=== PATIENT | male | born 1960 | race Two or more races ===

== ENCOUNTER 2020-04-10 08:38 | Outpatient (REF) | payer OTHER, SELFPAY ==
[2020-04-10 09:44] LABS: Alanine Aminotransferase 35 U/L (0-40); Albumin Level 4.1 g/dL (3.5-5.0); Alkaline Phosphatase 83 U/L (39-117); Anion Gap 10 (12-20); Aspartate Amino Transferase 16 U/L (5-37); Bilirubin Total 0.8 mg/dL (0.0-1.0); Blood Urea Nitrogen 17 mg/dL (9-16); Calcium 9.6 mg/dL (8.4-10.2); Carbon Dioxide 31 mmol/L (22-29); Chloride 101 mmol/L (96-108); Cholesterol 141 mg/dL; Estimated Glomerular Filt Rate 57; Glucose Fasting 178 mg/dL (60-99); HDL Cholesterol 35 mg/dL; LDL Cholesterol Calculated 87 mg/dl; Potassium 4.8 mmol/l (3.3-5.1); Sodium 137 mmol/L (135-145); Total Protein 7.1 g/dL (6.5-8.0); Triglycerides 99 mg/dL
[2020-04-10 10:07] LABS: Vitamin D 25-OH Total 29.2 ng/mL (>30)
[2020-04-10 11:06] LABS: Creatinine Urine 122.33 mg/dL; Microalbum/Creatinine Ratio Ur 11.4 ug/mg cr
== END 2020-04-10 08:39 | disposition home or self-care (01) ==
LOC: HO.LAB 08:38
PROVIDERS: PCP Internal Medicine; Visit Provider Internal Medicine
DX: E11.9 Type 2 diabetes mellitus without complications (principal); E55.9 Vitamin D deficiency, unspecified
CPT/HCPCS: 80053; 80061; 82043; 82306

== ENCOUNTER 2020-04-19 08:00 | Outpatient (RCR) | payer OTHER, SELFPAY | END 2020-05-15 07:41 | disposition home or self-care (01) | LOC: HO.WCC 08:00 | PROVIDERS: Visit Provider Physician Assistant | DX: L23.7 Allergic contact dermatitis due to plants, except food (principal); E11.40 Type 2 diabetes mellitus with diabetic neuropathy, unspecified; I10 Essential (primary) hypertension; Z79.84 Long term (current) use of oral hypoglycemic drugs | CPT/HCPCS: 99204; 99212 ==

== ENCOUNTER 2020-06-28 07:25 | Outpatient (REF) | payer OTHER, SELFPAY ==
[2020-06-28 08:02] LABS: MANUAL DIFF FLAG NO
[2020-06-28 08:10] LABS: Basophils Percent Auto 0.4 % (0-2); Eosinophils Absolute Auto 0.3 X10*3/uL (0.0-0.4); Eosinophils Percent Auto 3.2 % (0-4); Hematocrit 45.4 % (42-52); Hemoglobin 15.3 g/dl (14.0-18.0); Imm Gran Abs Auto 0.07 X10*3/uL (0.00-0.03); Imm Gran Pct Auto 0.8 % (0.0-0.4); Lymphocytes Absolute Auto 1.9 X10*3/uL (1.2-4.9); Lymphocytes Percent Auto 20.7 % (20-40); Mean Corpuscular HGB Conc 33.7 g/dl (31.0-36.0); Mean Corpuscular Hemoglobin 31.3 pg (27.0-33.0); Mean Corpuscular Volume 92.8 fL (80-98); Mean Platelet Volume 11.2 fL (9.4-12.4); Monocytes Absolute Auto 0.8 X10*3/uL (0.1-1.2); Monocytes Percent Auto 8.7 % (2-11); Neutrophils Absolute Auto 6.1 X10*3/uL (2.0-8.3); Neutrophils Percent Auto 66.2 % (45-73); Platelet Count 184 X10*3/uL (160-400); Red Blood Count 4.89 X10*6/uL (4.60-5.80); Red Cell Distribution Width 12.9 % (11.0-16.0); White Blood Count 9.2 X10*3/uL (4.8-10.8)
[2020-06-28 08:40] LABS: Alanine Aminotransferase 29 U/L (0-40); Albumin Level 4.3 g/dL (3.5-5.0); Alkaline Phosphatase 69 U/L (39-117); Anion Gap 10 (12-20); Aspartate Amino Transferase 18 U/L (5-37); Bilirubin Total 0.4 mg/dL (0.0-1.0); Blood Urea Nitrogen 16 mg/dL (9-16); Calcium 9.1 mg/dL (8.4-10.2); Carbon Dioxide 28 mmol/L (22-29); Chloride 105 mmol/L (96-108); Cholesterol 191 mg/dL; Estimated Glomerular Filt Rate > 60; Glucose Fasting 115 mg/dL (60-99); HDL Cholesterol 35 mg/dL; LDL Cholesterol Calculated 117 mg/dl; Potassium 4.4 mmol/L (3.3-5.1); Sodium 139 mmol/L (135-145); Total Protein 7.1 g/dL (6.5-8.0); Triglycerides 197 mg/dL
[2020-06-28 08:42] LABS: Creatinine Urine 169.15 mg/dL; Microalbum/Creatinine Ratio Ur 11.8 ug/mg cr
[2020-07-03 13:58] LABS: Immunoglobulin A 428 mg/dL (70-320)
[2020-07-04 12:27] LABS: Transglutaminase Ab IgG 2 U/mL; Transglutaminase IgA 1 U/mL
[2020-07-10 21:52] LABS: Endomysial IgA Antibody Negative (Negative)
== END 2020-06-28 07:26 | disposition home or self-care (01) ==
LOC: HO.LAB 07:25
PROVIDERS: PCP Internal Medicine; Visit Provider Internal Medicine
DX: E11.9 Type 2 diabetes mellitus without complications (principal); E78.5 Hyperlipidemia, unspecified; R21 Rash and other nonspecific skin eruption
CPT/HCPCS: 36415; 80053; 80061; 82043; 82784; 83516; 85025; 86003; 86255; 86256

== ENCOUNTER 2021-05-05 06:58 | Outpatient (REF) | payer OTHER, SELFPAY ==
--- NOTE | ~2021-05-05 | XR_ITS ---
EXAMINATION: XR HIP, RIGHT CLINICAL INFORMATION: Pain. COMPARISON: None TECHNIQUE: Two views of the right hip. FINDINGS: The femoral head contour is smooth. There is some mild irregularity of the labral attachment and sclerosis in the region. The joint space is fairly well preserved. No significant osteophytic spurring. Some mild irregularity at the level of the lesser trochanter may be degenerative. XR/XR hip RT min 2V IMPRESSION: The femoral head contour is smooth. Some mild degenerative changes are felt to be present.
[2021-05-05 08:21] LABS: Alanine Aminotransferase 39 U/L (0-40); Albumin Level 4.3 g/dL (3.5-5.0); Alkaline Phosphatase 64 U/L (39-117); Anion Gap 11 (12-20); Aspartate Amino Transferase 20 U/L (5-37); Bilirubin Total 0.6 mg/dL (0.0-1.0); Blood Urea Nitrogen 17 mg/dL (9-16); Calcium 9.8 mg/dL (8.4-10.2); Carbon Dioxide 28 mmol/L (22-29); Chloride 104 mmol/L (96-108); Cholesterol 117 mg/dL; Estimated Glomerular Filt Rate 59; Glucose Fasting 121 mg/dL (60-99); HDL Cholesterol 32 mg/dL; LDL Cholesterol Calculated 63 mg/dl; Potassium 4.1 mmol/L (3.3-5.1); Sodium 139 mmol/L (135-145); Total Protein 6.9 g/dL (6.5-8.0); Triglycerides 111 mg/dL
[2021-05-05 09:19] LABS: Creatinine Urine 99.84 mg/dL
[2021-05-09 13:20] LABS: Vitamin D 25-OH, D2 <4 ng/mL; Vitamin D 25-OH, D3 29 ng/mL; Vitamin D 25-OH, Total 29 ng/mL (30-100)
== END 2021-05-05 06:59 | disposition home or self-care (01) ==
LOC: HO.XRAY 06:58
PROVIDERS: PCP Internal Medicine; Visit Provider Internal Medicine
DX: M25.551 Pain in right hip (principal); E78.5 Hyperlipidemia, unspecified; E11.9 Type 2 diabetes mellitus without complications; E55.9 Vitamin D deficiency, unspecified
CPT/HCPCS: 36415; 73502; 80053; 80061; 82043; 82306

== ENCOUNTER 2021-12-22 06:59 | Outpatient (REF) | payer OTHER, SELFPAY ==
[2021-12-22 07:58] LABS: Alanine Aminotransferase 32 U/L (0-40); Albumin Level 4.3 g/dL (3.5-5.0); Alkaline Phosphatase 68 U/L (39-117); Anion Gap 14 (12-20); Aspartate Amino Transferase 20 U/L (5-37); Bilirubin Total 0.4 mg/dL (0.0-1.0); Blood Urea Nitrogen 16 mg/dL (9-16); Calcium 9.4 mg/dL (8.4-10.2); Carbon Dioxide 25 mmol/L (22-29); Chloride 107 mmol/L (96-108); Cholesterol 167 mg/dL; Estimated Glomerular Filt Rate > 60; Glucose Fasting 119 mg/dL (60-99); HDL Cholesterol 34 mg/dL; LDL Cholesterol Calculated 112 mg/dl; Potassium 4.9 mmol/L (3.3-5.1); Sodium 141 mmol/L (135-145); Total Protein 7.2 g/dL (6.5-8.0); Triglycerides 109 mg/dL
[2021-12-22 09:15] LABS: Creatinine Urine 112.03 mg/dL
[2021-12-27 13:22] LABS: Vitamin D 25-OH, D2 <4 ng/mL; Vitamin D 25-OH, D3 39 ng/mL; Vitamin D 25-OH, Total 39 ng/mL (30-100)
== END 2021-12-22 07:00 | disposition home or self-care (01) ==
LOC: HO.LAB 06:59
PROVIDERS: PCP Internal Medicine; Visit Provider Internal Medicine
DX: E11.9 Type 2 diabetes mellitus without complications (principal); E55.9 Vitamin D deficiency, unspecified; E78.5 Hyperlipidemia, unspecified
CPT/HCPCS: 36415; 80053; 80061; 82043; 82306

== ENCOUNTER 2022-04-27 07:19 | Outpatient (REF) | payer OTHER, SELFPAY ==
[2022-04-27 08:34] LABS: Creatinine Urine 157.93 mg/dL; Microalbum/Creatinine Ratio Ur 11.3 ug/mg cr
[2022-04-27 08:59] LABS: Alanine Aminotransferase 41 U/L (0-40); Albumin Level 4.4 g/dL (3.5-5.0); Alkaline Phosphatase 75 U/L (39-117); Anion Gap 11 (12-20); Aspartate Amino Transferase 21 U/L (5-37); Bilirubin Total 0.5 mg/dL (0.0-1.0); Blood Urea Nitrogen 19 mg/dL (9-16); Calcium 9.9 mg/dL (8.4-10.2); Carbon Dioxide 30 mmol/L (22-29); Chloride 106 mmol/L (96-108); Cholesterol 102 mg/dL; Estimated Glomerular Filt Rate 55; Glucose Fasting 131 mg/dL (60-99); HDL Cholesterol 33 mg/dL; LDL Cholesterol Calculated 49 mg/dl; Potassium 4.8 mmol/L (3.3-5.1); Sodium 142 mmol/L (135-145); Total Protein 7.2 g/dL (6.5-8.0); Triglycerides 103 mg/dL; Vitamin D 25-OH Total 40.7 ng/mL (>30)
== END 2022-04-27 07:20 | disposition home or self-care (01) ==
LOC: HO.LAB 07:19
PROVIDERS: PCP Internal Medicine; Visit Provider Internal Medicine
DX: E78.5 Hyperlipidemia, unspecified (principal); E55.9 Vitamin D deficiency, unspecified; E11.9 Type 2 diabetes mellitus without complications; E78.00 Pure hypercholesterolemia, unspecified
CPT/HCPCS: 36415; 80053; 80061; 82043; 82306

== ENCOUNTER 2022-08-26 06:59 | Outpatient (REF) | payer OTHER, SELFPAY ==
[2022-08-26 08:01] LABS: Alanine Aminotransferase 32 U/L (0-40); Albumin Level 4.3 g/dL (3.5-5.0); Alkaline Phosphatase 65 U/L (39-117); Anion Gap 11 (12-20); Aspartate Amino Transferase 20 U/L (5-37); Bilirubin Total 0.6 mg/dL (0.0-1.0); Blood Urea Nitrogen 18 mg/dL (9-16); Calcium 9.6 mg/dL (8.4-10.2); Carbon Dioxide 27 mmol/L (22-29); Chloride 107 mmol/L (96-108); Cholesterol 94 mg/dL; Estimated Glomerular Filt Rate 54; Glucose Fasting 128 mg/dL (60-99); HDL Cholesterol 29 mg/dL; LDL Cholesterol Calculated 46 mg/dl; Potassium 4.4 mmol/L (3.3-5.1); Sodium 141 mmol/L (135-145); Total Protein 6.9 g/dL (6.5-8.0); Triglycerides 98 mg/dL
[2022-08-26 08:14] LABS: Vitamin D 25-OH Total 47.6 ng/mL (>30)
[2022-08-26 08:33] LABS: Creatinine Urine 113.89 mg/dL; Microalbum/Creatinine Ratio Ur 8.7 ug/mg cr
== END 2022-08-26 07:00 | disposition home or self-care (01) ==
LOC: HO.LAB 06:59
PROVIDERS: PCP Internal Medicine; Visit Provider Internal Medicine
DX: E78.5 Hyperlipidemia, unspecified (principal); E55.9 Vitamin D deficiency, unspecified; E78.00 Pure hypercholesterolemia, unspecified; E11.9 Type 2 diabetes mellitus without complications
CPT/HCPCS: 36415; 80053; 80061; 82043; 82306

== ENCOUNTER 2022-12-28 07:06 | Outpatient (REF) | payer MEDICARE, MEDICAID, SELFPAY ==
[2022-12-28 08:44] LABS: Alanine Aminotransferase 24 U/L (0-40); Albumin Level 4.2 g/dL (3.5-5.0); Alkaline Phosphatase 63 U/L (39-117); Anion Gap 14 (12-20); Aspartate Amino Transferase 19 U/L (5-37); Bilirubin Total 0.4 mg/dL (0.0-1.0); Blood Urea Nitrogen 20 mg/dL (9-16); Calcium 9.5 mg/dL (8.4-10.2); Carbon Dioxide 24 mmol/L (22-29); Chloride 107 mmol/L (96-108); Cholesterol 98 mg/dL; Estimated Glomerular Filt Rate 60; Glucose Fasting 105 mg/dL (60-99); HDL Cholesterol 36 mg/dL; LDL Cholesterol Calculated 48 mg/dl; Potassium 4.4 mmol/L (3.3-5.1); Sodium 141 mmol/L (135-145); Total Protein 7.3 g/dL (6.5-8.0); Triglycerides 71 mg/dL
[2022-12-28 09:03] LABS: Vitamin D 25-OH Total 49.3 ng/mL (>30)
[2022-12-28 09:09] LABS: Folate 16.4 ng/mL (> or = 4.0); Vitamin B12 479 pg/mL (200-900)
[2022-12-28 09:37] LABS: Creatinine Urine 95.12 mg/dL; Microalbum/Creatinine Ratio Ur 7.3 ug/mg cr
== END 2022-12-28 07:07 | disposition home or self-care (01) ==
LOC: HO.LAB 07:06
PROVIDERS: PCP Internal Medicine; Visit Provider Internal Medicine
DX: E55.9 Vitamin D deficiency, unspecified (principal); E53.8 Deficiency of other specified B group vitamins; E11.9 Type 2 diabetes mellitus without complications; E78.5 Hyperlipidemia, unspecified
CPT/HCPCS: 36415; 80053; 80061; 82043; 82306; 82607; 82746

== ENCOUNTER 2023-01-05 13:20 | Outpatient (AMB) | payer MEDICARE, MEDICAID, SELFPAY ==
--- NOTE | 2023-01-05 13:30 | MHC.PC.OV ---
Vital Signs 01/05/23 13:42 Height 5 ft 5 in Weight 177 lb 8 oz BMI 29.5 BP 132/84 Blood Pressure Location Lt brachial Position Sitting Pulse 53 Pulse Source Pulse Oximeter Pulse Oximetry (%) 98 Intake Visit Reasons: dm Intake Note: Pt here for DM type II F/U. Emergency Medicine Physician Assistant Required: No Accompanied by: Self / Same As Patient Allergies amlodipine Allergy (Intermediate, Verified 01/05/23 13:45) palpitations, palpatations atorvastatin Allergy (Intermediate, Verified 01/05/23 13:45) numbness and tingling hydrochlorothiazide Allergy (Intermediate, Verified 01/05/23 13:45) loopiness Medication List - Last Reconciled 01/05/23 by Tahmina Gordon MD cholecalciferol (vitamin D3) 25 mcg PO DAILY 90 days lisinopril 10 mg PO DAILY metformin 500 mg PO DAILY 90 days rosuvastatin 20 mg PO DAILY 90 days sertraline 25 mg PO DAILY 90 days triamcinolone acetonide 0.1% 1 appl topical DAILY 30 days Tobacco use date assessed: 08/31/22 Fall risk assessment: No Falls in past year Last assessed Fall Risk: 01/05/23 Dental Screening Dental Screen Date: 01/05/23 Did you have a dental visit in the last 12 months?: No Did you have a dental problem in the last 6 months where you did not have access to dental care?: No Was dental information given to patient?: Yes HPI HPI Comments History of Present Illness Details This is a 63-year-old male with diabetes mellitus type 2, hypertension, pure hypercholesterolemia and low vitamin-D has well as anxiety that comes today for follow-up on his conditions. A1c within goal. Blood pressure stable. LDL within goal. On supplements for vitamin-D. Anxiety stable with sertraline. No chest pain or shortness of breath. [facility], [facility] Medical History Diabetes mellitus Essential hypertension Hypovitaminosis D Pure hypercholesterolemia Rash Right hip pain Wound cellulitis Surgical History History of vasectomy Family History Father No problems noted. Mother CVD (cardiovascular disease) Diabetes Social History Housing: Apartment Alcohol intake: former Patient Tobacco Use Status: Never used Tobacco e-Cigarette/Vaping Use: Never Used Second Hand Smoke Exposure: No service: No Current occupational status: employed Cognitive needs: No Hearing needs: No Vision needs: No Questionnaire Thrive Questionnaire Date Thrive assessed: 08/31/22 MARILOU-7 AMB Questionnaire MARILOU-7 Date MARILOU - 7 assessed: 08/31/22 Source: Developed by Drs. Cameron Massey, Elizabeth Correa, Bernabe Rodriguez and colleagues, with an educational red from [employer]. Review of Systems Const All systems reviewed & are unremarkable except as noted in HPI and below Eyes Reports no additional complaints, Denies change in vision and Denies other visual disturbances Card Denies chest pain at rest, Denies chest pain with activity, Denies edema, Denies irregular heart rhythm, Denies claudication, Denies dyspnea, Denies dyspnea on exertion, Denies orthopnea, Denies paroxysmal nocturnal dyspnea and Denies slow heart rate Resp Denies cough, Denies dyspnea and Denies dyspnea on exertion GI Denies abdominal pain, Denies change in bowel habits, Denies excessive flatus, Denies nausea and Denies vomiting Denies urinary hesitancy, Denies urinary incontinence and Denies urinary urgency Musc Denies abnormal gait, Denies atrophy, Denies deformity and Denies limited range of motion Skin/Breast Denies bleeding lesions, Denies changing lesions and Denies rash Neuro Denies abnormal gait and Denies lack of coordination Physical exam (Primary Care) Vital Signs: Last Vital Signs Pulse 53 01/05/23 13:42 BP 132/84 01/05/23 13:42 Pulse Ox 98 01/05/23 13:42 BMI result Body Mass Index 29.5 Tobacco/Smoking Status: Tobacco use Status Tobacco use date assessed 08/31/22 01/05/23 13:30 Patient Tobacco Use Status Never used Tobacco 01/05/23 13:30 e-Cigarette/Vaping Use Never Used 01/05/23 13:30 Thrive Assessment: Date of Thrive Assessment Date Thrive assessed 08/31/22 01/05/23 13:30 Eyes General: appearance normal, both eyes and all related structures Eyelids: Yes eyelids normal Conjunctivae: conjunctivae normal Neck Neck: Yes normal visual inspection and Yes supple Resp Effort & Inspection: normal respiratory effort Auscultation: clear to auscultation bilaterally Cardio Jugular venous distension: no JVD Rate: regular rate Rhythm: regular rhythm Heart sounds: S1 normal heart sound present and S2 normal heart sound present Extrem General: Yes full ROM Results AMB Hemoglobin A1c AMB Hemoglobin A1c 6.3 % Last Edit by YOAN Tuttle on 01/05/23 13:51 Assessment and Plan Assessment & Plan (1) Diabetes mellitus: Code(s): E11.9 - Type 2 diabetes mellitus without complications Qualifiers: Diabetes mellitus type: type 2 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 A1c goal is equal or less than 7%. (2) Essential hypertension: Code(s): I10 - Essential (primary) hypertension Plan: Continue lisinopril. Blood pressure goal is equal or less than 130/80. (3) Pure hypercholesterolemia: Code(s): E78.00 - Pure hypercholesterolemia, unspecified Plan: Continue statins. LDL goal is less than 70 (4) Anxiety: Code(s): F41.9 - Anxiety disorder, unspecified Plan: Continue sertraline (5) Hypovitaminosis D: Code(s): E55.9 - Vitamin D deficiency, unspecified Plan: Continue vitamin-D supplements Orders: Orders Comprehensive [place]. Panel Fast 4 Months E11.9 - Type 2 diabetes mellitus without complications Lipid Panel 4 Months E78.5 - Hyperlipidemia, unspecified Vitamin D 25-OH Total 4 Months E55.9 - Vitamin D deficiency, unspecified Microalbumin, Random (w Creat) 4 Months E11.9 - Type 2 diabetes mellitus without complications AMB Hemoglobin A1c Today E11.9 - Type 2 diabetes mellitus without complications Medications: Refilled triamcinolone acetonide 0.1% 1 appl topical DAILY 30 days 30 grams 1RF Coding Level of Care Code Est Pt Level 4 (64142) Diagnoses Diabetes mellitus E11.9 Diabetes mellitus type: type 2 Diabetes mellitus fci insulin use: without termite technician use Diabetes mellitus complication status: without complication Essential hypertension I10 Pure hypercholesterolemia E78.00 Anxiety F41.9 Hypovitaminosis D E55.9 Time Spent (min) 23
[2023-01-05 13:42] VITALS: BP 132/84; PULSE 53; O2SAT 98; BMI 29.5
== END 2023-01-05 13:57 | disposition home or self-care (01) ==
PROVIDERS: Visit Provider Internal Medicine
DX: E11.9 Type 2 diabetes mellitus without complications (principal); I10 Essential (primary) hypertension; F41.9 Anxiety disorder, unspecified; E55.9 Vitamin D deficiency, unspecified; E78.00 Pure hypercholesterolemia, unspecified
CPT/HCPCS: 83036; 99214

== ENCOUNTER 2023-04-22 11:43 | Emergency (ER) | payer OTHER, SELFPAY ==
--- NOTE | ~2023-04-22 | CT_ITS ---
EXAMINATION: CT ABDOMEN AND PELVIS WITHOUT CONTRAST CLINICAL INFORMATION: Flank pain. COMPARISON: None available. TECHNIQUE: Multidetector volumetric imaging was performed from the superior aspect of the liver through the pubic symphysis. Sagittal and coronal reformatted images were obtained on the technologist's workstation. This CT examination was performed using dose optimization techniques as appropriate, variously including the following: *Automated exposure control *Adjustment of mA and/or kV according to patient size (this includes techniques or standardized protocols for targeted exams where dose is matched to indication/reason for exam; i.e. extremities or head) *Use of iterative reconstruction technique DLP: 538 mGy-cm FINDINGS: LUNG BASES: The visualized lung bases are unremarkable. LIVER, GALLBLADDER, AND BILIARY TREE: The liver is of diminished attenuation. No focal liver lesions are seen. There is no intrahepatic biliary duct dilatation. The gallbladder is unremarkable with no evidence of radiopaque gallstones, gallbladder wall thickening, or obvious pericholecystic inflammatory changes. PANCREAS: Unremarkable. SPLEEN: Unremarkable. ADRENAL GLANDS: Unremarkable. KIDNEYS AND URETERS: A 1.4 cm calculus mid to upper pole left kidney with left upper pole collecting system/calyceal distention. There is also a 5 mm calculus midpole left kidney. There is no hydronephrosis. BLADDER: Unremarkable. GASTROINTESTINAL TRACT: There are diverticula of the descending and proximal sigmoid colon without diverticulitis. The appendix is visualized and is within normal limits ABDOMINAL WALL: No significant hernia is appreciated. LYMPH NODES: Normal. VASCULAR: Unremarkable. PELVIC VISCERA: Unremarkable. OSSEOUS STRUCTURES: Unremarkable. CT/CT abdomen pelvis wo IV con IMPRESSION: Diverticula of the descending and the sigmoid colon without diverticulitis. 1.4 cm calculus mid to upper pole left kidney with distended upper pole calyces/upper pole intrarenal hydronephrosis. Fatty infiltration of the liver. Fleischner guidelines were followed.
[2023-04-22 12:17] VITALS: BP 162/72; PULSE 54; RESP 18; TEMP 36.3; O2SAT 96; BMI 28.5
[2023-04-22 13:13] LABS: MANUAL DIFF FLAG NO
[2023-04-22 13:14] LABS: Basophils Absolute Auto 0.1 X10*3/uL (0.0-0.2); Basophils Percent Auto 0.5 % (0-2); Eosinophils Absolute Auto 0.2 X10*3/uL (0.0-0.4); Eosinophils Percent Auto 1.8 % (0-4); Hematocrit 44.6 % (42.0-52.0); Imm Gran Abs Auto 0.04 X10*3/uL (0.00-0.03); Imm Gran Pct Auto 0.4 % (0.0-0.4); Lymphocytes Absolute Auto 2.1 X10*3/uL (1.2-4.9); Lymphocytes Percent Auto 20.9 % (20-40); Mean Corpuscular HGB Conc 33.6 g/dl (31.0-36.0); Mean Corpuscular Hemoglobin 30.9 pg (27.0-33.0); Mean Corpuscular Volume 91.8 fL (80.0-98.0); Mean Platelet Volume 10.8 fL (9.4-12.4); Monocytes Absolute Auto 0.9 X10*3/uL (0.1-1.2); Monocytes Percent Auto 9.4 % (2-11); Neutrophils Absolute Auto 6.6 x10*3/uL (2.0-8.3); Platelet Count 177 X10*3/uL (160-400); Red Blood Count 4.86 X10*6/uL (4.60-5.80); Red Cell Distribution Width 12.5 % (11.0-16.0); White Blood Count 9.8 X10*3/uL (4.8-10.8)
[2023-04-22 13:27] LABS: Alanine Aminotransferase 27 U/L (0-40); Albumin Level 4.4 g/dL (3.5-5.0); Alkaline Phosphatase 64 U/L (39-117); Anion Gap 11 (12-20); Aspartate Amino Transferase 20 U/L (5-37); Bilirubin Total 0.4 mg/dL (0.0-1.0); Blood Urea Nitrogen 18 mg/dL (9-16); Calcium 10.1 mg/dL (8.4-10.2); Carbon Dioxide 28 mmol/L (22-29); Chloride 105 mmol/L (96-108); Creatinine Clr Calc Pharmacy 61.5; Estimated Glomerular Filt Rate 59; Glucose Random 149 mg/dL (60-115); Potassium 4.4 mmol/L (3.3-5.1); Sodium 140 mmol/L (135-145); Total Protein 7.6 g/dL (6.5-8.0)
--- NOTE | 2023-04-22 19:31 | ED.ABDPAIN ---
HPI - Abdominal Pain General Chief Complaint: Abdominal Pain Stated Complaint: Abd pain right side Time Seen by Provider: 04/22/23 19:27 Source: patient Mode of arrival: ambulatory Limitations: no limitations History of Present Illness HPI narrative: 63 yo male with PMH of HTN, HLD, DM here with c/o 1 month of R flank pain worse with deep breaths and certain movements. No known trauma, no GI or symptoms. no unexplained weight loss. He notes the pain has worsened over the past day. MD elicited complaint: abdominal pain and flank pain Pertinent past history: none Onset (ago): month(s) (1) Pain Consistency: constant Location: R flank Severity: moderate Quality: aching Radiation: none Migration to: no migration Exacerbating factors: other (breathing and movement) Relieving factors: nothing Associated symptoms: denies other symptoms Related Data Previous Rx's Medication Instructions Recorded sertraline 25 mg tablet 25 mg PO DAILY 90 days #90 tabs 04/30/22 rosuvastatin 20 mg tablet 20 mg PO DAILY 90 days #90 tabs 11/08/22 triamcinolone acetonide 0.1 % 1 appl topical DAILY 30 days #30 01/05/23 topical cream grams cholecalciferol (vitamin D3) 25 25 mcg PO DAILY 90 days #90 tabs 03/30/23 mcg (1,000 unit) tablet metformin 500 mg tablet 500 mg PO DAILY 90 days #90 tabs 03/30/23 lisinopril 10 mg tablet 10 mg PO DAILY #90 caps 03/31/23 lidocaine 5 % topical patch 1 patch topical DAILY #30 ea 04/22/23 Allergies Allergy/AdvReac Type Severity Reaction Status Date / Time amlodipine Allergy Intermediate palpitations, Verified 04/22/23 12:17 palpatations atorvastatin Allergy Intermediate numbness Verified 04/22/23 12:17 and tingling hydrochlorothiazide Allergy Intermediate loopiness Verified 04/22/23 12:17 Review of Systems Review of Systems Constitutional : No Weight loss, No Fever, No Chills ENT/Mouth : No sore throat, No Rhinorrhea Eyes: No Swelling, No Redness Cardiovascular : No Chest Pain, No SOB, NoEdema Respiratory : No Cough, No Sputum, No Wheezing Gastrointestinal : no Nausea, no Vomiting, no Diarrhea, positive abdominal Pain, No Hematochezia, No Melena Genitourinary : No Dysuria, No Urinary Frequency, No Hematuria, No Urgency Musculoskeletal : No joint pain, No Myalgias, No Joint Swelling Skin : No Skin Lesions, No rash Neuro : No Weakness, No Numbness, No Dizziness, No Headache Psych : No Anxiety/Panic, No Depression Heme/Lymph: No Bruising, No Lymphadenopathy Endocrine : No Polyuria, No Polydipsia All other systems reviewed and are negative. [facility] Past Medical History Attestation statement: The following information was validated with the patient. Source: old records reviewed Medical History Hypovitaminosis D Right hip pain Rash Wound cellulitis Pure hypercholesterolemia Essential hypertension Diabetes mellitus Surgical History History of vasectomy Family History Family History Father No problems noted. Mother CVD (cardiovascular disease) Diabetes Social History Social History Housing: Apartment Alcohol intake: former Patient Tobacco Use Status: Never used Tobacco e-Cigarette/Vaping Use: Never Used Second Hand Smoke Exposure: No Advance Directives: No Advance Directives Information Provided: Yes service: No Current occupational status: employed Cognitive needs: No Hearing needs: No Vision needs: No Physical Exam ED Vital Signs: Vital Signs - 24 hr 04/22/23 12:17 Temperature 97.4 F Pulse Rate 54 Respiratory Rate 18 Blood Pressure 162/72 H Pulse Oximetry 96 Oxygen Delivery Method Room Air BMI result Body Mass Index 28.5 Appearance: Alert. Oriented X3. No acute distress. Eyes: Pupils equal, round and reactive to light. ENT: Pharynx normal. Neck: Normal inspection. Neck supple. CVS: Normal heart rate and rhythm. Pulses normal. Respiratory: No respiratory distress. Breath sounds normal. Abdomen: Soft and mild R sided abdominal pain. Skin: Skin warm and dry. Normal skin color. Normal skin turgor. Extremities: No lower extremity edema. No calf ttp Neuro: Oriented X 3. No motor deficit. No sensory deficit. Medical Decision Making Medical Decision Making MDM Narrative: 63 yo male with PMH of HTN, HLD, DM here with c/o R flank pain worse with moving and breathing denies trauma at this time will need UA, labs, CT scan for renal colic and mass. Differential Diagnosis Differential Diagnoses: The differential diagnosis associated with the presentation includes renal colic, mass Admission/Observation Consideration of admission/observation: Escalation of care including admission/observation considered labs, UA and CT scan no acute findings stable for DC Lab Data MDM Lab Attestation statement: I reviewed the patient's lab results. 04/22/23 13:08 04/22/23 13:08 Labs: Lab Results 04/22/23 04/22/23 Range/Units 13:08 19:43 WBC 9.8 (4.8-10.8) X10*3/uL RBC 4.86 (4.60-5.80) X10*6/uL Hgb 15.0 (14.0-18.0) g/dl Hct 44.6 (42.0-52.0) % MCV 91.8 (80.0-98.0) fL MCH 30.9 (27.0-33.0) pg MCHC 33.6 (31.0-36.0) g/dl RDW 12.5 (11.0-16.0) % Plt Count 177 (160-400) X10*3/uL MPV 10.8 (9.4-12.4) fL Immature Gran % (Auto) 0.4 (0.0-0.4) % Neut % (Auto) 67.0 (45-73) % Lymph % (Auto) 20.9 (20-40) % [place] % (Auto) 9.4 (2-11) % Eos % (Auto) 1.8 (0-4) % Baso % (Auto) 0.5 (0-2) % Lymph # (Auto) 2.1 (1.2-4.9) X10*3/uL [place] # (Auto) 0.9 (0.1-1.2) X10*3/uL Eos # (Auto) 0.2 (0.0-0.4) X10*3/uL Baso # (Auto) 0.1 (0.0-0.2) X10*3/uL Abs Immat Gran (auto) 0.04 H (0.00-0.03) X10*3/uL Absolute Neuts (auto) 6.6 (2.0-8.3) x10*3/uL Absolute Nucleated RBC 0.000 (0.0-0.012) X10*3/uL Nucleated RBC % (auto) 0.0 (0.0-0.2) /100WBC Sodium 140 (135-145) mmol/L Potassium 4.4 (3.3-5.1) mmol/L Chloride 105 (96-108) mmol/L Carbon Dioxide 28 (22-29) mmol/L Anion Gap 11 L (12-20) BUN 18 H (9-16) mg/dL Creatinine 1.23 (0.5-1.4) mg/dL Estim Creat Clear Calc 61.5 Estimated GFR 59 Random Glucose 149 H (60-115) mg/dL Calcium 10.1 D (8.4-10.2) mg/dL Total Bilirubin 0.4 (0.0-1.0) mg/dL AST 20 (5-37) U/L ALT 27 (0-40) U/L Alkaline Phosphatase 64 (39-117) U/L Total Protein 7.6 (6.5-8.0) g/dL Albumin 4.4 (3.5-5.0) g/dL Urine Color Yellow Urine Appearance Clear Urine pH 5.5 (5.0-9.0) Ur Specific [place] 1.020 (1.005-1.025) Urine Protein Negative (Neg-Trace) mg/dL Urine Glucose (UA) 100 H (Negative) mg/dL Urine Ketones Negative (Negative) mg/dL Urine Blood Negative (Negative) Urine Nitrite Negative (Negative) Ur Leukocyte Esterase Negative (Negative) Independent Interpretation I performed an independent interpretation of an: CT Scan (no acute findings on CT scan to explain symptoms) Radiology Impression Discussion of test interpretation with radiology: I have reviewed the radiologist's reading. External Record Review External record reviewed: Inpatient record Prescription Management I considered prescription management with: Other Discharge Plan Discharge Clinical Impression: Acute right flank pain Patient Disposition: Home, Self-Care Instructions: Acute Abdominal Pain (ED) Additional Instructions: return for fevers, vomiting, worsening pain or any other concerns. please follow up with your primary care doctor about this pain. CT/CT abdomen pelvis wo IV con IMPRESSION: Diverticula of the descending and the sigmoid colon without diverticulitis. 1.4 cm calculus mid to upper pole left kidney with distended upper pole calyces/upper pole intrarenal hydronephrosis. Fatty infiltration of the liver. Prescriptions: New lidocaine 5 % adhesive patch,medicated 1 patch topical DAILY Qty: 30 0RF Rx Instructions: leave on most painful area for up to 12 hrs No Action rosuvastatin 20 mg tablet 20 mg PO DAILY 90 Days Qty: 90 1RF metformin 500 mg tablet 500 mg PO DAILY 90 Days Qty: 90 3RF cholecalciferol (vitamin D3) 25 mcg (1,000 unit) tablet 25 mcg PO DAILY 90 Days Qty: 90 3RF lisinopril 10 mg tablet 10 mg PO DAILY Qty: 90 2RF sertraline 25 mg tablet 25 mg PO DAILY 90 Days Qty: 90 0RF triamcinolone acetonide 0.1 % cream 1 appl topical DAILY 30 Days Qty: 30 1RF Referrals: Tahmina Mathias MD [Primary Care Provider] - 2 days
[2023-04-22 19:57] LABS: Appearance Urine Clear; Color Urine Yellow; Glucose Urine UA 100 mg/dL (Negative); Leukocyte Esterase Urine Negative (Negative); Nitrite Urine Negative (Negative); PH 5.5 (5.0-9.0); Urine Blood Negative (Negative); Urine Ketones Negative (Negative); Urine Protein Negative (Neg-Trace)
== END 2023-04-22 21:32 | disposition home or self-care (01) ==
PROVIDERS: Emergency Provider Emergency Medicine; PCP Internal Medicine
DX: R10.2 Pelvic and perineal pain (principal); R10.9 Unspecified abdominal pain; Z79.899 Other long term (current) drug therapy
CPT/HCPCS: 36415; 74176; 80053; 81003; 85025; 99282; 99284

== ENCOUNTER 2023-05-04 14:14 | Outpatient (AMB) | payer OTHER, SELFPAY ==
--- NOTE | 2023-05-04 14:26 | MHC.PC.OV ---
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 Accompanied by: Self / Same As Patient Allergies amlodipine Allergy (Intermediate, Verified 05/04/23 14:47) palpitations, palpatations atorvastatin Allergy (Intermediate, Verified 05/04/23 14:47) numbness and tingling hydrochlorothiazide Allergy (Intermediate, Verified 05/04/23 14:47) loopiness Medication List - Last Reconciled 05/04/23 by Tahmina Gordon MD cholecalciferol (vitamin D3) 25 mcg PO DAILY 90 days lidocaine 5% 1 patch topical DAILY lisinopril 10 mg PO DAILY metformin 500 mg PO DAILY 90 days rosuvastatin 20 mg PO DAILY 90 days triamcinolone acetonide 0.1% 1 appl topical DAILY 30 days Tobacco use date assessed: 08/31/22 Fall risk assessment: No Falls in past year Last assessed Fall Risk: 05/04/23 Dental Screening Dental Screen Date: 05/04/23 Did you have a dental visit in the last 12 months?: Yes Did you have a dental problem in the last 6 months where you did not have access to dental care?: No Was dental information given to patient?: Patient has dentist HPI HPI Comments History of Present Illness Details This is a 63-year-old male with diabetes mellitus type 2 that comes for his physical exam. A1c is within goal. Has diabetic eye exam appointment in May 2023. Last colonoscopy was 2014 and was normal. Had an episode of abdominal pain recently in which CT scan of abdomen and pelvis was done showing fatty liver and left 1.4 cm renal calculus and will be referred to Urology. No chest pain or shortness of breath. [facility] Medical History (Updated 05/04/23 @ 14:57 by Tahmina Gordon MD) Hypovitaminosis D Right hip pain Rash Wound cellulitis Pure hypercholesterolemia Essential hypertension Diabetes mellitus Surgical History History of vasectomy Family History Father No problems noted. Mother CVD (cardiovascular disease) Diabetes Social History Housing: Apartment Alcohol intake: former Patient Tobacco Use Status: Never used Tobacco e-Cigarette/Vaping Use: Never Used Second Hand Smoke Exposure: No service: No Current occupational status: employed Cognitive needs: No Hearing needs: No Vision needs: No Questionnaire Thrive Questionnaire Date Thrive assessed: 08/31/22 MARILOU-7 AMB Questionnaire MARILOU-7 Date MARILOU - 7 assessed: 08/31/22 Source: Developed by Drs. Cameron Massey, Elizabeth Correa, Bernabe Rodriguez and colleagues, with an educational red from [employer]. Review of Systems Const All systems reviewed & are unremarkable except as noted in HPI and below Eyes Reports no additional complaints, Denies change in vision and Denies other visual disturbances Card Denies chest pain at rest, Denies chest pain with activity, Denies edema, Denies irregular heart rhythm, Denies claudication, Denies dyspnea, Denies dyspnea on exertion, Denies orthopnea, Denies paroxysmal nocturnal dyspnea and Denies slow heart rate Resp Denies cough, Denies dyspnea and Denies dyspnea on exertion GI Denies abdominal pain, Denies change in bowel habits, Denies excessive flatus, Denies nausea and Denies vomiting Denies urinary hesitancy, Denies urinary incontinence and Denies urinary urgency Musc Denies abnormal gait, Denies atrophy, Denies deformity and Denies limited range of motion Skin/Breast Denies bleeding lesions, Denies changing lesions and Denies rash Neuro Denies abnormal gait, Denies behavioral changes, Denies confusion and Denies lack of coordination Psych Denies behavioral changes and Denies confusion Physical exam (Primary Care) Vital Signs: Last Vital Signs BP 142/82 H 05/04/23 14:29 BMI result Body Mass Index 27.7 Tobacco/Smoking Status: Tobacco use Status Tobacco use date assessed 08/31/22 05/04/23 14:27 Patient Tobacco Use Status Never used Tobacco 05/04/23 14:27 e-Cigarette/Vaping Use Never Used 05/04/23 14:27 Thrive Assessment: Date of Thrive Assessment Date Thrive assessed 08/31/22 05/04/23 14:27 Const General: No confusion Orientation/consciousness: patient oriented x3 and No confusion HENMT Head: Yes normal to inspection, Yes normocephalic and Yes atraumatic Ears: external ears normal Eyes General: appearance normal, both eyes and all related structures Eyelids: Yes eyelids normal Conjunctivae: conjunctivae normal Neck Neck: Yes normal visual inspection and Yes supple Resp Effort & Inspection: normal respiratory effort Auscultation: clear to auscultation bilaterally Cardio Jugular venous distension: no JVD Rate: regular rate Rhythm: regular rhythm Heart sounds: S1 normal heart sound present and S2 normal heart sound present GI Inspection: Yes normal to inspection Palpation (GI): Soft to palpation and nontender Auscultation: normal bowel sounds Skin General skin exam: no rashes or lesions noted Neuro General: patient oriented x3, no focal motor deficits and No confusion Extrem General: Yes full ROM Psych Appearance: grossly normal Office Procedures Flu Questionnaire Does the patient have a severe egg allergy?: No Results AMB Hemoglobin A1c AMB Hemoglobin A1c 6.6 % Last Edit by BRAVO Horton on 05/04/23 14:36 Immunizations flu vacc [id number] 6mos up(PF) 60 mcg(15 mcgx4)/0.5 mL IM syringe Performing Provider: Tahmina Gordon MD [facility] Documented (not given) by: BRAVO Horton on 05/04/23 14:29 Reason Not Given: Patient Refused Results Reviewed Results Reviewed: Laboratory Last Values Hgb A1c (Clinic) 6.6 % (4.0-6.0) H 05/04/23 14:25 Assessment and Plan Assessment & Plan (1) Physical exam: Code(s): Z00.00 - Encounter for general adult medical examination without abnormal findings Plan: Repeat in a year. 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 A1c goal is equal or less than 7%. Orders: Orders Lipid Panel 4 Months E78.5 - Hyperlipidemia, unspecified Comprehensive [place]. Panel Fast 4 Months Z00.00 - Encounter for general adult medical examination without abnormal findings AMB Hemoglobin A1c Today E11.9 - Type 2 diabetes mellitus without complications Influenza [id number] Immunization Today Z23 - Encounter for immunization Microalbumin, Random (w Creat) 4 Months E11.9 - Type 2 diabetes mellitus without complications Vitamin D 25-OH Total 4 Months E55.9 - Vitamin D deficiency, unspecified Referrals Urology Referral N20.0 - Calculus of kidney Medications: New lisinopril 20 mg PO DAILY 90 tabs 1RF 90 days Discontinued lisinopril Discontinued Reason: Patient Refused 10 mg PO DAILY 90 caps 2RF Coding Level of Care Code Est Pt Prev Care >65y(18808) Diagnoses Physical exam Z00.00 Type 2 diabetes mellitus without complication, without long-term current use of insulin E11.9 Diabetes mellitus type: type 2 Diabetes mellitus 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
[2023-05-04 14:29] VITALS: BP 142/82; BMI 27.7
== END 2023-05-04 14:58 | disposition home or self-care (01) ==
PROVIDERS: Visit Provider Internal Medicine
DX: Z00.00 Encounter for general adult medical examination without abnormal findings (principal); E11.9 Type 2 diabetes mellitus without complications
CPT/HCPCS: 83036; 99397

== ENCOUNTER 2023-06-01 08:44 | Outpatient (AMB) | payer OTHER, SELFPAY ==
--- NOTE | 2023-06-01 08:47 | A.OFFVIS_ITS ---
Intake Intake Visit Reasons: Kidney stone Intake Note: New Patient presents for initial visit for kidney stone Urology Medications: none Blood Thinner: none Cvicu Rn Required: No Accompanied by: Self / Same As Patient Allergies amlodipine Allergy (Intermediate, Verified 06/01/23 09:13) palpitations, palpatations atorvastatin Allergy (Intermediate, Verified 06/01/23 09:13) numbness and tingling hydrochlorothiazide Allergy (Intermediate, Verified 06/01/23 09:13) loopiness Medication List - Last Reconciled 06/01/23 by AIXA Lagos cholecalciferol (vitamin D3) 25 mcg PO DAILY 90 days lisinopril 20 mg PO DAILY 90 days metformin 500 mg PO DAILY 90 days rosuvastatin 20 mg PO DAILY 90 days triamcinolone acetonide 0.1% 1 appl topical DAILY 30 days HPI HPI Comments History of Present Illness Details Rosales is a very pleasant 63-year-old male patient of Dr.Roca Gordon. He has a past medical history of vitamin-D deficiency, hypercholesteremia, hypertension, and diabetes. He presents to the office today as a new patient for nephrolithiasis. In discussion with the patient today he reports having seeked emergency room care approximately 1 month ago for right- sided flank pain had been experiencing. Recent CT results reviewed with the patient today. A 1.4 cm calculus mid to upper pole left kidney with left upper pole collecting system/calyceal distention. There is also a 5 mm calculus midpole left kidney. There is no hydronephrosis. The bladder is unremarkable. When asked he denies any previous history of nephrolithiasis and or surgical intervention for nephrolithiasis. Discussed at length nephrolithiasis. Discussed potential causes of nephrolithiasis as well as treatment options of surveillance monitoring versus surgical intervention. He reports he continues with right-sided intermittent flank pain. However discussed nephrolithiasis on left side. Discussed ESWL versus ureteroscopy at length discussed risks and benefits of these treatment options. When asked he does report to be drinking plenty of water daily. He denies any bothersome urinary issues. He denies urinary urgency, urinary frequency, incontinence, nocturia, hematuria, dysuria, foul smelling urine, changes to urinary stream, flank pain, fever, and or chills. He is happy with h current voiding parameters. [facility] Medical History Hypovitaminosis D Right hip pain Rash Wound cellulitis Pure hypercholesterolemia Essential hypertension Diabetes mellitus Surgical History History of vasectomy Family History Father No problems noted. Mother CVD (cardiovascular disease) Diabetes Social History Housing: Apartment Alcohol intake: former Patient Tobacco Use Status: Never used Tobacco e-Cigarette/Vaping Use: Never Used Second Hand Smoke Exposure: No service: No Current occupational status: employed Cognitive needs: No Hearing needs: No Vision needs: No Review of Systems Const All systems reviewed & are unremarkable except as noted in HPI and below Eyes Reports no additional complaints ENT Reports no additional complaints Card Reports as per HPI Resp Reports no additional complaints GI Reports no additional complaints Reports as per HPI Musc Reports no additional complaints Neuro Reports no additional complaints Psych Reports no additional complaints Endo Reports no additional complaints Jorge Luis/Lymph Reports no additional complaints Aller/Immun Reports no additional complaints Physical Exam Const General: cooperative, healthy appearing, comfortable, no acute distress, well developed, alert and awake Orientation/consciousness: patient oriented x3 Limitations: no limitations HEENT Head: Yes normal to inspection, Yes normocephalic and Yes atraumatic Ears: hearing grossly normal bilaterally Eyes General: appearance normal, both eyes and all related structures Neck Neck: Yes normal visual inspection and Yes trachea midline Chest Chest palpation & inspection: normal inspection of the chest Resp Effort & Inspection: normal respiratory effort and able to speak in complete sentences Cardio Rate: regular rate GI Inspection: Yes normal to inspection General: Yes no CVA tenderness Back/Spine/Pelvis Back: no CVA tenderness Skin General skin exam: no rashes or lesions noted Neuro General: patient oriented x3 Extrem General: Yes normal to inspection Psych Appearance: grossly normal and well kempt Mental Status: mental status grossly normal Speech and movement: Normal speech and movement present and Clear speech present Affect: normal affect Attitude: cooperative Thought process: Normal thought process present Thought content: Normal thought content present Insight: Fair insight present (Psych) Judgement: Fair judgement present (Psych) Results AMB Urinalysis, Automated UA Leukoctes 0 Chelita/uL Last Edit by Corbyyce Orlin on 06/01/23 08:58 UA Nitrite Negative Last Edit by Saratae Brechava on 06/01/23 08:58 UA Urobilinogen 0.2 mg/dL Last Edit by Saratamicki Ordaz on 06/01/23 08:58 UA Protein 0 mg/dL Last Edit by Saratae Orlin on 06/01/23 08:58 UA pH 6.0 Last Edit by Saratae Orlin on 06/01/23 08:58 UA Blood 0 Casper/uL Last Edit by Saratae Brechava on 06/01/23 08:58 UA Specific Randolph 1.020 Last Edit by ReaLyncchava on 06/01/23 08:58 UA Ketone Negative Last Edit by Saratamicki [employer] on 06/01/23 08:58 UA Bilirubin 0 mg/dL Last Edit by Saratamicki Ordaz on 06/01/23 08:58 UA Glucose 0 mg/dL Last Edit by Saratamicki [employer] on 06/01/23 08:58 Results Reviewed Results Reviewed: Laboratory Last Values Urine pH (Auto) 6.0 06/01/23 08:53 Specific Randolph (Auto) 1.020 06/01/23 08:53 Urine Protein (Auto) 0 mg/dL 06/01/23 08:53 Glucose (UA)(Auto) 0 mg/dL 06/01/23 08:53 Urine Ketones (Auto) Negative 06/01/23 08:53 Urine Blood (Auto) 0 Casper/uL 06/01/23 08:53 Urine Nitrite (Auto) Negative 06/01/23 08:53 Urine Bilirubin (Auto) 0 mg/dL 06/01/23 08:53 Urine Urobilinogen (Auto) 0.2 mg/dL 06/01/23 08:53 Leukocyte Esterase (Auto) 0 Chelita/uL 06/01/23 08:53 Date of Service: 04/22/23 EXAMINATION: CT ABDOMEN AND PELVIS WITHOUT CONTRAST LIVER, GALLBLADDER, AND BILIARY TREE: The liver is of diminished attenuation. No focal liver lesions are seen. There is no intrahepatic biliary duct dilatation. The gallbladder is unremarkable with no evidence of radiopaque gallstones, gallbladder wall thickening, or obvious pericholecystic inflammatory changes. PANCREAS: Unremarkable. SPLEEN: Unremarkable. ADRENAL GLANDS: Unremarkable. KIDNEYS AND URETERS: A 1.4 cm calculus mid to upper pole left kidney with left upper pole collecting system/calyceal distention. There is also a 5 mm calculus midpole left kidney. There is no hydronephrosis. BLADDER: Unremarkable. GASTROINTESTINAL TRACT: There are diverticula of the descending and proximal sigmoid colon without diverticulitis. The appendix is visualized and is within normal limits ABDOMINAL WALL: No significant hernia is appreciated. LYMPH NODES: Normal. VASCULAR: Unremarkable. PELVIC VISCERA: Unremarkable. OSSEOUS STRUCTURES: Unremarkable. IMPRESSION: Diverticula of the descending and the sigmoid colon without diverticulitis. 1.4 cm calculus mid to upper pole left kidney with distended upper pole calyces/upper pole intrarenal hydronephrosis. Fatty infiltration of the liver. Assessment & Plan Assessment & Plan (1) Nephrolithiasis: Code(s): N20.0 - Calculus of kidney Plan: Plan Extracorporeal Shock Wave Lithotripsy We discussed the nature of the decision and reasonable alternatives for performing the above surgery. Interventions include chemical dissolution, ESWL, ureteroscopy with laser lithotripsy and stent placement, PCNL. ? Options such as medical therapy were discussed. The relative uncertainties and benefits related to each alternate procedure were adequately discussed. General surgical risks including, but not limited to, pain, bleeding, infection, myocardial infarction, pulmonary embolus, deep vein thrombosis and cerebrovascular accident which may result in further hospitalization were discussed.? Full disclosure of the procedure as well as all major risks, benefits and complications were discussed including but not limited to risks of bleeding, injury to the kidney with hematoma or molly-hematoma, failure to fragments stone, potential for ureteric obstruction from stone passage and need for secondary procedures.? There is a small long-term risk of hypertension and a question kenneth of diabetes.? Success rate of fragmentation and passage is approximately 70- 75%.? This is compared to the risks and benefits for ureteroscopy which has a higher success rate but is a more invasive procedure. The success rate of the procedure was discussed. Success of the procedure in the short-term does not necessarily guarantee that long-term success will be maintained. Suitable follow up will need to be maintained. The patient showed understanding of the discussion as well as the typical recovery time, and the outpatient nature of this procedure. Opportunity was given for questions. Repeat-back protocol used to confirm understanding. They wish to proceed with Left ESWL Plan In office urinalysis results reviewed with the patient today; as noted above. Recent CT results reviewed with the patient today Discussed at length surveillance monitoring verses further treatment options with surgical intervention; discussed risks and benefits of these interventions at length Discussed at length potential causes of nephrolithiasis. Discussed, educated, and stressed the importance of drinking plenty of water daily. Patient currently denies any bothersome urinary issues. He is happy with his current voiding parameters. Will schedule for left-sided ESWL as discussed Follow up status post ESWL per Dr. Otero's order; or sooner with any issues, concerns, and or questions. Orders: Orders AMB Urinalysis Automated Today Z13.9 - Encounter for screening, unspecified Patient Instructions: The patient had an opportunity to ask questions regarding the treatment plan. All questions were answered. Physical exam, labs, and imaging were discussed and reviewed in detail. As well as risks, benefits, and discussion of treatment choices. No major barriers to understanding were identified. The patient expressed understanding and agreement with the above treatment plan. The patient was made aware they should contact our office by phone for worsening of their current condition, the appearance of new symptoms, or with any questions or concerns. Compliance is encouraged with any medications and follow up testing that is ordered. It is a privilege to be allowed the opportunity to participate in? your urological care.? Again, if you have any questions or concerns If you have any questions or concerns please do not hesitate to contact me. The office is [phone]. This note is constructed using voice recognition software. While every effort has been made to ensure accuracy scheme technician errors may have been included. Yours sincerely, LUIGI Lagos Coding Level of Care Code New Pt Level 4 (49905) Diagnoses Nephrolithiasis N20.0
== END 2023-06-01 09:28 | disposition home or self-care (01) ==
PROVIDERS: PCP Internal Medicine; Visit Provider Nurse Practitioner Family
DX: N20.0 Calculus of kidney (principal); Z13.9 Encounter for screening, unspecified
CPT/HCPCS: 99204

== ENCOUNTER → 2023-06-01 08:44 | Outpatient (BNVA) | payer OTHER, SELFPAY | PROVIDERS: PCP Internal Medicine; Visit Provider Nurse Practitioner Family | DX: N20.0 Calculus of kidney (principal) | CPT/HCPCS: 81003; 99202 ==

== ENCOUNTER 2023-07-15 15:35 | Outpatient (AMB) | payer OTHER, SELFPAY ==
[2023-07-15 15:49] VITALS: BP 184/84; PULSE 55; RESP 17; O2SAT 99; BMI 28.3
--- NOTE | 2023-07-15 15:49 | A.OFFPC_ITS ---
Vital Signs 07/15/23 15:49 Height 5 ft 7 in Weight 180 lb 8 oz BMI 28.3 BP 184/84 H Blood Pressure Location Lt brachial Position Sitting Respiration 17 Pulse 55 Pulse Source Pulse Oximeter Pulse Oximetry (%) 99 Oxygen Delivery Method Room Air Intake Visit Reasons: High Blood Pressure F/u Intake Note: Dr. Jara's patient is here for a blood pressure follow-up following a medication change. Staff Nurse Midwife Required: No Accompanied by: Self / Same As Patient Allergies amlodipine Allergy (Intermediate, Verified 07/15/23 16:05) palpitations, palpatations atorvastatin Allergy (Intermediate, Verified 07/15/23 16:05) numbness and tingling hydrochlorothiazide Allergy (Intermediate, Verified 07/15/23 16:05) loopiness Medication List - Last Reconciled 07/15/23 by Arya Goetz PA-C cholecalciferol (vitamin D3) 25 mcg PO DAILY 90 days lisinopril 20 mg PO DAILY 90 days metformin 500 mg PO DAILY 90 days rosuvastatin 20 mg PO DAILY 90 days triamcinolone acetonide 0.1% 1 appl topical DAILY 30 days Tobacco use date assessed: 07/15/23 Fall risk assessment: No Falls in past year Last assessed Fall Risk: 07/15/23 HPI High Blood Pressure F/u HPI Details Patient is a 63 male here today for problem visit. Patient has a past medical history significant for hypertension, nephrolithiasis, hyperlipidemia and type 2 diabetes. Has noted his blood pressure be elevated, today in office blood pressure very elevated. Continues on lisinopril 20 though does not feel it is helping him reduce his blood pressure. * of note does have a large right renal stone measured at 1 point 2 cm. He is due for removal though not until August 10. Concerned about this as his blood pressures have been ranging 180s to 190 systolic. He denies any headaches, dizziness or chest pain. PLAN: Will add on doxazosin 2 mg and up titrate per response. Advised to continue monitoring blood pressure at home [facility] Medical History Hypovitaminosis D Right hip pain Rash Wound cellulitis Pure hypercholesterolemia Essential hypertension Diabetes mellitus Surgical History History of vasectomy Family History Father No problems noted. Mother CVD (cardiovascular disease) Diabetes Social History Housing: Apartment Alcohol intake: former Patient Tobacco Use Status: Never used Tobacco e-Cigarette/Vaping Use: Never Used Second Hand Smoke Exposure: No service: No Current occupational status: employed Cognitive needs: No Hearing needs: No Vision needs: No Questionnaire Thrive Questionnaire Date Thrive assessed: 08/31/22 MARILOU-7 AMB Questionnaire MARILOU-7 Date MARILOU - 7 assessed: 08/31/22 Source: Developed by Drs. Cameron Massey, Elizabeth Correa, Bernabe Rodriguez and colleagues, with an educational red from [employer]. Review of Systems Const Denies headache(s) Eyes Denies loss of vision ENT Denies vertigo, Denies dizziness, Denies headache(s) and Denies sore throat Card Denies chest pain, Denies leg edema and Denies lightheadedness Resp Denies cough, Denies hemoptysis and Denies wheezing GI Denies abdominal pain, Denies melena, Denies constipation, Denies diarrhea and Denies vomiting Denies dysuria, Denies urinary frequency and Denies urinary urgency Musc Denies arthralgias, Denies joint swelling, Denies numbness and Denies tingling Neuro Denies Abnormal speech present, Denies behavioral changes, Denies vertigo, Denies dizziness, Denies headache(s), Denies loss of vision, Denies memory loss, Denies numbness and Denies tingling Psych Denies anxiety, Denies behavioral changes, Denies depression, Denies memory loss and Denies panic attacks Jorge Luis/Lymph Denies easy bleeding and Denies easy bruising Aller/Immun Denies wheezing Physical exam (Primary Care) Vital Signs: Last Vital Signs Pulse 55 07/15/23 15:49 Resp 17 07/15/23 15:49 BP 184/84 H 07/15/23 15:49 Pulse Ox 99 07/15/23 15:49 Oxygen Delivery Method Room Air 07/15/23 15:49 BMI result Body Mass Index 28.3 Tobacco/Smoking Status: Tobacco use Status Tobacco use date assessed 07/15/23 07/15/23 15:56 Patient Tobacco Use Status Never used Tobacco 07/15/23 15:56 e-Cigarette/Vaping Use Never Used 07/15/23 15:56 Thrive Assessment: Date of Thrive Assessment Date Thrive assessed 08/31/22 07/15/23 15:56 Const General: healthy appearing, no acute distress, alert and awake Nutritional Appearance: well nourished Orientation/consciousness: oriented to person, oriented to place and oriented to time HENMT Ears: TM's normal bilaterally General nose exam: Normal nasal mucous membranes and turbinates present Eyes Conjunctivae: conjunctivae normal Sclerae: sclerae normal Pupils: Equal, round and reactive pupils present Neck Neck: Yes no lymphadenopathy and Yes no JVD Thyroid: Thyroid normal Carotids: no bruits Resp Effort & Inspection: normal respiratory effort and not tachypneic Auscultation: no crackles, no rales, no rhonchi and no wheezes Cardio Rate: regular rate Rhythm: regular rhythm Heart sounds: no murmurs and normal S1 and S2 GI Palpation (GI): Soft to palpation, nontender, no hepatomegaly and no splenomegaly Auscultation: normal bowel sounds Skin General skin exam: no rashes or lesions noted and dry skin Neuro General: oriented to person, oriented to place and oriented to time Cranial nerves: Yes Equal, round and reactive pupils present Speech: No Abnormal speech present Gait exam (Neuro): Normal gait present Motor exam (neuro): no tremor noted Extrem Right upper extremity: full ROM Left upper extremity: full ROM Right lower extremity: full ROM; no edema Left lower extremity: full ROM; no edema Psych Mental Status: mental status grossly normal Speech and movement: Normal speech and movement present Affect: normal affect Attitude: cooperative Thought process: Normal thought process present Assessment and Plan Assessment & Plan (1) Essential hypertension: Code(s): I10 - Essential (primary) hypertension Plan: Patient's blood pressure elevated today in office. He reports that home blood pressures have been elevated over the last several weeks. He is asymptomatic without any headache, chest pain, dizziness. Will add on doxazosin 2 mg better blood pressure control. Of note does have a large kidney stone in his right kidney with hydronephrosis to which he is due to have removed next month. (2) Nephrolithiasis: Code(s): N20.0 - Calculus of kidney Plan: As above, Will reach out to his urologist group to see if earlier procedure can be managed. Medications: New doxazosin 2 mg PO DAILY 30 days 30 tabs 1RF I10 - Essential (primary) hypertension Coding Level of Care Code Est Pt Level 3 (12360) Diagnoses Essential hypertension I10 Nephrolithiasis N20.0
== END 2023-07-15 16:15 | disposition home or self-care (01) ==
PROVIDERS: PCP Internal Medicine; Visit Provider Physician Assistant
DX: I10 Essential (primary) hypertension (principal); N20.0 Calculus of kidney
CPT/HCPCS: 99213

== ENCOUNTER 2023-07-28 10:40 | Outpatient (AMB) | payer OTHER, SELFPAY ==
--- NOTE | 2023-07-28 10:41 | A.OFFVIS_ITS ---
Intake Intake Visit Reasons: H&P ESWL Intake Note: Patient presents today for a telehealth follow-up Meds- Doxazosin Allergies to Antibiotic- No Known Allergies Blood Thinner- None Athletic Trainer Required: Yes Allergies amlodipine Allergy (Intermediate, Verified 07/28/23 10:42) palpitations, palpatations atorvastatin Allergy (Intermediate, Verified 07/28/23 10:42) numbness and tingling hydrochlorothiazide Allergy (Intermediate, Verified 07/28/23 10:42) loopiness HPI HPI Comments History of Present Illness Details Rosales is a pleasant male. He is a patient of Dr. Jara. He is seen for the following urologic conditions - nephrolithiasis Telemedicine Evaluation 15 min Consultation [employer] Video attempted Completed original assessment with nurse practitioner Amy Bañuelos Plan for ESWL left side 1.4 cm calculus This may represent a staged procedure Risks and benefits were discussed Understands pre operative issues for holding coagulation empiric medications [facility] Medical History Hypovitaminosis D Right hip pain Rash Wound cellulitis Pure hypercholesterolemia Essential hypertension Diabetes mellitus Surgical History History of vasectomy Family History Father No problems noted. Mother CVD (cardiovascular disease) Diabetes Social History Housing: Apartment Alcohol intake: former Patient Tobacco Use Status: Never used Tobacco e-Cigarette/Vaping Use: Never Used Second Hand Smoke Exposure: No service: No Current occupational status: employed Cognitive needs: No Hearing needs: No Vision needs: No Review of Systems Const All systems reviewed & are unremarkable except as noted in HPI and below Reports no additional complaints Resp Reports no additional complaints GI Reports no additional complaints Reports as per HPI Musc Reports no additional complaints Physical Exam Telemedicine evaluation Appropriate responses Regular breathing rate and rhythm HEENT Head: Yes normal to inspection Ears: hearing grossly normal bilaterally Eyes General: appearance normal, both eyes and all related structures Neck Neck: Yes normal visual inspection Chest Chest palpation & inspection: normal inspection of the chest Resp Effort & Inspection: normal respiratory effort and able to speak in complete sentences Assessment & Plan Assessment & Plan (1) Nephrolithiasis: Code(s): N20.0 - Calculus of kidney Plan Extracorporeal Shock Wave Lithotripsy We discussed the nature of the decision and reasonable alternatives for performing the above surgery. Interventions include chemical dissolution, ESWL, ureteroscopy with laser lithotripsy and stent placement, PCNL. Options such as medical therapy were discussed. The relative uncertainties and benefits related to each alternate procedure were adequately discussed. General surgical risks including, but not limited to, pain, bleeding, infection, myocardial infarction, pulmonary embolus, deep vein thrombosis and cerebrovascular accident which may result in further hospitalization were discussed. Full disclosure of the procedure as well as all major risks, benefits and complications were discussed including but not limited to risks of bleeding, injury to the kidney with hematoma or molly-hematoma, failure to fragments stone, potential for ureteric obstruction from stone passage and need for secondary procedures. There is a small long-term risk of hypertension and a question kenneth of diabetes. Success rate of fragmentation and passage is approximately 70- 75%. This is compared to the risks and benefits for ureteroscopy which has a higher success rate but is a more invasive procedure. The success rate of the procedure was discussed. Success of the procedure in the short-term does not necessarily guarantee that long-term success will be maintained. Suitable follow up will need to be maintained. The patient showed understanding of the discussion as well as the typical recovery time, and the outpatient nature of this procedure. Opportunity was given for questions. Repeat-back protocol used to confirm understanding. They wish to proceed with left ESWL Patient Instructions: Imaging studies, laboratory and physical exam results were discussed and reviewed in detail. No major barriers to patient understanding were identified. An opportunity to ask questions regarding the treatment plan was provided. All questions were answered. The patient expressed understanding and agreement with the above treatment plan. The patient is aware they should contact our office by phone for worsening of their current condition or the appearance of new urologic symptoms. Compliance is encouraged with any medications and followup testing that is ordered. It is a privilege to participate in the urologic care of your patient. If you have any questions or concerns regarding treatment for the above conditions, or other urologic issues, please do not hesitate to contact me. The office telephone contact is [phone]. This note is constructed using voice recognition software. While every effort has been made to ensure accuracy residential service technician errors may have been included. Yours sincerely, Dr Tomás Otero MD, [facility] - Urology Providers of Expert, Compassionate Care for the Genitourinary System Telehealth Telehealth Location of provider rendering services: practice address Location of patient: address on file Patient Identification confirmed using: Name, : Yes Telehealth method: voice only Patient verbally consented to treatment: Yes Patient verbally consented to billing insurance company: Yes Patient informed of any privacy concerns related to visit: Yes Minutes spent on Phone/Video with Pt.: 15 Coding Level of Care Code Tele Est Pt Level 4 (22897) Diagnoses Nephrolithiasis N20.0
== END 2023-07-28 11:22 | disposition home or self-care (01) ==
LOC: HO.HUSH 10:40
PROVIDERS: PCP Internal Medicine; Visit Provider Urology
DX: N20.0 Calculus of kidney (principal)
CPT/HCPCS: 99442

== ENCOUNTER → 2023-07-28 10:40 | Outpatient (BNVA) | payer OTHER, SELFPAY | PROVIDERS: PCP Internal Medicine; Visit Provider Urology ==

== ENCOUNTER 2023-08-11 05:57 | Day surgery (SDC) | payer OTHER, SELFPAY ==
[2023-08-09 14:22] VITALS: BMI 28.3
--- NOTE | 2023-08-10 09:49 | HO.ANESPROP2 ---
Documented by User: Mahi Crockett NP 08/10/23 09:49 HPI - Anesthesia Eval Consult details Narrative: 63yo M for Left Lithotripsy ESW PMFSH Active Problems Active Problems: All Active Problems (Updated 08/09/23 @ 14:18 by Alexandrea Silva RN) Nephrolithiasis (Acute) Anxiety (Acute) Physical exam (Acute) Eczema (Acute) Non-healing wound of right lower extremity (Acute) Hypovitaminosis D (Acute) Right hip pain (Acute) Rash (Acute) Wound cellulitis (Acute) Pure hypercholesterolemia (Acute) Essential hypertension (Acute) Diabetes mellitus (Acute) Past Medical History Medical History Anxiety Hypovitaminosis D Right hip pain Rash Wound cellulitis Pure hypercholesterolemia Essential hypertension Diabetes mellitus Family History Family History Father No problems noted. Mother CVD (cardiovascular disease) Diabetes Surgical History Surgical History H/O colonoscopy History of vasectomy Social History Social History Housing: Apartment Alcohol intake: former Patient Tobacco Use Status: Former Tobacco user Quit Date: 1989 e-Cigarette/Vaping Use: Never Used Second Hand Smoke Exposure: No Use of substances other than those prescribed or required for medical reasons: No Are you DNR?: No Advance Directives: No Advance Directives Information Provided: Yes service: No Current occupational status: employed Cognitive needs: No Hearing needs: No Vision needs: No Meds Allergies Allergy/AdvReac Type Severity Reaction Status Date / Time amlodipine Allergy Intermediate palpitations, Verified 08/11/23 06:49 palpatations atorvastatin Allergy Intermediate numbness Verified 08/11/23 06:49 and tingling hydrochlorothiazide Allergy Intermediate loopiness Verified 08/11/23 06:49 Exam Height,Weight and Vital Signs: Height 5 ft 7 in Weight 82.1 kg Assessment and Plan Assessment Anesthesia Assessment: Chart Reviewed Documented by User: Sydney Varela MD 08/11/23 07:25 PMFSH Past Medical History Medical History Anxiety Hypovitaminosis D Right hip pain Rash Wound cellulitis Pure hypercholesterolemia Essential hypertension Diabetes mellitus Family History Family History Father No problems noted. Mother CVD (cardiovascular disease) Diabetes Surgical History Surgical History H/O colonoscopy History of vasectomy History of Problems with Anesthesia: No Social History Social History Housing: Apartment Alcohol intake: former Patient Tobacco Use Status: Former Tobacco user Quit Date: 1989 e-Cigarette/Vaping Use: Never Used Second Hand Smoke Exposure: No Use of substances other than those prescribed or required for medical reasons: No Are you DNR?: No Advance Directives: No Advance Directives Information Provided: Yes service: No Current occupational status: employed Cognitive needs: No Hearing needs: No Vision needs: No Meds Allergies Allergy/AdvReac Type Severity Reaction Status Date / Time amlodipine Allergy Intermediate palpitations, Verified 08/11/23 06:49 palpatations atorvastatin Allergy Intermediate numbness Verified 08/11/23 06:49 and tingling hydrochlorothiazide Allergy Intermediate loopiness Verified 08/11/23 06:49 Exam Airway Mallampati Class: II TM Dist: >3cm Neck ROM: Full Loose/Missing/Broken Teeth: No Heart: RRR Lungs: CTA Assessment and Plan Assessment Anesthesia Assessment: Anesthesia Plan Discussed Final Anesthetic Review History of Problems with Anesthesia: No NPO: Yes ASA Class: II Final Preanesthetic Review: Meds/Allgs Chart Reviewed, Consent Obtained/Reviewed and Anes Risks/Benef Reviewed Patient Risk: Low Procedure Risk: Low Anesthetic Plan Anesthetic Plan: MAC: Disposition: Standard PACU
--- NOTE | ~2023-08-11 | XR_ITS ---
EXAMINATION: XR ABDOMEN KUB CLINICAL INDICATION: Pain. COMPARISON: None available. TECHNIQUE: AP view of the abdomen. FINDINGS: The bowel gas pattern is normal with no evidence of ileus or obstruction. There is a 1.8 cm calculus overlying the mid medial left renal silhouette. The bones are unremarkable. XR/XR KUB IMPRESSION: 1.8 cm calculus overlying the mid medial left renal silhouette. Nonobstructive bowel gas pattern.
[2023-08-11 06:50] VITALS: BMI 28.4
[2023-08-11 06:55] VITALS: BP 148/73; PULSE 49; RESP 15; TEMP 36.4; O2SAT 97
[2023-08-11] MEDS: Lactated Ringers 1,000 ML 100 ML IVCONT (07:02)
[2023-08-11 07:11] LABS: Glucose, Whole Blood 128 mg/dL (60-115)
--- NOTE | 2023-08-11 07:33 | MHC.SHP ---
Pre-Procedural Eval Section A - 24 Hr Update-Section A only Date of Service: 08/11/23 The patient is an INPATIENT: No Changes since office visit: No Cold of Flu in the past 2 weeks, No New Medical Problems, No Changes in Medication and No Patient answered all questions The patient has been examined within 24 hours of the surgical procedure. The History & Physical has been completed within 30 days and I have reviewed it.: Yes Section B - Complete if H&P > 30 days Chief Complaint: Calculus of kidney Allergies: Allergies Allergy/AdvReac Type Severity Reaction Status Date / Time amlodipine Allergy Intermediate palpitations, Verified 08/11/23 06:49 palpatations atorvastatin Allergy Intermediate numbness Verified 08/11/23 06:49 and tingling hydrochlorothiazide Allergy Intermediate loopiness Verified 08/11/23 06:49 Review of Systems Sugical H&P ROS: Negative: Constitution, Cardiovascular, Respiratory, Neurological, Psychiatric, Hem-Onc, Allergic/Immunologic, Gastrointestinal, Genitourinary, Musculoskeletal, Integumentary, Endocrine and Eyes/Ears/Nose/Throat Exam Surgical H&P Exam: Normal: HEENT, Normal: Heart, Normal: Lungs, Normal: Extremities, Normal: Abdomen, Normal: Skin and Normal: Neurological Plan Diagnosis/Plan: Unchanged (right 1.4cm stone) I have reviewed the history and physical and performed a pertinent physical examination on my patient. No changes have occurred unless specified. Time Spent With Patient Time: Total time managing care of this patient today ____ minutes.
[2023-08-11] MEDS: Acetaminophen 1,000 MG/100 ML PIGGYBACK 400 MG IV (07:35)
--- NOTE | 2023-08-11 08:59 | W.PM.OPN ---
Operative Note Operative Note Date of Service: 08/11/23 Narrative: PreOperative Diagnosis: right Renal stones Post Operative Diagnosis: right Renal stones Procedure: right ESWL Surgeon: Dr Tomás Otero Anesthesia: mac/sedation Indications for procedure: The patient understands ESWL may be a staged procedure and subsequent intervention may be required based on imaging after ESWL. Quoted stone clearance rates for a solitary procedure are in the 70-80% range based primarily on stone location. They also understand there is a risk of bleeding to the kidney, infection, damage to adjacent organs, and stone migration following the procedure. - Imaging 14mm right renal stone Procedure: After informed consent was verified the patient was brought to the operating room and placed in a supine position. Anesthesia was performed per protocol. Safety pause time-out was performed. Imaging was displayed in the room and laterality confirmed. ESWL was performed. The 1st 500 shocks were performed at 60 hertz. These were performed with increasing power. Once maximum power was reached the rate was increased to 180 hertz. A total of 2500 shocks were given. Targeted imaging with ultrasound/fluoroscopy showed stone smudging suggestive of disintegration. The patient tolerated the procedure well and was transferred to the recovery area upon completion. Post procedure imaging will be organized. There was no evidence for flank discoloration.
[2023-08-11 09:12] VITALS: BP 116/62; PULSE 48; RESP 18; TEMP 36.1; O2SAT 98
[2023-08-11 09:28] VITALS: BP 116/61; PULSE 47; RESP 17; O2SAT 97
[2023-08-11] MEDS: Phenazopyridine HCL 100 MG TABLET PO (09:39)
[2023-08-11 09:43] VITALS: BP 126/75; PULSE 45; RESP 18; TEMP 36.2; O2SAT 97
== END 2023-08-11 10:25 | disposition home or self-care (01) ==
PROVIDERS: PCP Internal Medicine; Visit Provider Urology
PROC: (CPT 50590; principal; 2023-08-11 08:20)
DX: N20.0 Calculus of kidney (principal); I10 Essential (primary) hypertension; E78.00 Pure hypercholesterolemia, unspecified; E11.9 Type 2 diabetes mellitus without complications; Z79.899 Other long term (current) drug therapy; Z88.8 Allergy status to other drugs, medicaments and biological substances; Z98.52 Vasectomy status; Z87.891 Personal history of nicotine dependence
CPT/HCPCS: 50590; 74018; 82947; J0131; J1940; J2250; J2704; J3010

== ENCOUNTER → 2023-08-11 05:57 | Outpatient (BNV) | payer OTHER, SELFPAY | PROVIDERS: PCP Internal Medicine; Visit Provider Urology | DX: N20.0 Calculus of kidney (principal) | CPT/HCPCS: 50590 ==

== ENCOUNTER 2023-08-31 08:52 | Outpatient (REF) | payer OTHER, SELFPAY ==
--- NOTE | ~2023-08-31 | US_ITS ---
EXAMINATION: US RETROPERITONEAL LIMITED (RENAL ONLY) CLINICAL INFORMATION: Calculus of kidney. History of recent lithotripsy. COMPARISON: CT abdomen and pelvis 04/22/2023. Renal ultrasound 08/15/2018. TECHNIQUE: Real-time imaging of the kidneys. FINDINGS: RIGHT KIDNEY: 12.0 x 4.7 x 4.8 cm (SAG x AP x TRV). The kidney is normal in size, contour, and echogenicity. Renal cortical thickness is normal. No calculi or focal parenchymal lesions. No hydronephrosis. LEFT KIDNEY: 12.5 x 5.9 x 4.5 cm (SAG x AP x TRV). The kidney is normal in size, contour, and echogenicity. Renal cortical thickness is normal. No focal parenchymal lesions. Multiple calculi are seen, the 3 largest measure 1.1 cm in the upper pole, 0.7 cm the mid kidney, 0.8 cm in the lower pole. There is mild hydronephrosis. US/US renal BI IMPRESSION: Multiple calculi are seen in the left kidney as measured above with mild hydronephrosis.
== END 2023-08-31 08:53 | disposition home or self-care (01) ==
LOC: HO.US 08:52
PROVIDERS: PCP Internal Medicine; Visit Provider Urology
DX: N20.0 Calculus of kidney (principal)
CPT/HCPCS: 76775

== ENCOUNTER 2023-09-08 09:38 | Outpatient (AMB) | payer OTHER, SELFPAY ==
--- NOTE | 2023-09-08 09:43 | A.OFFPC_ITS ---
Vital Signs 09/08/23 09:44 09/08/23 11:01 Height 5 ft 7 in Weight 181 lb BMI 28.3 BP 160/76 H 160/80 H Blood Pressure Location Lt brachial Lt brachial Position Sitting Sitting Intake Visit Reasons: dm Intake Note: Patient here for a follow up DM Gis Geographer Required: No Accompanied by: Self / Same As Patient Allergies amlodipine Allergy (Intermediate, Verified 09/08/23 10:15) palpitations, palpatations atorvastatin Allergy (Intermediate, Verified 09/08/23 10:15) numbness and tingling hydrochlorothiazide Allergy (Intermediate, Verified 09/08/23 10:15) loopiness Medication List - Last Reconciled 09/08/23 by Tahmina Gordon MD cholecalciferol (vitamin D3) 25 mcg PO DAILY 90 days doxazosin 2 mg PO DAILY 30 days lisinopril 20 mg PO DAILY 90 days metformin 500 mg PO DAILY 90 days naproxen 500 mg PO BID PRN 7 days oxycodone-acetaminophen 5-325 mg 1 tab PO Q4H PRN 7 days rosuvastatin 20 mg PO DAILY 90 days tamsulosin 0.4 mg PO BEDTIME 30 days triamcinolone acetonide 0.1% 1 appl topical DAILY 30 days Tobacco use date assessed: 07/15/23 Fall risk assessment: No Falls in past year Last assessed Fall Risk: 09/08/23 Dental Screening Dental Screen Date: 09/08/23 Did you have a dental visit in the last 12 months?: Yes Did you have a dental problem in the last 6 months where you did not have access to dental care?: No Was dental information given to patient?: Patient has dentist HPI HPI Comments History of Present Illness Details This is a 63-year-old male with diabetes mellitus type 2, hypertension, pure hypercholesterolemia and nephrolithiasis that comes today for follow-up on his conditions. A1c within goal. Blood pressure elevated and he took his medications. I will increase lisinopril from 20 mg to 30 mg. Blood pressure will be recheck in 3 weeks by nurse navigator. Lipid panel will be order and his LDL goal should be less than 70. He denies any chest pain or shortness of breath. Has nephrolithiasis follow by Urology. Last colonoscopy was 2013 and will be refer to another colonoscopy through open access. [facility] Medical History Anxiety Hypovitaminosis D Right hip pain Rash Wound cellulitis Pure hypercholesterolemia Essential hypertension Diabetes mellitus Surgical History H/O colonoscopy History of vasectomy Family History Father No problems noted. Mother CVD (cardiovascular disease) Diabetes Social History Housing: Apartment Alcohol intake: former Patient Tobacco Use Status: Former Tobacco user Quit Date: 1989 e-Cigarette/Vaping Use: Never Used Second Hand Smoke Exposure: No service: No Current occupational status: unemployed Cognitive needs: No Hearing needs: No Vision needs: Yes Questionnaire PHQ-9 Over the last 2 weeks, how often have you been bothered by any of the following problems? 1. Little interest or pleasure in doing things: not at all 2. Feeling down, depressed, or hopeless: not at all 3. Trouble falling or staying asleep, or sleeping too much: not at all 4. Feeling tired or having little energy: not at all 5. Poor appetite or overeating: not at all 6. Feeling bad about yourself - or that you are a failure or have let yourself or your family down: not at all 7. Trouble concentrating on things, such as reading the newspaper or watching television: not at all 8. Moving or speaking so slowly that other people could have noticed. Or the opposite - being so fidgety or restless that you have been moving around a lot more than usual: not at all 9. Thoughts that you would be better off or of hurting yourself in some way: not at all Total score: 0 Depression Screening Interpretation: Negative Depression Screening Done: Yes 58843 - PHQ-9 Billing: Yes Source: Developed by Drs. Cameron Massey, Elizabeth Correa, Bernabe Rodriguez and colleagues, with an educational red from [employer]. Thrive Questionnaire Date Thrive assessed: 09/08/23 I am a: Patient What is your living situation today?: I have a steady place to live Within the past 12 months, did the food you bought not last and you didn't have the money to get more?: Never true Within the past 12 months, did you worry whether your food would run out before you got money to buy more?: Never true Do you have trouble paying for medicines?: No Do you have trouble getting transportation to medical appointments?: No Do you have trouble paying your heating and electricity bill?: No Do you have trouble taking care of your child, family member or friend?: No Do you have trouble with day-to-day activities such as bathing, preparing meals, shopping, managing finances, etc.?: No Are you currently unemployed and looking for a job?: No Are you interested in more education?: No Please select the resources that you would like help with: None Currently or been in a relationship where the following occur: no concerns rep orted THRIVE Score: 0 AUDIT C Alcohol Use Questionnaire (AUDIT-C) 1. How often do you have a drink containing alcohol?: Never Total Score: 0 Score Reviewed/Action Taken: No MARILOU-7 AMB Questionnaire MARILOU-7 Date MARILOU - 7 assessed: 09/08/23 Feeling nervous, anxious, or on edge: 0 = Not at all Not being able to stop or control worryin = Not at all Worrying too much about different things: 0 = Not at all Trouble relaxin = Not at all Being so restless that it is hard to sit still: 0 = Not at all Becoming easily annoyed or irritable: 0 = Not at all Feeling afraid as if something awful might happen: 0 = Not at all Total MARILOU-7 score (0-4 normal; 5-9 mild; 10-14 moderate; 15-21 severe): 0 Source: Developed by Drs. Cameron Massey, Elizabeth Correa, Bernabe Rodriguez and colleagues, with an educational red from [employer]. MARILOU-7 Assessment Billing MARILOU-7 Assessment Tool: MARLIOU-7 Assessment 19385 Review of Systems Const All systems reviewed & are unremarkable except as noted in HPI and below Eyes Reports no additional complaints, Denies change in vision and Denies other visual disturbances Card Denies chest pain at rest, Denies chest pain with activity, Denies edema, Denies irregular heart rhythm, Denies claudication, Denies dyspnea, Denies dyspnea on exertion, Denies orthopnea, Denies paroxysmal nocturnal dyspnea and Denies slow heart rate Resp Denies cough, Denies dyspnea and Denies dyspnea on exertion Physical exam (Primary Care) Vital Signs: Last Vital Signs BP 160/76 H 09/08/23 09:44 BMI result Body Mass Index 28.3 Tobacco/Smoking Status: Tobacco use Status Tobacco use date assessed 07/15/23 09/08/23 09:51 Patient Tobacco Use Status Former Tobacco user 09/08/23 09:51 e-Cigarette/Vaping Use Never Used 09/08/23 09:51 PHQ-9: PHQ-9 Score PHQ-9: Total score 0 09/08/23 10:19 Depression Screening Interpretation: Negative Thrive Assessment: Date of Thrive Assessment Date Thrive assessed 09/08/23 09/08/23 09:51 Currently or been in a relationship where the following occur: no concerns reported Resp Effort & Inspection: normal respiratory effort Auscultation: clear to auscultation bilaterally Cardio Jugular venous distension: no JVD Rate: regular rate Rhythm: regular rhythm Heart sounds: S1 normal heart sound present and S2 normal heart sound present Extrem General: Yes full ROM Results AMB Hemoglobin A1c AMB Hemoglobin A1c 7.0 % Last Edit by BRAVO Horton on 09/08/23 09:5 4 Results Reviewed Results Reviewed: Laboratory Last Values Hgb A1c (Clinic) 7.0 % (4.0-6.0) H 09/08/23 09:42 Assessment and Plan Assessment & Plan (1) Diabetes mellitus: Code(s): E11.9 - Type 2 diabetes mellitus without complications Qualifiers: Diabetes mellitus type: type 2 Diabetes mellitus intermediate frame tender insulin use: without intermediate frame tender use Diabetes mellitus complication status: without complication Qualified Code(s): E11.9 - Type 2 diabetes mellitus without complications Plan: Continue metformin. A1c goal is equal or less than 7%. (2) Essential hypertension: Code(s): I10 - Essential (primary) hypertension Plan: Continue doxazosin. Increase lisinopril to 30 mg. Blood pressure goal is equal or less than 130/80. Recheck blood pressure with nurse navigator in 3 weeks. (3) Pure hypercholesterolemia: Code(s): E78.00 - Pure hypercholesterolemia, unspecified Plan: Continue statins. Repeat lipid panel. LDL goal is less than 70. (4) Nephrolithiasis: Code(s): N20.0 - Calculus of kidney Plan: Follow-up with Urology. Orders: Orders AMB Hemoglobin A1c Today E11.9 - Type 2 diabetes mellitus without complications Lipid Panel 4 Months E78.5 - Hyperlipidemia, unspecified Vitamin D 25-OH Total 4 Months E55.9 - Vitamin D deficiency, unspecified Microalbumin, Random (w Creat) 4 Months E11.9 - Type 2 diabetes mellitus [facility] complications Comprehensive [place]. Panel Fast 4 Months E11.9 - Type 2 diabetes mellitus without complications Referrals Open Access Screening Colonoscopy Referral Z12.11 - Encounter for screening for malignant neoplasm of colon Medications: New lisinopril 30 mg PO DAILY 90 tabs 1RF 90 days Discontinued lisinopril Discontinued Reason: Patient Completed Course 20 mg PO DAILY 90 days 90 tabs 1RF Coding Level of Care Code Est Pt Level 4 (55043) Diagnoses Type 2 diabetes mellitus without complication, without long-term current use of insulin E11.9 Diabetes mellitus type: type 2 Diabetes mellitus detention insulin use: without intermediate frame tender use Diabetes mellitus complication status: without complication Essential hypertension I10 Pure hypercholesterolemia E78.00 Nephrolithiasis N20.0 Additional Codes MARILOU-7 Assessment Billing - MARILOU-7 Assessment Tool: MARILOU-7 Assessment 40665 ([id number]) Time Spent (min) 22
[2023-09-08 09:44] VITALS: BP 160/76; BMI 28.3
[2023-09-08 11:01] VITALS: BP 160/80
== END 2023-09-08 10:28 | disposition home or self-care (01) ==
PROVIDERS: PCP Internal Medicine; Visit Provider Internal Medicine
DX: E11.9 Type 2 diabetes mellitus without complications (principal); I10 Essential (primary) hypertension; E78.00 Pure hypercholesterolemia, unspecified; N20.0 Calculus of kidney
CPT/HCPCS: 83036; 99214

== ENCOUNTER 2023-09-17 13:13 | Outpatient (AMB) | payer OTHER, SELFPAY ==
--- NOTE | 2023-09-17 13:19 | MHC.OFFVIS ---
Intake Visit Reasons: S/P ESWL/US Intake Note: Patient is Present for Follow Up Urology Medication: Not taking tamsulosin Antibiotic Allergies: None Blood Thinners:None Allergies amlodipine Allergy (Intermediate, Verified 09/08/23 10:15) palpitations, palpatations atorvastatin Allergy (Intermediate, Verified 09/08/23 10:15) numbness and tingling hydrochlorothiazide Allergy (Intermediate, Verified 09/08/23 10:15) loopiness HPI Comments Details: Rosales is a pleasant male. He is a patient of Dr. Jara. He is seen for the following urologic conditions - nephrolithiasis Follow-up ultrasound - fragments seen - suggest repeat ESWL left side Nephrolithiasis 08/14 ESWL Left - 1.[address] - 04/15 1.7 cm calculus PFSH Medical History Anxiety Hypovitaminosis D Right hip pain Rash Wound cellulitis Pure hypercholesterolemia Essential hypertension Diabetes mellitus Surgical History H/O colonoscopy History of vasectomy Family History Father No problems noted. Mother CVD (cardiovascular disease) Diabetes Social History Housing: Apartment Alcohol intake: former Patient Tobacco Use Status: Former Tobacco user Quit Date: 1989 e-Cigarette/Vaping Use: Never Used Second Hand Smoke Exposure: No service: No Current occupational status: unemployed Cognitive needs: No Hearing needs: No Vision needs: Yes Review of Systems Const Denies chills and Denies fever(s) Card Reports no additional complaints and Denies syncope Resp Denies cough GI Denies abdominal pain and Denies heartburn Reports as per HPI and Denies change in libido Neuro Denies syncope Psych Denies change in libido Endo Denies change in libido Physical Exam Const General: cooperative, healthy appearing, comfortable and no acute distress Orientation/consciousness: patient oriented x3 HEENT Face and sinus: Yes normal facial exam Mouth: moist mucous membranes Neck Neck: Yes normal visual inspection, Yes full ROM and Yes trachea midline Chest Chest palpation & inspection: normal inspection of the chest Resp Effort & Inspection: normal respiratory effort, able to speak in complete sentences and no respiratory distress GI Inspection: Yes normal to inspection Back/Spine/Pelvis Cervical Spine: normal cervical lordosis Thoracic/Lumbar Spine: thoracic and lumbar spine normal to inspection Skin General skin exam: no rashes or lesions noted Neuro General: patient oriented x3, gait normal, tone normal and moves all extremities Extrem General: Yes normal to inspection and Yes capillary refill normal Assessment & Plan Assessment & Plan (1) Nephrolithiasis: Code(s): N20.0 - Calculus of kidney Category: Medical Plan Repeat ESWL left side Risks, benefits and alternatives to therapy were discussed. These include but are not limited to infection, bleeding, damage to local organs and tissues, need for further interventions. Anesthetic risks regarding cardiac arrhythmia, blood clots, and potential mortality were discussed. The patient understands the typical recovery time and the outpatient nature of the procedure. After consideration of these risks the patient gives full informed consent and they wish to move ahead with the procedure. Patient Instructions: Imaging studies, laboratory and physical exam results were discussed and reviewed in detail. No major barriers to patient understanding were identified. An opportunity to ask questions regarding the treatment plan was provided. All questions were answered. The patient expressed understanding and agreement with the above treatment plan. The patient is aware they should contact our office by phone for worsening of their current condition or the appearance of new urologic symptoms. Compliance is encouraged with any medications and followup testing that is ordered. It is a privilege to participate in the urologic care of your patient. If you have any questions or concerns regarding treatment for the above conditions, or other urologic issues, please do not hesitate to contact me. The office telephone contact is [phone]. This note is constructed using voice recognition software. While every effort has been made to ensure accuracy drywall finisher errors may have been included. Yours sincerely, Dr Tomás Otero MD, [facility] - Urology Providers of Expert, Compassionate Care for the Genitourinary System Coding Level of Care Code Est Pt Level 4 (31944) Diagnoses Nephrolithiasis N20.0
== END 2023-09-17 13:44 | disposition home or self-care (01) ==
PROVIDERS: PCP Internal Medicine; Visit Provider Urology
DX: N20.0 Calculus of kidney (principal)
CPT/HCPCS: 99024

== ENCOUNTER → 2023-09-17 13:13 | Outpatient (BNVA) | payer OTHER, SELFPAY | PROVIDERS: PCP Internal Medicine; Visit Provider Urology | DX: N20.0 Calculus of kidney (principal) | CPT/HCPCS: 99212 ==

== ENCOUNTER 2023-11-10 13:23 | Outpatient (REF) | payer MEDICARE, MEDICAID, SELFPAY ==
--- NOTE | ~2023-11-10 | US_ITS ---
EXAMINATION: US RETROPERITONEAL LIMITED (RENAL ONLY) CLINICAL INFORMATION: Calculus of kidney. COMPARISON: Renal ultrasound 08/31/2023. X-ray abdomen 08/11/2023. CT abdomen and pelvis 04/22/2023. Renal ultrasound 08/15/2018. TECHNIQUE: Real-time imaging of the kidneys. Limited visualization due to bowel gas. FINDINGS: RIGHT KIDNEY: 10.9 x 4.8 x 5.3 cm (SAG x AP x TRV). No hydronephrosis. A 4 mm lower pole calculus. Renal cortical thickness is normal. Limited visualization. LEFT KIDNEY: 10.4 x 4.8 x 4.0 cm (SAG x AP x TRV). No hydronephrosis. Multiple renal calculi, largest 11 mm upper pole and 7 mm mid pole. Renal cortical thickness is normal. Limited visualization. US/US renal BI IMPRESSION: Bilateral renal calculi. No hydronephrosis.
== END 2023-11-10 13:24 | disposition home or self-care (01) ==
LOC: HO.US 13:23
PROVIDERS: PCP Internal Medicine; Visit Provider Urology
DX: N20.0 Calculus of kidney (principal)
CPT/HCPCS: 76775

== ENCOUNTER 2024-01-04 12:40 | Outpatient (AMB) | payer OTHER, SELFPAY ==
--- NOTE | 2024-01-04 12:55 | MHC.OFFVIS ---
Intake Visit Reasons: Ultrasound- follow up(set) Intake Note: Patient presents to the office today for a follow up ultrasound. Urology Medication: Not taking tamsulosin Antibiotic Allergies: None Blood Thinners:None Allergies amlodipine Allergy (Intermediate, Verified 01/25/24 10:00) palpitations, palpatations atorvastatin Allergy (Intermediate, Verified 01/25/24 10:00) numbness and tingling hydrochlorothiazide Allergy (Intermediate, Verified 01/25/24 10:00) loopiness HPI Comments Details: Rosales is a pleasant male. He is a patient of Dr. Jara. He is seen for the following urologic conditions - nephrolithiasis Follow-up ultrasound - fragments seen - suggest repeat ESWL left side Nephrolithiasis 08/14 ESWL Left - 1.[address] - 04/15 1.7 cm calculus PFSH Medical History Anxiety Hypovitaminosis D Right hip pain Rash Wound cellulitis Pure hypercholesterolemia Essential hypertension Diabetes mellitus Surgical History (Updated 02/21/24 @ 14:37 by Alexandrea Silva RN) Hx of lithotripsy H/O colonoscopy History of vasectomy Family History Father No problems noted. Mother CVD (cardiovascular disease) Diabetes Social History Housing: Apartment Are you a primary day care assistant to a significant other at home: No Do you presently have visiting nurse or other home services: No Alcohol intake: former Patient Tobacco Use Status: Former Tobacco user e-Cigarette/Vaping Use: Never Used Second Hand Smoke Exposure: No service: No Current occupational status: unemployed Cognitive needs: No Hearing needs: No Vision needs: Yes Review of Systems Const Denies chills and Denies fever(s) Card Reports no additional complaints and Denies syncope Resp Denies cough GI Denies abdominal pain and Denies heartburn Reports as per HPI and Denies change in libido Neuro Denies syncope Psych Denies change in libido Endo Denies change in libido Physical Exam Const General: cooperative, healthy appearing, comfortable and no acute distress Orientation/consciousness: patient oriented x3 HEENT Face and sinus: Yes normal facial exam Mouth: moist mucous membranes Neck Neck: Yes normal visual inspection, Yes full ROM and Yes trachea midline Chest Chest palpation & inspection: normal inspection of the chest Resp Effort & Inspection: normal respiratory effort, able to speak in complete sentences and no respiratory distress GI Inspection: Yes normal to inspection Back/Spine/Pelvis Cervical Spine: normal cervical lordosis Thoracic/Lumbar Spine: thoracic and lumbar spine normal to inspection Skin General skin exam: no rashes or lesions noted Neuro General: patient oriented x3, gait normal, tone normal and moves all extremities Extrem General: Yes normal to inspection and Yes capillary refill normal Assessment & Plan Assessment & Plan (1) Nephrolithiasis: Code(s): N20.0 - Calculus of kidney Category: Medical Plan Extracorporeal Shock Wave Lithotripsy We discussed the nature of the decision and reasonable alternatives for performing the above surgery. Interventions include chemical dissolution, ESWL, ureteroscopy with laser lithotripsy and stent placement, PCNL. Options such as medical therapy were discussed. The relative uncertainties and benefits related to each alternate procedure were adequately discussed. General surgical risks including, but not limited to, pain, bleeding, infection, myocardial infarction, pulmonary embolus, deep vein thrombosis and cerebrovascular accident which may result in further hospitalization were discussed. Full disclosure of the procedure as well as all major risks, benefits and complications were discussed including but not limited to risks of bleeding, injury to the kidney with hematoma or molly-hematoma, failure to fragments stone, potential for ureteric obstruction from stone passage and need for secondary procedures. There is a small long-term risk of hypertension and a question kenneth of diabetes. Success rate of fragmentation and passage is approximately 70- 75%. This is compared to the risks and benefits for ureteroscopy which has a higher success rate but is a more invasive procedure. The success rate of the procedure was discussed. Success of the procedure in the short-term does not necessarily guarantee that long-term success will be maintained. Suitable follow up will need to be maintained. The patient showed understanding of the discussion as well as the typical recovery time, and the outpatient nature of this procedure. Opportunity was given for questions. Repeat-back protocol used to confirm understanding. They wish to proceed with left ESWL Patient Instructions: Imaging studies, laboratory and physical exam results were discussed and reviewed in detail. No major barriers to patient understanding were identified. An opportunity to ask questions regarding the treatment plan was provided. All questions were answered. The patient expressed understanding and agreement with the above treatment plan. The patient is aware they should contact our office by phone for worsening of their current condition or the appearance of new urologic symptoms. Compliance is encouraged with any medications and followup testing that is ordered. It is a privilege to participate in the urologic care of your patient. If you have any questions or concerns regarding treatment for the above conditions, or other urologic issues, please do not hesitate to contact me. The office telephone contact is [phone]. This note is constructed using voice recognition software. While every effort has been made to ensure accuracy manager managed backup services errors may have been included. Yours sincerely, Dr Tomás Otero MD, [facility] - Urology Providers of Expert, Compassionate Care for the Genitourinary System Coding Level of Care Code Est Pt Level 4 (57738) Diagnoses Nephrolithiasis N20.0
== END 2024-01-04 13:51 | disposition home or self-care (01) ==
PROVIDERS: PCP Internal Medicine; Visit Provider Urology
DX: N20.0 Calculus of kidney (principal)
CPT/HCPCS: 99214

== ENCOUNTER → 2024-01-04 12:40 | Outpatient (BNVA) | payer OTHER, SELFPAY | PROVIDERS: PCP Internal Medicine; Visit Provider Urology | DX: N20.0 Calculus of kidney (principal) | CPT/HCPCS: 99212 ==

== ENCOUNTER 2024-01-17 06:32 | Outpatient (REF) | payer OTHER, SELFPAY ==
[2024-01-17 08:02] LABS: Alanine Aminotransferase 33 U/L (0-40); Albumin Level 4.3 g/dL (3.5-5.0); Alkaline Phosphatase 63 U/L (39-117); Anion Gap 12 (12-20); Aspartate Amino Transferase 22 U/L (5-37); Bilirubin Total 0.5 mg/dL (0.0-1.0); Blood Urea Nitrogen 15 mg/dL (9-16); Calcium 9.8 mg/dL (8.4-10.2); Carbon Dioxide 27 mmol/L (22-29); Chloride 107 mmol/L (96-108); Cholesterol 102 mg/dL (<200); Estimated Glomerular Filt Rate 46; Glucose Fasting 128 mg/dL (60-99); HDL Cholesterol 33 mg/dL (>40); LDL Cholesterol Calculated 47 mg/dL (<100); Potassium 4.5 mmol/L (3.3-5.1); Sodium 141 mmol/L (135-145); Total Protein 7.3 g/dL (6.5-8.0); Triglycerides 110 mg/dL (<150)
[2024-01-17 08:08] LABS: Vitamin D 25-OH Total 41.5 ng/mL (>30)
[2024-01-17 10:03] LABS: Creatinine Urine 103.53 mg/dL; Microalbum/Creatinine Ratio Ur 9.6 ug/mg cr (<30)
== END 2024-01-17 06:33 | disposition home or self-care (01) ==
LOC: HO.LAB 06:32
PROVIDERS: PCP Internal Medicine; Visit Provider Internal Medicine
DX: E11.9 Type 2 diabetes mellitus without complications (principal); E55.9 Vitamin D deficiency, unspecified; E78.5 Hyperlipidemia, unspecified
CPT/HCPCS: 36415; 80053; 80061; 82043; 82306; 82570

== ENCOUNTER 2024-01-25 09:41 | Outpatient (AMB) | payer OTHER, SELFPAY ==
[2024-01-25 09:46] VITALS: BP 142/76; BMI 28.8
--- NOTE | 2024-01-25 09:46 | MHC.PC.OV ---
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 Accompanied by: Self / Same As Patient Allergies amlodipine Allergy (Intermediate, Verified 01/25/24 10:00) palpitations, palpatations atorvastatin Allergy (Intermediate, Verified 01/25/24 10:00) numbness and tingling hydrochlorothiazide Allergy (Intermediate, Verified 01/25/24 10:00) loopiness Medication List - Last Reconciled 01/25/24 by Tahmina Gordon MD cholecalciferol (vitamin D3) 25 mcg PO DAILY 90 days doxazosin 2 mg PO DAILY 30 days lisinopril 40 mg PO DAILY 90 days metformin 500 mg PO DAILY 90 days naproxen 500 mg PO BID PRN 7 days rosuvastatin 20 mg PO DAILY 90 days tamsulosin 0.4 mg PO BEDTIME 30 days triamcinolone acetonide 0.1% 1 appl topical DAILY 30 days Tobacco use date assessed: 07/15/23 Fall risk assessment: No Falls in past year Last assessed Fall Risk: 01/25/24 Dental Screening Dental Screen Date: 09/08/23 HPI HPI Comments History of Present Illness Details This is a 64-year-old male with diabetes mellitus type 2, hypertension, pure hypercholesterolemia, nephrolithiasis and chronic kidney disease stage 3 that comes today for follow-up on his conditions. A1c within goal. Blood pressure still elevated and I will discontinue doxazosin and start him on verapamil. Blood pressure will be recheck in 3 weeks by nurse navigator. LDL within goal. Nephrolithiasis is follow by Urology and has vitamin B6 for prophylaxis. His GFR decreased from 59-46 and was advised to increase his water intake and avoid NSAIDs. Has no acute complaints. [facility] Medical History (Updated 01/25/24 @ 10:19 by Tahmina Gordon MD) Anxiety Hypovitaminosis D Right hip pain Rash Wound cellulitis Pure hypercholesterolemia Essential hypertension Diabetes mellitus Surgical History H/O colonoscopy History of vasectomy Family History Father No problems noted. Mother CVD (cardiovascular disease) Diabetes Social History Housing: Apartment Alcohol intake: former Patient Tobacco Use Status: Former Tobacco user e-Cigarette/Vaping Use: Never Used Second Hand Smoke Exposure: No service: No Current occupational status: unemployed Cognitive needs: No Hearing needs: No Vision needs: Yes Questionnaire Thrive Questionnaire Date Thrive assessed: 09/08/23 MARILOU-7 AMB Questionnaire MARILOU-7 Date MARILOU - 7 assessed: 09/08/23 Source: Developed by Drs. Cameron Massey, Elizabeth Correa, Bernabe Rodriguez and colleagues, with an educational red from [employer]. Review of Systems Const All systems reviewed & are unremarkable except as noted in HPI and below Card Denies chest pain at rest, Denies chest pain with activity, Denies edema, Denies irregular heart rhythm, Denies claudication, Denies dyspnea, Denies dyspnea on exertion, Denies orthopnea, Denies paroxysmal nocturnal dyspnea and Denies slow heart rate Resp Denies cough, Denies dyspnea and Denies dyspnea on exertion GI Denies abdominal pain, Denies change in bowel habits, Denies excessive flatus, Denies nausea and Denies vomiting Physical exam (Primary Care) Vital Signs: Last Vital Signs BP 142/76 H 01/25/24 09:46 BMI result Body Mass Index 28.8 Tobacco/Smoking Status: Tobacco use Status Tobacco use date assessed 07/15/23 01/25/24 09:54 Patient Tobacco Use Status Former Tobacco user 01/25/24 09:54 e-Cigarette/Vaping Use Never Used 01/25/24 09:54 Thrive Assessment: Date of Thrive Assessment Date Thrive assessed 09/08/23 01/25/24 09:54 Neck Neck: Yes normal visual inspection and Yes supple Resp Effort & Inspection: normal respiratory effort Auscultation: clear to auscultation bilaterally Cardio Jugular venous distension: no JVD Rate: regular rate Rhythm: regular rhythm Heart sounds: S1 normal heart sound present and S2 normal heart sound present Extrem General: Yes full ROM Results AMB Hemoglobin A1c AMB Hemoglobin A1c 6.5 % Last Edit by BRAVO Horton on 01/25/24 09:57 Results Reviewed Results Reviewed: Laboratory Last Values Hgb A1c (Clinic) 6.5 % (4.0-6.0) H 01/25/24 09:45 Assessment and Plan Assessment & Plan (1) Diabetes mellitus: Code(s): E11.9 - Type 2 diabetes mellitus without complications Qualifiers: Diabetes mellitus type: type 2 Diabetes mellitus residential insulin use: without computer terminal operator use Diabetes mellitus complication status: without complication Qualified Code(s): E11.9 - Type 2 diabetes mellitus without complications Plan: Continue metformin. A1c goal is equal or less than 7%. (2) Essential hypertension: Code(s): I10 - Essential (primary) hypertension Plan: Continue lisinopril. Start verapamil. Discontinue doxazosin. Blood pressure goal is equal or less than 130/80. Recheck blood pressure with nurse navigator in 3 weeks. (3) Pure hypercholesterolemia: Code(s): E78.00 - Pure hypercholesterolemia, unspecified Plan: Continue statins. LDL goal is less than 70. (4) Nephrolithiasis: Code(s): N20.0 - Calculus of kidney Plan: Continue vitamin B6 for prophylaxis. Follow-up with Urology. (5) CKD (chronic kidney disease) stage 3, GFR 30-59 ml/min: Code(s): N18.30 - Chronic kidney disease, stage 3 unspecified Qualifiers: Chronic kidney disease stage 3 subtype: stage 3a (GFR 45-59) Qualified Code(s): N18.31 - Chronic kidney disease, stage 3a Plan: Avoid NSAIDs. Keep blood pressure less than 130/80. Advised increase water intake. Orders: Orders AMB Hemoglobin A1c Today E11.9 - Type 2 diabetes mellitus without complications Lipid Panel Today E78.5 - Hyperlipidemia, unspecified Comprehensive [place]. Panel Fast Today E11.9 - Type 2 diabetes mellitus without complications Vitamin D 25-OH Total Today E55.9 - Vitamin D deficiency, unspecified Microalbumin, Random (w Creat) Today E11.9 - Type 2 diabetes mellitus without complications Medications: New verapamil 40 mg PO DAILY 90 days 90 tabs 1RF I10 - Essential (primary) hypertension Discontinued naproxen Discontinued Reason: Patient Completed Course 500 mg PO BID 7 days PRN 14 tabs 0RF pain doxazosin Discontinued Reason: Patient Completed Course 2 mg PO DAILY 30 days 30 tabs 1RF I10 - Essential (primary) hypertension Coding Level of Care Code Est Pt Level 4 (83551) Complex EM visit Add On G2211 Diagnoses Type 2 diabetes mellitus without complication, without long-term current use of insulin E11.9 Diabetes mellitus type: type 2 Diabetes mellitus computer terminal operator insulin use: without computer terminal operator use Diabetes mellitus complication status: without complication Essential hypertension I10 Pure hypercholesterolemia E78.00 Nephrolithiasis N20.0 Stage 3a chronic kidney disease N18.31 Chronic kidney disease stage 3 subtype: stage 3a (GFR 45-59) Time Spent (min) 22
[2024-01-25 10:15] VITALS: BP 145/80
== END 2024-01-25 10:21 | disposition home or self-care (01) ==
PROVIDERS: PCP Internal Medicine; Visit Provider Internal Medicine
DX: I12.9 Hypertensive chronic kidney disease with stage 1 through stage 4 chronic kidney disease, or unspecified chronic kidney disease (principal); E11.22 Type 2 diabetes mellitus with diabetic chronic kidney disease; N18.31 Chronic kidney disease, stage 3a; E78.00 Pure hypercholesterolemia, unspecified; N20.0 Calculus of kidney
CPT/HCPCS: 83036; 99214; G2211

== ENCOUNTER → 2024-02-09 05:00 | Outpatient (BNV) | payer OTHER, SELFPAY | PROVIDERS: PCP Internal Medicine; Visit Provider Radiology Diagnostic Radiology | DX: N20.0 Calculus of kidney (principal) | CPT/HCPCS: 74018 ==

== ENCOUNTER 2024-02-09 05:38 | Day surgery (SDC) | payer OTHER, SELFPAY ==
--- NOTE | 2023-11-08 13:24 | HO.ANESPROP2 ---
HPI - Anesthesia Eval Consult details Narrative: 63yo M for Left ESWL s/p same 07/2023 with MAC PMFSH Active Problems Active Problems: All Active Problems Nephrolithiasis (Acute) Anxiety (Acute) Physical exam (Acute) Eczema (Acute) Non-healing wound of right lower extremity (Acute) Hypovitaminosis D (Acute) Right hip pain (Acute) Rash (Acute) Wound cellulitis (Acute) Pure hypercholesterolemia (Acute) Essential hypertension (Acute) Diabetes mellitus (Acute) Past Medical History Medical History Anxiety Hypovitaminosis D Right hip pain Rash Wound cellulitis Pure hypercholesterolemia Essential hypertension Diabetes mellitus Family History Family History Father No problems noted. Mother CVD (cardiovascular disease) Diabetes Surgical History Surgical History H/O colonoscopy History of vasectomy History of Problems with Anesthesia: No Social History Social History Housing: Apartment Alcohol intake: former Patient Tobacco Use Status: Former Tobacco user e-Cigarette/Vaping Use: Never Used Second Hand Smoke Exposure: No service: No Current occupational status: unemployed Cognitive needs: No Hearing needs: No Vision needs: Yes Meds Allergies Allergy/AdvReac Type Severity Reaction Status Date / Time amlodipine Allergy Intermediate palpitations, Verified 09/08/23 10:15 palpatations atorvastatin Allergy Intermediate numbness Verified 09/08/23 10:15 and tingling hydrochlorothiazide Allergy Intermediate loopiness Verified 09/08/23 10:15 Assessment and Plan Assessment Anesthesia Assessment: Chart Reviewed Final Anesthetic Review History of Problems with Anesthesia: No
[2024-02-07 09:52] VITALS: BMI 28.8
--- NOTE | 2024-02-07 15:16 | P.CONAN_ITS ---
Documented by User: Mahi Crockett NP 02/07/24 15:17 HPI - Anesthesia Eval Consult details Narrative: 64yo M for Left Lithotripsy ESW s/p same 07/2023 MAC PMFSH Active Problems Active Problems: All Active Problems CKD (chronic kidney disease) stage 3, GFR 30-59 ml/min (Acute) Nephrolithiasis (Acute) Anxiety (Acute) Physical exam (Acute) Eczema (Acute) Non-healing wound of right lower extremity (Acute) Hypovitaminosis D (Acute) Right hip pain (Acute) Rash (Acute) Wound cellulitis (Acute) Pure hypercholesterolemia (Acute) Essential hypertension (Acute) Diabetes mellitus (Acute) Past Medical History Medical History Anxiety Hypovitaminosis D Right hip pain Rash Wound cellulitis Pure hypercholesterolemia Essential hypertension Diabetes mellitus Family History Family History Father No problems noted. Mother CVD (cardiovascular disease) Diabetes Surgical History Surgical History H/O colonoscopy History of vasectomy History of Problems with Anesthesia: No Social History Social History Housing: Apartment Are you a primary career development director to a significant other at home: No Do you presently have visiting nurse or other home services: No Alcohol intake: former Patient Tobacco Use Status: Former Tobacco user e-Cigarette/Vaping Use: Never Used Second Hand Smoke Exposure: No Use of substances other than those prescribed or required for medical reasons: No Have you been hit, kicked, punched, or otherwise hurt by someone within the past year? If so, by whom?: No Are you DNR?: No Advance Directives: No Advance Directives Information Provided: Yes Advance Directives on File: No Recently lost weight without trying: No Nutrition Risks: No Nutritional Risk Poor oral hygiene: No service: No Current occupational status: unemployed Cognitive needs: No Hearing needs: No Vision needs: Yes Meds Allergies Allergy/AdvReac Type Severity Reaction Status Date / Time amlodipine Allergy Intermediate palpitations, Verified 01/25/24 10:00 palpatations atorvastatin Allergy Intermediate numbness Verified 01/25/24 10:00 and tingling hydrochlorothiazide Allergy Intermediate loopiness Verified 01/25/24 10:00 Exam Height,Weight and Vital Signs: Height 5 ft 7 in Weight 83.461 kg Assessment and Plan Assessment Anesthesia Assessment: Chart Reviewed Final Anesthetic Review History of Problems with Anesthesia: No Documented by User: Emi Mann MD 02/09/24 07:30 PMFSH Active Problems Active Problems: All Active Problems CKD (chronic kidney disease) stage 3, GFR 30-59 ml/min (Acute) Nephrolithiasis (Acute) Anxiety (Acute) Physical exam (Acute) Eczema (Acute) Non-healing wound of right lower extremity (Acute) Hypovitaminosis D (Acute) Right hip pain (Acute) Rash (Acute) Wound cellulitis (Acute) Pure hypercholesterolemia (Acute) Essential hypertension (Acute) Diabetes mellitus (Acute) Bradycardia- HR 40s Past Medical History Medical History Anxiety Hypovitaminosis D Right hip pain Rash Wound cellulitis Pure hypercholesterolemia Essential hypertension Diabetes mellitus Family History Family History Father No problems noted. Mother CVD (cardiovascular disease) Diabetes Family history of problems with anesthesia: No Surgical History Surgical History H/O colonoscopy History of vasectomy History of Problems with Anesthesia: No Social History Social History Housing: Apartment Are you a primary career development director to a significant other at home: No Do you presently have visiting nurse or other home services: No Alcohol intake: former Patient Tobacco Use Status: Former Tobacco user e-Cigarette/Vaping Use: Never Used Second Hand Smoke Exposure: No Use of substances other than those prescribed or required for medical reasons: No Have you been hit, kicked, punched, or otherwise hurt by someone within the past year? If so, by whom?: No Are you DNR?: No Advance Directives: No Advance Directives Information Provided: Yes Advance Directives on File: No Recently lost weight without trying: No Nutrition Risks: No Nutritional Risk Poor oral hygiene: No service: No Current occupational status: unemployed Cognitive needs: No Hearing needs: No Vision needs: Yes Meds Allergies Allergy/AdvReac Type Severity Reaction Status Date / Time amlodipine Allergy Intermediate palpitations, Verified 01/25/24 10:00 palpatations atorvastatin Allergy Intermediate numbness Verified 01/25/24 10:00 and tingling hydrochlorothiazide Allergy Intermediate loopiness Verified 01/25/24 10:00 Exam Height,Weight and Vital Signs: Height 5 ft 7 in Weight 83.461 kg Vital Signs Temp Pulse Resp BP Pulse Ox O2 Del Method 02/09/24 07:01 97.3 F 43 L 18 126/63 97 Room Air Pertinent Lab Results Pertinent Lab Results: Lab Results 02/09/24 Range/Units 06:58 POC Glucose 109 (60-115) mg/dL Airway Mallampati Class: II TM Dist: >3cm Neck ROM: Full Loose/Missing/Broken Teeth: No (Denies broken, loose, missing teeth) Heart: RRR Lungs: CTAB Assessment and Plan Assessment Anesthesia Assessment: Anesthesia Plan Discussed and Chart Reviewed Final Anesthetic Review Family History of Problems with Anesthesia: No History of Problems with Anesthesia: No NPO: Yes ASA Class: III Final Preanesthetic Review: No Changes in Pt Med Stat, Meds/Allgs Chart Reviewed, Consent Obtained/Reviewed and Anes Risks/Benef Reviewed Patient Risk: Intermediate Procedure Risk: Low Assessment/Block/Sedation in SS: Assess/Block/Sedation-SS Anesthetic Plan Anesthetic Plan: GA and TIVA Disposition: Standard PACU
--- NOTE | ~2024-02-09 | XR_ITS ---
EXAMINATION: XR ABDOMEN KUB CLINICAL INDICATION: pre-ESWL COMPARISON: 08/11/2023. TECHNIQUE: AP view of the abdomen. FINDINGS: Bowel gas pattern is nonspecific/normal. No focally dilated loop. Previously seen solitary coarse calcification overlying the superior left kidney appears smaller and fragmented on today's examination, with the largest confluent calcification measuring approximately 10 mm. Numerous smaller regional calcifications are present in the mid and upper pole. No right-sided calculi are seen. No masses or organomegaly appreciated. No suspicious osseous abnormalities. 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 There are overriding acetabula bilaterally suggesting pincher GLORY. XR/XR KUB IMPRESSION: 1. Previously seen large confluent calcification left kidney upper pole is significantly fragmented with the largest fragment appearing to measure approximately 10 mm. 2. No left-sided calculi. 3. Ancillary findings as discussed. Electronically signed by: José Luis Eldridge MD 04/19/2024 02:24 PM [facility]
[2024-02-09 06:23] VITALS: BMI 28.2
[2024-02-09 07:01] VITALS: BP 126/63; PULSE 43; RESP 18; TEMP 36.3; O2SAT 97
[2024-02-09 07:01] LABS: Glucose, Whole Blood 109 mg/dL (60-115)
[2024-02-09] MEDS: Lactated Ringers 1,000 ML 100 ML IVCONT (07:13)
[2024-02-09] MEDS: Acetaminophen 1,000 MG/100 ML PIGGYBACK 400 MG IV (07:13)
--- NOTE | 2024-02-09 07:25 | MHC.SHP ---
Pre-Procedural Eval Section A - 24 Hr Update-Section A only Date of Service: 02/09/24 The patient is an INPATIENT: No The patient has been examined within 24 hours of the surgical procedure. The History & Physical has been completed within 30 days and I have reviewed it.: Yes Section B - Complete if H&P > 30 days Chief Complaint: Calculus of kidney Allergies: Allergies Allergy/AdvReac Type Severity Reaction Status Date / Time amlodipine Allergy Intermediate palpitations, Verified 01/25/24 10:00 palpatations atorvastatin Allergy Intermediate numbness Verified 01/25/24 10:00 and tingling hydrochlorothiazide Allergy Intermediate loopiness Verified 01/25/24 10:00 Plan Diagnosis/Plan: Unchanged I have reviewed the history and physical and performed a pertinent physical examination on my patient. No changes have occurred unless specified. Left ESWL. Discussed risks to include but not limited to, blood in the urine, bruising to the skin, kidney hematoma, possible need for another procedure if a stone fragment obstructs the ureter while passing, possible need to repeat procedure if stone is not completely fragmented. Time Spent With Patient Time: Total time managing care of this patient today ____ minutes.
[2024-02-09 08:42] VITALS: BP 129/69; PULSE 57; RESP 16; TEMP 36.1; O2SAT 99
[2024-02-09 08:47] VITALS: BP 135/67; PULSE 54; RESP 16; O2SAT 100
[2024-02-09 08:52] VITALS: BP 146/69; PULSE 57; RESP 18; O2SAT 100
[2024-02-09 08:57] VITALS: BP 132/58; PULSE 51; RESP 18; O2SAT 97
[2024-02-09 09:12] VITALS: BP 113/71; PULSE 49; RESP 18; TEMP 36.1; O2SAT 99
--- NOTE | 2024-02-09 09:35 | PC.NURSE ---
PATIENT RECEIVED ANESTHESA, BUT PROCEDURE UNABLE TO BE COMPLETED.
--- NOTE | 2024-02-15 15:39 | P.OP_ITS ---
Operative Note Operative Note Date of Service: 02/09/24 Narrative: PreOperative Diagnosis:? ? Left Renal stone Post Operative Diagnosis:? Left? Renal stone Procedure:? Lithotripsy machine non operable and the patient did not receive any shock waves Surgeon:?Dr Charo Rodas Anesthesia:? General After informed consent was verified the patient was brought to the operating room and placed in a supine position.? Anesthesia was performed per protocol. Safety pause time-out was performed. Imaging was displayed in the room and la terality confirmed. The lithotripsy machine was checked and operable prior to the patient coming into the procedure room. However at time to start the procedure, the lithotripsy machine did not turn on. The patient did not receive any shockwave therapy. The patient was brought out of general by the anesthesiologist. The patient was transferred to the recovery area in stable condition. Complications: None
== END 2024-02-09 09:36 | disposition home or self-care (01) ==
PROVIDERS: PCP Internal Medicine; Visit Provider Urology
PROC: (CPT 50590; principal; 2024-02-09 07:30)
DX: N20.0 Calculus of kidney (principal); E11.22 Type 2 diabetes mellitus with diabetic chronic kidney disease; I12.9 Hypertensive chronic kidney disease with stage 1 through stage 4 chronic kidney disease, or unspecified chronic kidney disease; N18.30 Chronic kidney disease, stage 3 unspecified; E78.00 Pure hypercholesterolemia, unspecified; Z88.8 Allergy status to other drugs, medicaments and biological substances; Z87.891 Personal history of nicotine dependence; Z56.0 Unemployment, unspecified
CPT/HCPCS: 50590; 74018; 82947; J0131; J0690; J1596; J1940; J2250; J3010

== ENCOUNTER → 2024-02-10 12:33 | Outpatient (BNVA) | payer OTHER, SELFPAY | PROVIDERS: PCP Internal Medicine ==

== ENCOUNTER 2024-03-29 06:45 | Day surgery (SDC) | payer OTHER, SELFPAY ==
[2024-02-21 14:40] VITALS: BMI 28.8
--- NOTE | 2024-02-22 11:04 | P.CONAN_ITS ---
Documented by User: Mahi Crockett NP 03/08/24 11:14 HPI - Anesthesia Eval Consult details Narrative: 64yo M for Left Lithotripsy ESW, 03/29/24 s/p same 01/2024 with GA-LMA 4 PMFSH Active Problems Active Problems: All Active Problems CKD (chronic kidney disease) stage 3, GFR 30-59 ml/min (Acute) Nephrolithiasis (Acute) Anxiety (Acute) Physical exam (Acute) Eczema (Acute) Non-healing wound of right lower extremity (Acute) Hypovitaminosis D (Acute) Right hip pain (Acute) Rash (Acute) Wound cellulitis (Acute) Pure hypercholesterolemia (Acute) Essential hypertension (Acute) Diabetes mellitus (Acute) Past Medical History Medical History Anxiety Hypovitaminosis D Right hip pain Rash Wound cellulitis Pure hypercholesterolemia Essential hypertension Diabetes mellitus Family History Family History Father No problems noted. Mother CVD (cardiovascular disease) Diabetes Family history of problems with anesthesia: No Surgical History Surgical History Hx of lithotripsy H/O colonoscopy History of vasectomy History of Problems with Anesthesia: No Social History Social History Housing: Apartment Are you a primary urgent care physician to a significant other at home: No Do you presently have visiting nurse or other home services: No Alcohol intake: former Patient Tobacco Use Status: Former Tobacco user e-Cigarette/Vaping Use: Never Used Second Hand Smoke Exposure: No Use of substances other than those prescribed or required for medical reasons: No Are you DNR?: No Advance Directives: No Advance Directives Information Provided: Yes service: No Current occupational status: unemployed Cognitive needs: No Hearing needs: No Vision needs: Yes Meds Allergies Allergy/AdvReac Type Severity Reaction Status Date / Time amlodipine Allergy Intermediate palpitations, Verified 03/29/24 07:28 palpatations atorvastatin Allergy Intermediate numbness Verified 03/29/24 07:28 and tingling hydrochlorothiazide Allergy Intermediate loopiness Verified 03/29/24 07:28 Exam Height,Weight and Vital Signs: Height 5 ft 7 in Weight 83.461 kg Assessment and Plan Assessment Anesthesia Assessment: Chart Reviewed Final Anesthetic Review Family History of Problems with Anesthesia: No History of Problems with Anesthesia: No Documented by User: Deni Castellon MD 03/29/24 09:03 [facility] Past Medical History Medical History Anxiety Hypovitaminosis D Right hip pain Rash Wound cellulitis Pure hypercholesterolemia Essential hypertension Diabetes mellitus Family History Family History Father No problems noted. Mother CVD (cardiovascular disease) Diabetes Surgical History Surgical History Hx of lithotripsy H/O colonoscopy History of vasectomy Social History Social History Housing: Apartment Are you a primary urgent care physician to a significant other at home: No Do you presently have visiting nurse or other home services: No Alcohol intake: former Patient Tobacco Use Status: Former Tobacco user e-Cigarette/Vaping Use: Never Used Second Hand Smoke Exposure: No Use of substances other than those prescribed or required for medical reasons: No Are you DNR?: No Advance Directives: No Advance Directives Information Provided: Yes service: No Current occupational status: unemployed Cognitive needs: No Hearing needs: No Vision needs: Yes Meds Allergies Allergy/AdvReac Type Severity Reaction Status Date / Time amlodipine Allergy Intermediate palpitations, Verified 03/29/24 07:28 palpatations atorvastatin Allergy Intermediate numbness Verified 03/29/24 07:28 and tingling hydrochlorothiazide Allergy Intermediate loopiness Verified 03/29/24 07:28 Exam Airway Mallampati Class: II TM Dist: <=3cm Neck ROM: Full Loose/Missing/Broken Teeth: No Heart: ok Lungs: ok Assessment and Plan Assessment Anesthesia Assessment: Anesthesia Plan Discussed Final Anesthetic Review NPO: Yes ASA Class: III Final Preanesthetic Review: No Changes in Pt Med Stat, Meds/Allgs Chart Reviewed, Consent Obtained/Reviewed and Anes Risks/Benef Reviewed Patient Risk: Intermediate Procedure Risk: High Anesthetic Plan Anesthetic Plan: GA and Agree w/ Assess. and Plan Disposition: Standard PACU
[2024-03-29] VITALS (7 sets, daily range): BP systolic 121–138; BP diastolic 59–84; PULSE 44–65; RESP 15–18; TEMP 36.1–36.6; O2SAT 96–97; BMI 28.3
--- NOTE | ~2024-03-29 | XR_ITS ---
EXAMINATION: XR ABDOMEN KUB CLINICAL INDICATION: pre Left ESWL COMPARISON: 02/09/2024. TECHNIQUE: AP view of the abdomen. FINDINGS: There has been no significant interval change. Numerous calcifications overlying the superior pole of the left kidney, with the largest confluent calcification measuring approximately 10 mm. Numerous smaller regional calcifications are present in the mid and upper pole. No right-sided calculi are seen. No masses or organomegaly appreciated. No suspicious osseous abnormalities. Degenerative arthritis in the SI joints and hip joints again noted. XR/XR KUB IMPRESSION: No change from 02/09/2024. Electronically signed by: José Luis Eldridge MD 04/19/2024 02:27 PM [facility]
[2024-03-29] MEDS: Lactated Ringers 1,000 ML 100 ML IVCONT (07:20)
[2024-03-29 07:25] LABS: Glucose, Whole Blood 157 mg/dL (60-115)
[2024-03-29] MEDS: Acetaminophen 1,000 MG/100 ML PIGGYBACK 400 MG IV (07:49)
--- NOTE | 2024-03-29 08:25 | MHC.SHP ---
Pre-Procedural Eval Section A - 24 Hr Update-Section A only Date of Service: 03/29/24 The patient is an INPATIENT: No The patient has been examined within 24 hours of the surgical procedure. The History & Physical has been completed within 30 days and I have reviewed it.: Yes Section B - Complete if H&P > 30 days Chief Complaint: Calculus of kidney Allergies: Allergies Allergy/AdvReac Type Severity Reaction Status Date / Time amlodipine Allergy Intermediate palpitations, Verified 03/29/24 07:28 palpatations atorvastatin Allergy Intermediate numbness Verified 03/29/24 07:28 and tingling hydrochlorothiazide Allergy Intermediate loopiness Verified 03/29/24 07:28 Plan Diagnosis/Plan: Unchanged I have reviewed the history and physical and performed a pertinent physical examination on my patient. No changes have occurred unless specified. Left ESWL. Discussed risks to include but not limited to, blood in the urine, bruising to the skin, kidney hematoma, possible need for another procedure if a stone fragment obstructs the ureter while passing, possible need to repeat procedure if stone is not completely fragmented. Time Spent With Patient Time: Total time managing care of this patient today ____ minutes.
--- NOTE | 2024-03-29 09:32 | P.OP_ITS ---
Operative Note Operative Note Date of Service: 03/29/24 Narrative: PreOperative Diagnosis:? ? Left Renal stone Post Operative Diagnosis:?Left? Renal stone Procedure:?Left? ESWL Surgeon:?Dr Charo Rodas Anesthesia:? General Indications for procedure: The patient understands there is a risk of bruising or hematoma to the kidney, infection, and stone migration following the procedure and subsequent intervention may be required.? - Imaginx 4 mm stone left kidney upper pole Procedure: After informed consent was verified the patient was brought to the operating room and placed in a supine position.? Anesthesia was performed per protocol. Antibiotics confirmed. Safety pause time-out was performed. Imaging was displayed in the room and laterality confirmed. ESWL was performed.?The stone was visualized on both fluoroscopy and ultrasound.? Shockwave lithotripsy was performed, with a maximum rate of 120 h ertz. The first 250 shocks performed with 60 Hertz, after a pause for 3 minutes was completed a total of 2500 shocks to a maximum of power of 20 with a maximum rate of 120 hertz.? Some fragmentation of the stone was appreciated. The patient tolerated the procedure well and was transferred to the recovery area upon completion. Complications: None
== END 2024-03-29 11:03 | disposition home or self-care (01) ==
PROVIDERS: PCP Internal Medicine; Visit Provider Urology
PROC: (CPT 50590; principal; 2024-03-29 08:30)
DX: N20.0 Calculus of kidney (principal); I10 Essential (primary) hypertension; E11.9 Type 2 diabetes mellitus without complications; E55.9 Vitamin D deficiency, unspecified; E78.00 Pure hypercholesterolemia, unspecified; F41.9 Anxiety disorder, unspecified; Z79.84 Long term (current) use of oral hypoglycemic drugs; Z79.899 Other long term (current) drug therapy; Z88.8 Allergy status to other drugs, medicaments and biological substances; Z98.52 Vasectomy status; Z87.891 Personal history of nicotine dependence; Z56.0 Unemployment, unspecified
CPT/HCPCS: 50590; 74018; 82947; J0131; J0690; J2003; J2704; J3010

== ENCOUNTER → 2024-03-29 06:45 | Outpatient (BNV) | payer OTHER, SELFPAY | PROVIDERS: PCP Internal Medicine; Visit Provider Urology | DX: N20.0 Calculus of kidney (principal) | CPT/HCPCS: 50590 ==

== ENCOUNTER → 2024-03-29 07:00 | Outpatient (BNV) | payer OTHER, SELFPAY | PROVIDERS: PCP Internal Medicine; Visit Provider Radiology Diagnostic Radiology | DX: N20.0 Calculus of kidney (principal) | CPT/HCPCS: 74018 ==

== ENCOUNTER 2024-05-05 06:38 | Outpatient (REF) | payer OTHER, SELFPAY ==
[2024-05-05 08:27] LABS: Albumin Level 4.4 g/dL (3.5-5.0); Anion Gap 13 (12-20); Aspartate Amino Transferase 27 U/L (5-37); Bilirubin Total 0.4 mg/dL (0.0-1.0); Blood Urea Nitrogen 22 mg/dL (9-16); Calcium 9.8 mg/dL (8.4-10.2); Carbon Dioxide 24 mmol/L (22-29); Chloride 106 mmol/L (96-108); Cholesterol 101 mg/dL (<200); Estimated Glomerular Filt Rate 41; Glucose Fasting 137 mg/dL (60-99); HDL Cholesterol 30 mg/dL (>40); LDL Cholesterol Calculated 41 mg/dL (<100); Potassium 4.2 mmol/L (3.3-5.1); Sodium 139 mmol/L (135-145); Total Protein 7.4 g/dL (6.5-8.0); Triglycerides 151 mg/dL (<150)
[2024-05-05 08:30] LABS: Creatinine Urine 165.66 mg/dL
[2024-05-05 08:52] LABS: Alanine Aminotransferase 37 U/L (0-40); Alkaline Phosphatase 69 U/L (39-117)
== END 2024-05-05 06:39 | disposition home or self-care (01) ==
LOC: HO.LAB 06:38
PROVIDERS: PCP Internal Medicine; Visit Provider Internal Medicine
DX: Z00.00 Encounter for general adult medical examination without abnormal findings (principal); E78.5 Hyperlipidemia, unspecified; E11.9 Type 2 diabetes mellitus without complications; E55.9 Vitamin D deficiency, unspecified
CPT/HCPCS: 36415; 80053; 80061; 82043; 82306; 82570

== ENCOUNTER 2024-05-09 09:30 | Outpatient (AMB) | payer OTHER, SELFPAY ==
--- NOTE | 2024-05-09 09:42 | A.OFFPC_ITS ---
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 Accompanied by: Self / Same As Patient Allergies amlodipine Allergy (Intermediate, Verified 05/09/24 10:05) palpitations, palpatations atorvastatin Allergy (Intermediate, Verified 05/09/24 10:05) numbness and tingling hydrochlorothiazide Allergy (Intermediate, Verified 05/09/24 10:05) loopiness Medication List - Last Reconciled 05/09/24 by Tahmina Gordon MD cholecalciferol (vitamin D3) 25 mcg PO DAILY 90 days lisinopril 40 mg PO DAILY 90 days metformin 500 mg PO DAILY 90 days oxycodone 5 mg PO .p1d-h3c PRN rosuvastatin 20 mg PO DAILY 90 days tamsulosin 0.4 mg PO BEDTIME 30 days triamcinolone acetonide 0.1% 1 appl topical DAILY 30 days verapamil 40 mg PO DAILY 90 days Tobacco use date assessed: 07/15/23 Fall risk assessment: No Falls in past year Last assessed Fall Risk: 05/09/24 Dental Screening Dental Screen Date: 05/09/24 Did you have a dental visit in the last 12 months?: Yes Did you have a dental problem in the last 6 months where you did not have access to dental care?: No Was dental information given to patient?: Patient has dentist HPI HPI Comments History of Present Illness Details The patient is a 64-year-old male presenting for his physical exam. He has chronic conditions, particularly hyperlipidemia, diabetes, and hypertension. Hyperlipidemia was indicated by an LDL level less than 70, with adjustments in medication already underway. The patient has been on metformin, initially taken once a day but now recommended to twice daily due to an A1c level of 7.2. Previously recorded blood pressure was 97/63, which is lower than typical, but today reads 138/86. His past medical history also includes episodes of kidney stones, with a recent lithotripsy procedure. Medications such as tamsulosin were prescribed, potentially to aid with the passage of stones, however, the patient reports not currently taking it. There is also a past medical history of verapamil use, recently depleted but noted for a 90-day supply. He has undergone colonoscopy and vasectomy procedures in the past. His eyes have reported dryness, and there is mention of using ophthalmic drops for symptomatic relief. - Colonoscopy scheduled - Immunization pending for pneumococcal vaccine - Review and modification of diabetic co ntrol with changes in metformin dose - Regular eye examinations advised due t o dry eye symptoms [facility] Medical History (Updated 05/09/24 @ 12:27 by Tahmina Gordon MD) Anxiety Hypovitaminosis D Right hip pain Rash Wound cellulitis Pure hypercholesterolemia Essential hypertension Diabetes mellitus Surgical History Hx of lithotripsy H/O colonoscopy History of vasectomy Family History Father No problems noted. Mother CVD (cardiovascular disease) Diabetes Social History Housing: Apartment Are you a primary customer care specialist to a significant other at home: No Do you presently have visiting nurse or other home services: No Alcohol intake: former Patient Tobacco Use Status: Former Tobacco user e-Cigarette/Vaping Use: Never Used Second Hand Smoke Exposure: No service: No Current occupational status: unemployed Cognitive needs: No Hearing needs: No Vision needs: Yes Questionnaire PHQ-9 Over the last 2 weeks, how often have you been bothered by any of the following problems? 1. Little interest or pleasure in doing things: not at all 2. Feeling down, depressed, or hopeless: not at all 3. Trouble falling or staying asleep, or sleeping too much: not at all 4. Feeling tired or having little energy: not at all 5. Poor appetite or overeating: not at all 6. Feeling bad about yourself - or that you are a failure or have let yourself or your family down: not at all 7. Trouble concentrating on things, such as reading the newspaper or watching television: not at all 8. Moving or speaking so slowly that other people could have noticed. Or the opposite - being so fidgety or restless that you have been moving around a lot more than usual: not at all 9. Thoughts that you would be better off or of hurting yourself in some way: not at all Total score: 0 Depression Screening Interpretation: Negative Depression Screening Done: Yes 31715 - PHQ-9 Billing: Yes Source: Developed by Drs. Cameron Massey, Elizabeth Correa, Bernabe Rodriguez and colleagues, with an educational red from [employer]. Thrive Questionnaire Date Thrive assessed: 05/09/24 I am a: Patient What is your living situation today?: I have a steady place to live Within the past 12 months, did the food you bought not last and you didn't have the money to get more?: Often true Within the past 12 months, did you worry whether your food would run out before you got money to buy more?: I choose not to answer this question Do you have trouble paying for medicines?: No Do you have trouble getting transportation to medical appointments?: No Do you have trouble paying your heating and electricity bill?: No Do you have trouble taking care of your child, family member or friend?: No Do you have trouble with day-to-day activities such as bathing, preparing meals, shopping, managing finances, etc.?: No Are you currently unemployed and looking for a job?: I choose not to answer this question Are you interested in more education?: No Please select the resources that you would like help with: Utilities and None Currently or been in a relationship where the following occur: I choose not to answer THRIVE Score: 1 AUDIT C Alcohol Use Questionnaire (AUDIT-C) 1. How often do you have a drink containing alcohol?: Never Total Score: 0 Score Reviewed/Action Taken: No MARILOU-7 AMB Questionnaire MARILOU-7 Date MARILOU - 7 assessed: 05/09/24 Feeling nervous, anxious, or on edge: 0 = Not at all Not being able to stop or control worryin = Not at all Worrying too much about different things: 0 = Not at all Trouble relaxin = Not at all Being so restless that it is hard to sit still: 0 = Not at all Becoming easily annoyed or irritable: 0 = Not at all Feeling afraid as if something awful might happen: 0 = Not at all Total MARILOU-7 score (0-4 normal; 5-9 mild; 10-14 moderate; 15-21 severe): 0 Source: Developed by Elizabeth Rogel, Bernabe Rodriguez and colleagues, with an educational red from [employer]. MARILOU-7 Assessment Billing MARILOU-7 Assessment Tool: MARILOU-7 Assessment 19261 Review of Systems Const All systems reviewed & are unremarkable except as noted in HPI and below Card Denies chest pain at rest, Denies chest pain with activity, Denies edema, Denies irregular heart rhythm, Denies claudication, Denies dyspnea, Denies dyspnea on exertion, Denies orthopnea, Denies paroxysmal nocturnal dyspnea and Denies slow heart rate Resp Denies cough, Denies dyspnea and Denies dyspnea on exertion GI Denies abdominal pain, Denies change in bowel habits, Denies excessive flatus, Denies nausea and Denies vomiting Denies urinary hesitancy, Denies urinary incontinence and Denies urinary urgency Physical exam (Primary Care) Vital Signs: Last Vital Signs BP 138/86 05/09/24 09:43 BMI result Body Mass Index 28.5 Tobacco/Smoking Status: Tobacco use Status Tobacco use date assessed 07/15/23 05/09/24 09:54 Patient Tobacco Use Status Former Tobacco user 05/09/24 09:54 e-Cigarette/Vaping Use Never Used 05/09/24 09:54 PHQ-9: PHQ-9 Score PHQ-9: Total score 0 05/09/24 10:17 Depression Screening Interpretation: Negative Thrive Assessment: Date of Thrive Assessment Date Thrive assessed 05/09/24 05/09/24 09:54 Currently or been in a relationship where the following occur: I choose not to answer HENDE Head: Yes normal to inspection, Yes normocephalic and Yes atraumatic Ears: external ears normal Eyes General: appearance normal, both eyes and all related structures Eyelids: Yes eyelids normal Conjunctivae: conjunctivae normal Neck Neck: Yes normal visual inspection and Yes supple Resp Effort & Inspection: normal respiratory effort Auscultation: clear to auscultation bilaterally Cardio Jugular venous distension: no JVD Rate: regular rate Rhythm: regular rhythm Heart sounds: S1 normal heart sound present and S2 normal heart sound present GI Inspection: Yes normal to inspection Palpation (GI): Soft to palpation and nontender Auscultation: normal bowel sounds Skin General skin exam: no rashes or lesions noted Neuro General: no focal motor deficits Extrem General: Yes full ROM Psych Appearance: grossly normal Office Procedures Flu Questionnaire Does the patient have a severe egg allergy?: No Results AMB Hemoglobin A1c AMB Hemoglobin A1c 7.2 % Last Edit by BRAVO Horton on 05/09/24 10:0 2 Immunizations Fluarix Triv [id number] (PF) 45 mcg (15 mcg x 3)/0.5 mL IM syringe Performing Provider: Tahmina Gordon MD Performing Location: [facility] [place] [facility] Documented (not given) by: BRAVO Horton on 05/09/24 09:59 Reason Not Given: Patient Refused pneumoc 20-jessica conj-dip cr(PF) 0.5 mL IM syringe Performing Provider: Tahmina Gordon MD Performing Location: [facility] Administered by: BRAVO Horton on 05/09/24 10:21 Dose Route Admin Location Dispensed Lot Number Expiration Date [employer] 0.5 mL IM Right Deltoid 0.5 mL [id number] 08/22/25 [employer] VIS Given Date VIS Provided VIS Publication Date 05/09/24 Single Vaccine 21 Eligibility Eligibility Date Funding Source Not [facility] Eligible 05/09/24 Private Results Reviewed Results Reviewed: Laboratory Last Values Hgb A1c (Clinic) 7.2 % (4.0-6.0) H 05/09/24 09:42 Coding Level of Care Code Est Pt Prev Care >65y(48284) Diagnoses Physical exam Z00.00 Type 2 diabetes mellitus without complication, without long-term current use of insulin E11.9 Diabetes mellitus type: type 2 Diabetes mellitus assisted insulin use: without assisted use Diabetes mellitus complication status: without complication Additional Codes MARILOU-7 Assessment Billing - MARILOU-7 Assessment Tool: MARILOU-7 Assessment 89622 ([id number]) PHQ-9 - 41106 - PHQ-9 Billing: Yes ([id number]) Time Spent (min) 31 Assessment & Plan Assessment & Plan (1) Physical exam: Code(s): Z00.00 - Encounter for general adult medical examination without abnormal findings Category: Medical (2) Diabetes mellitus: Code(s): E11.9 - Type 2 diabetes mellitus without complications Category: Medical Qualifiers: Diabetes mellitus type: type 2 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 - Continue monitoring blood pressure; discuss changes to antihypertensive management if readings persist as elevated. - Address dry eyes with continued usage of specified ophthalmic drops. - Plan for possible pneumococcal vaccination. - Follow-up scheduled for cholesterol management given previously discussed findings. - No current acute issues require immediate intervention post-lithotripsy; monitor for any recurrence of stone formation. Patient was informed and verbally consented to the use of an ambient scribe for clinic note documentation during this visit. I discussed with the patient the need to adjust his metformin dosage to twice daily to better manage his blood glucose levels due to a recent A1c of 7.2. We also reviewed his blood pressure, which is slightly elevated today compared to his previous readings, and discussed potential changes to his antihypertensive regimen. I advised on continuing drops for his dry eyes and scheduled plans for a pneumococcal vaccination. We reaffirmed the importance of regular screenings and follow-ups, particularly focusing on his hyperlipidemia with follow-up lipid panels needed. There is no current need for acute intervention concerning his kidney stones as he remains free of acute symptoms. All these discussions were conducted ensuring he understood the rationale for each treatment and future steps. Orders: Orders AMB Hemoglobin A1c Today E11.9 - Type 2 diabetes mellitus without complications Pneumococcal 20 Immunization Today Z23 - Encounter for immunization Vitamin D 25-OH Total 4 Months E55.9 - Vitamin D deficiency, unspecified Influenza [id number] Immunization Today Z23 - Encounter for immunization Lipid Panel 4 Months E78.5 - Hyperlipidemia, unspecified Microalbumin, Random (w Creat) 4 Months R80.9 - Proteinuria, unspecified Comprehensive [place]. Panel Fast 4 Months N18.31 - Chronic kidney disease, stage 3a Medications: Changed From metformin 500 mg PO DAILY 90 days 90 tabs 3RF To metformin 500 mg PO BID 180 tabs 3RF 90 days Refilled verapamil 40 mg PO DAILY 90 tabs 1RF 90 days I10 - Essential (primary) hypertension lisinopril 40 mg PO DAILY 90 tabs 0RF 90 days I10 - Essential (primary) hypertension cholecalciferol (vitamin D3) 25 mcg PO DAILY 90 tabs 3RF 90 days rosuvastatin 20 mg PO DAILY 90 tabs 1RF 90 days E78.00 - Pure hypercholesterolemia, unspecified Discontinued tamsulosin Discontinued Reason: Patient Completed Course 0.4 mg PO BEDTIME 30 days 30 caps 1RF Patient Instructions: - Take metformin twice daily for better blood sugar control. - Monitor blood pressure regularly and report any significant changes. - Use prescribed eye drops as needed for dry eyes. - Follow up on scheduled vaccines and routine tests as discussed. - Return for further evaluation if experiencing symptoms related to kidney stones or changes in health.
[2024-05-09 09:43] VITALS: BP 138/86; BMI 28.5
== END 2024-05-09 10:23 | disposition home or self-care (01) ==
PROVIDERS: PCP Internal Medicine; Visit Provider Internal Medicine
DX: Z00.00 Encounter for general adult medical examination without abnormal findings (principal); E11.9 Type 2 diabetes mellitus without complications; Z23 Encounter for immunization

== ENCOUNTER → 2024-05-09 09:30 | Outpatient (BNVA) | payer OTHER, SELFPAY | PROVIDERS: PCP Internal Medicine; Visit Provider Internal Medicine | DX: Z00.00 Encounter for general adult medical examination without abnormal findings (principal); E78.5 Hyperlipidemia, unspecified; E11.22 Type 2 diabetes mellitus with diabetic chronic kidney disease; I12.9 Hypertensive chronic kidney disease with stage 1 through stage 4 chronic kidney disease, or unspecified chronic kidney disease; N18.31 Chronic kidney disease, stage 3a; E55.9 Vitamin D deficiency, unspecified; R80.9 Proteinuria, unspecified; E78.00 Pure hypercholesterolemia, unspecified; Z23 Encounter for immunization | CPT/HCPCS: 83036; 90471; 90472; 90677; 96127; 99397 ==

== ENCOUNTER 2024-05-22 15:21 | Outpatient (REF) | payer OTHER, SELFPAY | END 2024-05-22 15:22 | disposition home or self-care (01) | LOC: HO.US 15:21 | PROVIDERS: PCP Internal Medicine; Visit Provider Urology | DX: N20.0 Calculus of kidney (principal) | CPT/HCPCS: 76775 ==

== ENCOUNTER → 2024-05-22 15:23 | Outpatient (BNV) | payer OTHER, SELFPAY | PROVIDERS: PCP Internal Medicine; Visit Provider Radiology Diagnostic Radiology | DX: N20.0 Calculus of kidney (principal) | CPT/HCPCS: 76775 ==

== ENCOUNTER → 2024-07-03 08:19 | Outpatient (BNVA) | payer OTHER, SELFPAY | PROVIDERS: PCP Internal Medicine; Visit Provider Urology | DX: N20.0 Calculus of kidney (principal) | CPT/HCPCS: 81003; 99212 ==

== ENCOUNTER 2024-08-15 06:28 | Day surgery (SDC) | payer OTHER, SELFPAY ==
--- NOTE | 2024-06-12 09:17 | P.CONAN_ITS ---
HPI - Anesthesia Eval Consult details Narrative: 64yo M for Colonoscopy PMFSH Active Problems Active Problems: All Active Problems Nephrolithiasis (Acute) Anxiety (Acute) Physical exam (Acute) Eczema (Acute) Non-healing wound of right lower extremity (Acute) Hypovitaminosis D (Acute) Right hip pain (Acute) Rash (Acute) Wound cellulitis (Acute) Pure hypercholesterolemia (Acute) Essential hypertension (Acute) Diabetes mellitus (Acute) Past Medical History Medical History (Updated 05/09/24 @ 12:27 by Tahmina Gordon MD) Anxiety Hypovitaminosis D Right hip pain Rash Wound cellulitis Pure hypercholesterolemia Essential hypertension Diabetes mellitus Family History Family History Father No problems noted. Mother CVD (cardiovascular disease) Diabetes Family history of problems with anesthesia: No Surgical History Surgical History Hx of lithotripsy H/O colonoscopy History of vasectomy History of Problems with Anesthesia: No Social History Social History Housing: Apartment Are you a primary health care law specialist to a significant other at home: No Do you presently have visiting nurse or other home services: No Alcohol intake: former Patient Tobacco Use Status: Former Tobacco user e-Cigarette/Vaping Use: Never Used Second Hand Smoke Exposure: No service: No Current occupational status: unemployed Cognitive needs: No Hearing needs: No Vision needs: Yes Meds Allergies Allergy/AdvReac Type Severity Reaction Status Date / Time amlodipine Allergy Intermediate palpitations, Verified 05/09/24 10:05 palpatations atorvastatin Allergy Intermediate numbness Verified 05/09/24 10:05 and tingling hydrochlorothiazide Allergy Intermediate loopiness Verified 05/09/24 10:05 Exam Pertinent Lab Results Pertinent Lab Results: Laboratory Tests 04/22/23 05/05/24 13:08 06:54 WBC 9.8 Hgb 15.0 Hct 44.6 Plt Count 177 Sodium 139 Potassium 4.2 Chloride 106 Carbon Dioxide 24 BUN 22 H Creatinine 1.70 H Assessment and Plan Assessment Anesthesia Assessment: Chart Reviewed Final Anesthetic Review Family History of Problems with Anesthesia: No History of Problems with Anesthesia: No
[2024-08-15 07:25] VITALS: BP 167/77; PULSE 50; RESP 14; TEMP 36.6; O2SAT 98; BMI 29.3
[2024-08-15] MEDS: Lactated Ringers 1,000 ML 100 ML IVCONT (07:29)
[2024-08-15 07:43] LABS: Glucose, Whole Blood 98 mg/dL (60-115)
--- NOTE | 2024-08-15 07:45 | MHC.SHP ---
Pre-Procedural Eval Section A - 24 Hr Update-Section A only Date of Service: 08/15/24 Section B - Complete if H&P > 30 days Chief Complaint: screening Details of Present Illness: Anxiety Hypovitaminosis D Right hip pain Rash Wound cellulitis Pure hypercholesterolemia Essential hypertension Diabetes mellitus Surgical History Hx of lithotripsy H/O colonoscopy History of vasectomy Present Medications: see Short Stay Collaborative assessment Allergies: Allergies Allergy/AdvReac Type Severity Reaction Status Date / Time amlodipine Allergy Intermediate palpitations, Verified 08/15/24 07:24 palpatations atorvastatin Allergy Intermediate numbness Verified 08/15/24 07:24 and tingling hydrochlorothiazide Allergy Intermediate loopiness Verified 08/15/24 07:24 Review of Systems Review of Systems Comment: Ten point ROS negative Exam Exam Comment: Gen appear: No acute distress HEENT: no icterus Chest: No overt resp distress Abd: soft, nontender, nondistended Psych: Stable affect, answering questions appropriately Neuro: A/Ox3 noted to move all extremities spontaneously Ext: no peripheral edema Plan Diagnosis/Plan: Unchanged I have reviewed the history and physical and performed a pertinent physical examination on my patient. No changes have occurred unless specified. Time Spent With Patient Time: Total time managing care of this patient today ____ minutes.
--- NOTE | 2024-08-15 08:05 | HO.ANESPROP2 ---
HPI - Anesthesia Eval Consult details Narrative: for colonoscopy PMFSH Active Problems Active Problems: All Active Problems Nephrolithiasis (Acute) Anxiety (Acute) Physical exam (Acute) Eczema (Acute) Non-healing wound of right lower extremity (Acute) Hypovitaminosis D (Acute) Right hip pain (Acute) Rash (Acute) Wound cellulitis (Acute) Pure hypercholesterolemia (Acute) Essential hypertension (Acute) Diabetes mellitus (Acute) Past Medical History Medical History Anxiety Hypovitaminosis D Right hip pain Rash Wound cellulitis Pure hypercholesterolemia Essential hypertension Diabetes mellitus Family History Family History Father No problems noted. Mother CVD (cardiovascular disease) Diabetes Family history of problems with anesthesia: No Surgical History Surgical History Hx of lithotripsy H/O colonoscopy History of vasectomy History of Problems with Anesthesia: No Social History Social History Housing: Apartment Are you a primary hearing care professional to a significant other at home: No Do you presently have visiting nurse or other home services: No Alcohol intake: former Patient Tobacco Use Status: Former Tobacco user e-Cigarette/Vaping Use: Never Used Second Hand Smoke Exposure: No Use of substances other than those prescribed or required for medical reasons: No Have you been hit, kicked, punched, or otherwise hurt by someone within the past year? If so, by whom?: No Are you DNR?: No Advance Directives: No Advance Directives Information Provided: Yes Recently lost weight without trying: No Nutrition Risks: No Nutritional Risk Poor oral hygiene: No service: No Current occupational status: unemployed Cognitive needs: No Hearing needs: No Vision needs: Yes Meds Allergies Allergy/AdvReac Type Severity Reaction Status Date / Time amlodipine Allergy Intermediate palpitations, Verified 08/15/24 07:24 palpatations atorvastatin Allergy Intermediate numbness Verified 08/15/24 07:24 and tingling hydrochlorothiazide Allergy Intermediate loopiness Verified 08/15/24 07:24 Active Medications: Current Medications Lactated Ringer's (Lr) 1,000 mls @ 100 mls/hr IVCONT .Q10H RASHID Last Admin: 08/15/24 07:29 Dose: 100 mls/hr Exam Height,Weight and Vital Signs: Height 5 ft 5 in Weight 80 kg Last Vital Signs Temp 97.8 F 08/15/24 07:25 Pulse 50 08/15/24 07:25 Resp 14 08/15/24 07:25 BP 167/77 H 08/15/24 07:25 Pulse Ox 98 08/15/24 07:25 O2 Del Method Room Air 08/15/24 07:25 Pertinent Lab Results Pertinent Lab Results: Laboratory Tests 08/15/24 07:39 POC Glucose 98 Airway Mallampati Class: II TM Dist: <=3cm Neck ROM: Full Loose/Missing/Broken Teeth: No Heart: ok Lungs: ok Assessment and Plan Assessment Anesthesia Assessment: Anesthesia Plan Discussed and Chart Reviewed Final Anesthetic Review Family History of Problems with Anesthesia: No History of Problems with Anesthesia: No NPO: Yes ASA Class: II and III Final Preanesthetic Review: No Changes in Pt Med Stat, Meds/Allgs Chart Reviewed, Consent Obtained/Reviewed and Anes Risks/Benef Reviewed Patient Risk: Intermediate Procedure Risk: Low Anesthetic Plan Anesthetic Plan: MAC: and Agree w/ Assess. and Plan Disposition: Standard PACU
--- NOTE | 2024-08-15 08:29 | P.OPN-COLO_ITS ---
Colonoscopy Operative Note Operative Note Date of Service: 08/15/24 Narrative: Procedure: Colonoscopy Indication: Screening Endoscopist: Corin Adam MD Anesthesia Provider: Dr Deni Castellon Anesthesia type: MAC Instrument: Olympus [id number]-[id number] Consent: Indication, risks vs benefits, and alternatives were discussed with the patient who gave written informed consent to proceed. EKG, pulse, pulse oximetry and blood pressure were monitored throughout the procedure. Please see anesthesia flowsheet. Procedure: The patient was brought to the procedure room and placed in the left lateral decubitus position. IV medications were administered by the anesthesia provider in attendance. A digital rectal exam was performed which was abnormal due to finding of hemorrhoids. A distal attachment cap was affixed to the tip of the colonoscope which was then inserted through the anus and advanced through the colon to the cecum at 75 cm,and terminal ileum. Appendiceal orifice and ileocecal valve were identified. Mucosa was carefully examined under high definition white light as the instrument was slowly withdrawn in a retrograde panoramic fashion. Retroflexion was performed in rectum. The procedure was not difficult. There were no immediate obvious complications. The quality of the prep was BBPS: 3+3+2 = adequate Withdrawal time 11 minutes. Limitations: No limitations. Findings: Mucosa: Normal to cecum and terminal ileum. Protruding lesions: * 2 sessile polyp of size 4-5 mm in transverse colon. Cold snare polypectomy was performed. The polyp was completely removed and retrieved. * Medium internal hemorrhoids without stigmata of recent bleeding. Excavated lesions: * Mild diverticulosis of sigmoid colon. Impression: 1. Normal colon mucosa 2. Total of 2 polyps removed 3. Diverticulosis 4. External hemorrhoids Recommendations: - Follow path results. - Repeat colonoscopy in 5 years if polyps are sessile serrated (or hyperplastic), otherwise 7 years.
[2024-08-15 08:56] VITALS: BP 98/54; PULSE 50; RESP 18; TEMP 36.6; O2SAT 93
[2024-08-15 09:11] VITALS: BP 119/68; PULSE 50; RESP 16; TEMP 36.6; O2SAT 96
== END 2024-08-15 09:27 | disposition home or self-care (01) ==
PROVIDERS: PCP Internal Medicine; Visit Provider Internal Medicine
PROC: 0DJD8ZZ Inspection of Lower Intestinal Tract, Via Natural or Artificial Opening Endoscopic (ICD-10-PCS; CPT 45378; principal; 2024-08-15 08:20)
DX: Z12.11 Encounter for screening for malignant neoplasm of colon (principal); K63.5 Polyp of colon; K57.30 Diverticulosis of large intestine without perforation or abscess without bleeding; K64.4 Residual hemorrhoidal skin tags; E55.9 Vitamin D deficiency, unspecified; E11.22 Type 2 diabetes mellitus with diabetic chronic kidney disease; I12.9 Hypertensive chronic kidney disease with stage 1 through stage 4 chronic kidney disease, or unspecified chronic kidney disease; N18.31 Chronic kidney disease, stage 3a; E78.00 Pure hypercholesterolemia, unspecified; F41.9 Anxiety disorder, unspecified; R80.9 Proteinuria, unspecified; Z87.442 Personal history of urinary calculi; L03.115 Cellulitis of right lower limb; Z79.84 Long term (current) use of oral hypoglycemic drugs; Z79.899 Other long term (current) drug therapy; Z88.8 Allergy status to other drugs, medicaments and biological substances; Z98.52 Vasectomy status; Z87.891 Personal history of nicotine dependence; Z56.0 Unemployment, unspecified
CPT/HCPCS: 45385; 82947; 88305; J2003; J2704

== ENCOUNTER → 2024-08-15 06:28 | Outpatient (BNV) | payer OTHER, SELFPAY | PROVIDERS: PCP Internal Medicine; Visit Provider Internal Medicine | DX: Z12.11 Encounter for screening for malignant neoplasm of colon (principal); K63.5 Polyp of colon; K57.30 Diverticulosis of large intestine without perforation or abscess without bleeding; K64.8 Other hemorrhoids | CPT/HCPCS: 45385 ==

== ENCOUNTER 2024-09-22 06:51 | Outpatient (REF) | payer OTHER, SELFPAY ==
[2024-09-22 07:43] LABS: Microalbum/Creatinine Ratio Ur 14.9 ug/mg cr (<30)
[2024-09-22 08:23] LABS: Alanine Aminotransferase 39 U/L (0-40); Albumin Level 4.3 g/dL (3.5-5.0); Alkaline Phosphatase 68 U/L (39-117); Anion Gap 13 (12-20); Aspartate Amino Transferase 24 U/L (5-37); Bilirubin Total 0.3 mg/dL (0.0-1.0); Blood Urea Nitrogen 24 mg/dL (9-16); Calcium 9.8 mg/dL (8.4-10.2); Carbon Dioxide 22 mmol/L (22-29); Chloride 112 mmol/L (96-108); Cholesterol 91 mg/dL (<200); Estimated Glomerular Filt Rate 51; Glucose Fasting 107 mg/dL (60-99); HDL Cholesterol 31 mg/dL (>40); LDL Cholesterol Calculated 39 mg/dL (<100); Potassium 4.3 mmol/L (3.3-5.1); Sodium 143 mmol/L (135-145); Total Protein 7.4 g/dL (6.5-8.0); Triglycerides 109 mg/dL (<150)
[2024-09-22 08:41] LABS: Vitamin D 25-OH Total 34.1 ng/mL (>30)
== END 2024-09-22 06:52 | disposition home or self-care (01) ==
LOC: HO.LAB 06:51
PROVIDERS: PCP Internal Medicine; Visit Provider Internal Medicine
DX: N18.31 Chronic kidney disease, stage 3a (principal); E78.5 Hyperlipidemia, unspecified; E55.9 Vitamin D deficiency, unspecified; E11.9 Type 2 diabetes mellitus without complications
CPT/HCPCS: 36415; 80053; 80061; 82043; 82306; 82570

== ENCOUNTER 2024-09-27 09:41 | Outpatient (AMB) | payer OTHER, SELFPAY ==
--- NOTE | 2024-09-27 10:10 | MHC.PC.OV ---
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: No Accompanied by: Self / Same As Patient Allergies amlodipine Allergy (Intermediate, Verified 09/27/24 10:54) palpitations, palpatations atorvastatin Allergy (Intermediate, Verified 09/27/24 10:54) numbness and tingling hydrochlorothiazide Allergy (Intermediate, Verified 09/27/24 10:54) loopiness Medication List - Last Reconciled 09/27/24 by Tahmina Gordon MD cholecalciferol (vitamin D3) 25 mcg PO DAILY 90 days lisinopril 40 mg PO DAILY 90 days metformin 500 mg PO BID 90 days rosuvastatin 20 mg PO DAILY 90 days triamcinolone acetonide 0.1% 1 appl topical DAILY 30 days verapamil 40 mg PO DAILY 90 days Tobacco use date assessed: 09/27/24 Fall risk assessment: No Falls in past year Last assessed Fall Risk: 09/27/24 Dental Screening Dental Screen Date: 09/27/24 Did you have a dental visit in the last 12 months?: Yes Did you have a dental problem in the last 6 months where you did not have access to dental care?: No Was dental information given to patient?: Patient has dentist HPI HPI Comments History of Present Illness Details The patient is a 64-year-old male presenting with the objective of managing hypertension and monitoring diabetes while evaluating current medication efficacy. He has noted a favorable trend in his glycemic markers with an HbA1c decrease to 6.9%, indicating improved diabetes management. Conversely, his blood pressure remains elevated. The patient previously encountered adverse reactions, such as palpitations and dizziness, with amlodipine and atorvastatin, influencing current drug choices to rosuvastatin for hyperlipidemia and lisinopril for hypertension. Current management strategies include adjusting verapamil to an extended-release formulation intended to provide more consistent blood pressure control. He reports successful adherence to lifestyle modifications, such as exercise, despite mild breathing difficulties, and acknowledges the importance of reducing dietary salt intake. Recent laboratory assessments on September 22 confirmed stable renal function, with normal electrolyte and glucose levels, substantiating the current diabetes management strategy. He recently underwent colonoscopic evaluation revealing a non-malignant hyperplastic polyp, warranting follow-up in a decade. The patient's cessation of smoking and alcohol consumption also contributes positively to his health profile and supports cardiovascular stability. [facility] Medical History Anxiety Hypovitaminosis D Right hip pain Rash Wound cellulitis Pure hypercholesterolemia Essential hypertension Diabetes mellitus Surgical History Hx of lithotripsy H/O colonoscopy History of vasectomy Family History Father No problems noted. Mother CVD (cardiovascular disease) Diabetes Social History Housing: Apartment Are you a primary day care aide to a significant other at home: No Do you presently have visiting nurse or other home services: No Alcohol intake: former Patient Tobacco Use Status: Former Tobacco user e-Cigarette/Vaping Use: Never Used Second Hand Smoke Exposure: No service: No Current occupational status: unemployed Cognitive needs: No Hearing needs: No Vision needs: Yes Questionnaire PHQ-9 Over the last 2 weeks, how often have you been bothered by any of the following problems? 1. Little interest or pleasure in doing things: not at all 2. Feeling down, depressed, or hopeless: not at all 3. Trouble falling or staying asleep, or sleeping too much: not at all 4. Feeling tired or having little energy: not at all 5. Poor appetite or overeating: not at all 6. Feeling bad about yourself - or that you are a failure or have let yourself or your family down: not at all 7. Trouble concentrating on things, such as reading the newspaper or watching television: not at all 8. Moving or speaking so slowly that other people could have noticed. Or the opposite - being so fidgety or restless that you have been moving around a lot more than usual: not at all 9. Thoughts that you would be better off or of hurting yourself in some way: not at all Total score: 0 Depression Screening Interpretation: Negative Depression Screening Done: Yes 25535 - PHQ-9 Billing: Yes Source: Developed by Drs. Cameron Massey, Elizabeth B.Bernabe Lockett and colleagues, with an educational red from [email or web address]. Thrive Questionnaire Date Thrive assessed: 09/27/24 I am a: Patient What is your living situation today?: I have a place to live, but I am worried about losing it in the future Within the past 12 months, did the food you bought not last and you didn't have the money to get more?: Never true Within the past 12 months, did you worry whether your food would run out before you got money to buy more?: Often true Do you have trouble paying for medicines?: No Do you have trouble getting transportation to medical appointments?: No Do you have trouble paying your heating and electricity bill?: Yes Do you have trouble taking care of your child, family member or friend?: No Do you have trouble with day-to-day activities such as bathing, preparing meals, shopping, managing finances, etc.?: No Are you currently unemployed and looking for a job?: I choose not to answer this question Are you interested in more education?: No Please select the resources that you would like help with: Housing/Retirement Currently or been in a relationship where the following occur: I choose not to answer THRIVE Score: 3 AUDIT C Alcohol Use Questionnaire (AUDIT-C) 1. How often do you have a drink containing alcohol?: Never Total Score: 0 Score Reviewed/Action Taken: No MARILOU-7 AMB Questionnaire MARILOU-7 Date MARILOU - 7 assessed: 09/27/24 Feeling nervous, anxious, or on edge: 0 = Not at all Not being able to stop or control worryin = Not at all Worrying too much about different things: 0 = Not at all Trouble relaxin = Not at all Being so restless that it is hard to sit still: 0 = Not at all Becoming easily annoyed or irritable: 0 = Not at all Feeling afraid as if something awful might happen: 0 = Not at all Total MARILOU-7 score (0-4 normal; 5-9 mild; 10-14 moderate; 15-21 severe): 0 Source: Developed by Drs. Cameron Massey, Bernabe Dill and colleagues, with an educational red from [email or web address]. MARILOU-7 Assessment Billing MARILOU-7 Assessment Tool: MARILOU-7 Assessment 18860 Review of Systems Const All systems reviewed & are unremarkable except as noted in HPI and below Card Denies chest pain at rest, Denies chest pain with activity, Denies edema, Denies irregular heart rhythm, Denies claudication, Denies dyspnea, Denies dyspnea on exertion, Denies orthopnea, Denies paroxysmal nocturnal dyspnea and Denies slow heart rate Resp Denies cough, Denies dyspnea and Denies dyspnea on exertion GI Denies abdominal pain, Denies change in bowel habits, Denies excessive flatus, Denies nausea and Denies vomiting Physical exam (Primary Care) Vital Signs: Last Vital Signs BP 170/88 H 09/27/24 10:11 BMI result Body Mass Index 30.0 BMI Assessment/Plan discussion: High BMI High, discussed plan: lifestyle, weight reduction and dietary Tobacco/Smoking Status: Tobacco use Status Tobacco use date assessed 09/27/24 09/27/24 10:21 Patient Tobacco Use Status Former Tobacco user 09/27/24 10:12 e-Cigarette/Vaping Use Never Used 09/27/24 10:12 PHQ-9: PHQ-9 Score PHQ-9: Total score 0 09/27/24 10:57 Depression Screening Interpretation: Negative Thrive Assessment: Date of Thrive Assessment Date Thrive assessed 09/27/24 09/27/24 10:12 Currently or been in a relationship where the following occur: I choose not to answer Resp Effort & Inspection: normal respiratory effort Auscultation: clear to auscultation bilaterally Cardio Jugular venous distension: no JVD Rate: regular rate Rhythm: regular rhythm Heart sounds: S1 normal heart sound present and S2 normal heart sound present Extrem General: Yes full ROM Results AMB Hemoglobin A1c AMB Hemoglobin A1c 6.9 % Last Edit by BRAVO Horton on 09/27/24 10:23 Results Reviewed Results Reviewed: Laboratory Last Values Hgb A1c (Clinic) 6.9 % (4.0-6.0) H 09/27/24 10:10 Coding Level of Care Code Est Pt Level 4 (19691) Complex EM visit Add On G2211 Diagnoses Type 2 diabetes mellitus without complication, without long-term current use of insulin E11.9 Diabetes mellitus type: type 2 Diabetes mellitus long term acute care registered nurse insulin use: without long term acute care registered nurse use Diabetes mellitus complication status: without complication Essential hypertension I10 Pure hypercholesterolemia E78.00 Hypovitaminosis D E55.9 Additional Codes MARILOU-7 Assessment Billing - MARILOU-7 Assessment Tool: MARILOU-7 Assessment 32691 ([id number]) PHQ-9 - 77071 - PHQ-9 Billing: Yes ([id number]) Time Spent (min) 23 Assessment & Plan Assessment & Plan (1) Diabetes mellitus: Code(s): E11.9 - Type 2 diabetes mellitus without complications Category: Medical Qualifiers: Diabetes mellitus type: type 2 Diabetes mellitus long term acute care registered nurse insulin use: without long term acute care registered nurse use Diabetes mellitus complication status: without complication Qualified Code(s): E11.9 - Type 2 diabetes mellitus without complications (2) Essential hypertension: Code(s): I10 - Essential (primary) hypertension Category: Medical (3) Pure hypercholesterolemia: Code(s): E78.00 - Pure hypercholesterolemia, unspecified Category: Medical (4) Hypovitaminosis D: Code(s): E55.9 - Vitamin D deficiency, unspecified Category: Medical Plan I advised transitioning to extended-release verapamil to better manage the patient's hypertension, starting with a 120 mg daily dose, and reevaluating blood pressure in three weeks to determine dose adjustments. The existing metformin regimen for diabetes remains unchanged, given the positive reduction in blood glucose levels and HbA1c. Continuation of rosuvastatin therapy is warranted, given the patient's successful LDL reduction. The patient was encouraged to maintain physical activity and reduce salt in his diet to further aid in managing hypertension. Follow-up laboratory evaluations are planned in four months to monitor his condition. The patient is informed, and we will continue regular health screenings and preventive care. Patient was informed and verbally consented to the use of an ambient scribe for clinic note documentation during this visit. During today's visit, we discussed restructuring the patient's antihypertensive regimen to extended-release verapamil to achieve more consistent blood pressure control. I highlighted the benefits and limitations of this approach, ensuring the patient understands the potential need for dosage adjustment based on subsequent monitoring. Effective diabetes control on the current regimen was acknowledged, with collaboratory results guiding treatment direction. We also talked about maintaining his healthy LDL levels through continued statin therapy and lifestyle modifications. Follow-up appointments were scheduled, and lab tests were planned to evaluate progress. I provided anticipatory guidance on the importance of reducing dietary sodium and maintaining regular physical activity as adjunctive measures to control blood pressure. Orders: Orders AMB Hemoglobin A1c Today E11.9 - Type 2 diabetes mellitus without complications Medications: New verapamil ER 120 mg PO DAILY 90 caps 0RF 90 days I10 - Essential (primary) hypertension Discontinued verapamil Discontinued Reason: Patient Completed Course 40 mg PO DAILY 90 days 90 tabs 1RF I10 - Essential (primary) hypertension Patient Instructions: - Take verapamil 120 mg once daily; monitor blood pressure regularly. - Continue taking metformin 500 mg twice daily as prescribed. - Maintain your current exercise routine and reduce your salt intake in meals. - Follow up with labs in four months. - Watch for any new or worsening symptoms, such as shortness of breath or chest pain, and seek care if necessary. - Plan for a colonoscopy in ten years from your last one unless symptoms arise sooner.
[2024-09-27 10:11] VITALS: BP 170/88
== END 2024-09-27 11:06 | disposition home or self-care (01) ==
LOC: HO.HMCH 09:41
PROVIDERS: PCP Internal Medicine; Visit Provider Internal Medicine
DX: E11.9 Type 2 diabetes mellitus without complications (principal); I10 Essential (primary) hypertension; E78.00 Pure hypercholesterolemia, unspecified; E55.9 Vitamin D deficiency, unspecified

== ENCOUNTER → 2024-09-27 09:41 | Outpatient (BNVA) | payer OTHER, SELFPAY | PROVIDERS: PCP Internal Medicine; Visit Provider Internal Medicine | DX: E11.9 Type 2 diabetes mellitus without complications (principal); I10 Essential (primary) hypertension; E78.00 Pure hypercholesterolemia, unspecified; E55.9 Vitamin D deficiency, unspecified | CPT/HCPCS: 83036; 96127; 99212 ==

== ENCOUNTER → 2024-10-12 10:32 | Outpatient (BNVA) | payer OTHER, SELFPAY | PROVIDERS: PCP Internal Medicine ==

== ENCOUNTER 2025-02-05 07:32 | Outpatient (REF) | payer OTHER, SELFPAY ==
[2025-02-05 10:18] LABS: Microalbum/Creatinine Ratio Ur 7.6 ug/mg cr (<30)
== END 2025-02-05 07:33 | disposition home or self-care (01) ==
LOC: HO.LAB 07:32
PROVIDERS: Visit Provider Internal Medicine
DX: R80.9 Proteinuria, unspecified (principal)
CPT/HCPCS: 82043; 82570

== ENCOUNTER 2025-02-12 10:45 | Outpatient (AMB) | payer OTHER, SELFPAY ==
[2025-02-12 10:49] VITALS: BP 122/86; PULSE 51; TEMP 36.1; O2SAT 98; BMI 29.5
--- NOTE | 2025-02-12 10:49 | MHC.PC.OV ---
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: No Accompanied by: Self / Same As Patient Allergies amlodipine Allergy (Intermediate, Verified 02/12/25 11:02) palpitations, palpatations atorvastatin Allergy (Intermediate, Verified 02/12/25 11:02) numbness and tingling hydrochlorothiazide Allergy (Intermediate, Verified 02/12/25 11:02) loopiness Medication List - Last Reconciled 02/12/25 by Tahmina Gordon MD cholecalciferol (vitamin D3) 25 mcg PO DAILY 90 days lisinopril 40 mg PO DAILY 90 days metformin 500 mg PO BID 90 days rosuvastatin 20 mg PO DAILY 90 days triamcinolone acetonide 0.1% 1 appl topical DAILY 30 days verapamil ER 120 mg PO DAILY 90 days Tobacco use date assessed: 02/12/25 Fall risk assessment: No Falls in past year Last assessed Fall Risk: 02/12/25 Dental Screening Dental Screen Date: 02/12/25 Did you have a dental visit in the last 12 months?: No Did you have a dental problem in the last 6 months where you did not have access to dental care?: No Was dental information given to patient?: Patient has dentist HPI HPI Comments History of Present Illness Details The patient is a 65-year-old male presenting with management of chronic conditions and evaluation of chest pain. The patient has a history of diabetes mellitus, with the most recent HbA1c at 6.9%, indicating stable control. He is currently on metformin 500 mg twice daily. Hypertension is being managed with lisinopril 40 mg and verapamil 120 mg. Blood pressure readings have been stable, with the most recent measurement at 122/86 mmHg. The patient has chronic kidney disease with a GFR of 51, indicating stage 3 CKD. There is no active progression noted at this time. Hyperlipidemia is controlled with rosuvastatin 20 mg, with the latest LDL cholesterol level at 39 mg/dL. The patient reports a history of eczema, for which he uses triamcinolone cream as needed. He has a history of smoking and alcohol use, both of which he has ceased. An abdominal aortic aneurysm screening is planned due to his smoking history and age. The patient reports chest pain located in the middle of the chest, which occurs during exertion. An electrocardiogram and a stress test are planned to evaluate the cardiac cause of the pain. [facility] Medical History (Updated 02/12/25 @ 11:12 by Tahmina Gordon MD) Anxiety Hypovitaminosis D Right hip pain Rash Wound cellulitis Pure hypercholesterolemia Essential hypertension Diabetes mellitus Surgical History Hx of lithotripsy H/O colonoscopy History of vasectomy Family History Father No problems noted. Mother CVD (cardiovascular disease) Diabetes Social History Housing: Apartment Are you a primary healthcare sales representative to a significant other at home: No Do you presently have visiting nurse or other home services: No Alcohol intake: former Patient Tobacco Use Status: Former Tobacco user e-Cigarette/Vaping Use: Never Used Second Hand Smoke Exposure: No service: No Current occupational status: unemployed Cognitive needs: No Hearing needs: No Vision needs: Yes Questionnaire PHQ-9 Over the last 2 weeks, how often have you been bothered by any of the following problems? 1. Little interest or pleasure in doing things: not at all 2. Feeling down, depressed, or hopeless: not at all 3. Trouble falling or staying asleep, or sleeping too much: not at all 4. Feeling tired or having little energy: not at all 5. Poor appetite or overeating: not at all 6. Feeling bad about yourself - or that you are a failure or have let yourself or your family down: not at all 7. Trouble concentrating on things, such as reading the newspaper or watching television: not at all 8. Moving or speaking so slowly that other people could have noticed. Or the opposite - being so fidgety or restless that you have been moving around a lot more than usual: not at all 9. Thoughts that you would be better off or of hurting yourself in some way: not at all Total score: 0 Depression Screening Interpretation: Negative Depression Screening Done: Yes 76481 - PHQ-9 Billing: Yes Source: Developed by Drs. Cameron Massey, Elizabeth Correa, Bernabe Rodriguez and colleagues, with an educational red from [employer]. Thrive Questionnaire Date Thrive assessed: 09/20/24 I am a: Patient What is your living situation today?: I have a place to live, but I am worried about losing it in the future Within the past 12 months, did the food you bought not last and you didn't have the money to get more?: Never true Within the past 12 months, did you worry whether your food would run out before you got money to buy more?: Often true Do you have trouble paying for medicines?: No Do you have trouble getting transportation to medical appointments?: No Do you have trouble paying your heating and electricity bill?: Yes Do you have trouble taking care of your child, family member or friend?: No Do you have trouble with day-to-day activities such as bathing, preparing meals, shopping, managing finances, etc.?: No Are you currently unemployed and looking for a job?: I choose not to answer this question Are you interested in more education?: No Please select the resources that you would like help with: Housing/Assisted Currently or been in a relationship where the following occur: I choose not to answer THRIVE Score: 3 AUDIT C Alcohol Use Questionnaire (AUDIT-C) 1. How often do you have a drink containing alcohol?: Never 3. How often do you have six or more drinks on one occasion?: Never Total Score: 0 Score Reviewed/Action Taken: No MARILOU-7 AMB Questionnaire MARILOU-7 Date MARILOU - 7 assessed: 09/27/24 Feeling nervous, anxious, or on edge: 0 = Not at all Not being able to stop or control worryin = Not at all Worrying too much about different things: 0 = Not at all Trouble relaxin = Not at all Being so restless that it is hard to sit still: 0 = Not at all Becoming easily annoyed or irritable: 0 = Not at all Feeling afraid as if something awful might happen: 0 = Not at all Total MARILOU-7 score (0-4 normal; 5-9 mild; 10-14 moderate; 15-21 severe): 0 Source: Developed by Drs. Cameron Massey, Elizabeth Correa, Bernabe Rodriguez and colleagues, with an educational red from [employer]. MARILOU-7 Assessment Billing MARILOU-7 Assessment Tool: MARILOU-7 Assessment 35464 Review of Systems Const All systems reviewed & are unremarkable except as noted in HPI and below Card Denies chest pain at rest, Denies chest pain with activity, Denies edema, Denies irregular heart rhythm, Denies claudication, Denies dyspnea, Denies dyspnea on exertion, Denies orthopnea, Denies paroxysmal nocturnal dyspnea and Denies slow heart rate Resp Denies cough, Denies dyspnea and Denies dyspnea on exertion Physical exam (Primary Care) Vital Signs: Last Vital Signs Temp 97.0 F 02/12/25 10:49 Pulse 51 02/12/25 10:49 BP 122/86 02/12/25 10:49 Pulse Ox 98 02/12/25 10:49 Oxygen Delivery Method Room Air 02/12/25 10:49 BMI result Body Mass Index 29.5 Tobacco/Smoking Status: Tobacco use Status Tobacco use date assessed 02/12/25 02/12/25 10:53 Patient Tobacco Use Status Former Tobacco user 02/12/25 10:53 e-Cigarette/Vaping Use Never Used 02/12/25 10:53 PHQ-9: PHQ-9 Score PHQ-9: Total score 0 02/12/25 11:07 Depression Screening Interpretation: Negative Thrive Assessment: Date of Thrive Assessment Date Thrive assessed 09/20/24 02/12/25 10:53 Currently or been in a relationship where the following occur: I choose not to answer Resp Effort & Inspection: normal respiratory effort Auscultation: clear to auscultation bilaterally Cardio Jugular venous distension: no JVD Rate: regular rate Rhythm: regular rhythm Heart sounds: S1 normal heart sound present and S2 normal heart sound present Extrem General: Yes full ROM Results AMB Hemoglobin A1c AMB Hemoglobin A1c 6.9 % Last Edit by Naila Black CMA on 02/12/25 10:58 Results Reviewed Results Reviewed: Laboratory Last Values Hgb A1c (Clinic) 6.9 % (4.0-6.0) H 02/12/25 10:57 Coding Level of Care Code Est Pt Level 4 (57298) Complex EM visit Add On G2211 Diagnoses Type 2 diabetes mellitus without complication, without long-term current use of insulin E11.9 Diabetes mellitus type: type 2 Diabetes mellitus fci insulin use: without superintendent marine oil terminal use Diabetes mellitus complication status: without complication Essential hypertension I10 Chest pain R07.9 Pure hypercholesterolemia E78.00 Eczema, unspecified type L30.9 Eczema type: unspecified Former smoker Z87.891 Additional Codes MARILOU-7 Assessment Billing - MARILOU-7 Assessment Tool: MARILOU-7 Assessment 76207 ([id number]) PHQ-9 - 51557 - PHQ-9 Billing: Yes ([id number]) Time Spent (min) 23 Assessment & Plan Assessment & Plan (1) Diabetes mellitus: Code(s): E11.9 - Type 2 diabetes mellitus without complications Category: Medical Qualifiers: Diabetes mellitus type: type 2 Diabetes mellitus superintendent marine oil terminal insulin use: without fci use Diabetes mellitus complication status: without complication Qualified Code(s): E11.9 - Type 2 diabetes mellitus without complications (2) Essential hypertension: Code(s): I10 - Essential (primary) hypertension Category: Medical (3) Chest pain: Code(s): R07.9 - Chest pain, unspecified Category: Medical (4) Pure hypercholesterolemia: Code(s): E78.00 - Pure hypercholesterolemia, unspecified Category: Medical (5) Eczema: Code(s): L30.9 - Dermatitis, unspecified Category: Medical Qualifiers: Eczema type: unspecified Qualified Code(s): L30.9 - Dermatitis, unspecified (6) Former smoker: Code(s): Z87.891 - Personal history of nicotine dependence Category: Social Hx Plan Plan Patient was informed and verbally consented to the use of an ambient scribe for clinic note documentation during this visit. 1. Type 2 diabetes mellitus without complications E11.9 HCC 19 The patient's diabetes is currently well-controlled with an HbA1c of 6.9%. He is on metformin 500 mg twice daily, which he is tolerating well. 2. Essential (primary) hypertension I10 BP goal is equal or less than 130/80. Continue current meds. 3. Hyperlipidemia, unspecified E78.5 Continue statin. LDL goal is less than 70. 4. Dermatitis, unspecified L30.9 Continue steroid cream prn. 5. Chest pain, unspecified R07.9 EG ordered and if normal do stress test. Orders: Orders AMB Hemoglobin A1c Today Z13.9 - Encounter for screening, unspecified US abdominal aortic aneurysm Today Z87.891 - Personal history of nicotine dependence Microalbumin, Random (w Creat) 3 Months R80.9 - Proteinuria, unspecified ECG 12 lead EKG Today R07.9 - Chest pain, unspecified NM cardiolite stress test Today R07.9 - Chest pain, unspecified Lipid Panel 3 Months E78.5 - Hyperlipidemia, unspecified Comprehensive [place]. Panel Fast 3 Months E11.9 - Type 2 diabetes mellitus without complications Medications: Refilled triamcinolone acetonide 0.1% 1 appl topical DAILY 30 grams 1RF 30 days
== END 2025-02-12 11:15 | disposition home or self-care (01) ==
LOC: HO.HMCH 10:46
PROVIDERS: PCP Internal Medicine; Visit Provider Internal Medicine
DX: E11.620 Type 2 diabetes mellitus with diabetic dermatitis (principal); I10 Essential (primary) hypertension; R07.9 Chest pain, unspecified; E78.00 Pure hypercholesterolemia, unspecified; L30.9 Dermatitis, unspecified; Z87.891 Personal history of nicotine dependence

== ENCOUNTER → 2025-02-12 10:45 | Outpatient (REF) | payer OTHER, SELFPAY ==
--- NOTE | 2025-02-12 11:24 | ECG_ITS ---
Test Reason : CP Blood Pressure : */* mmHG Vent. Rate : 50 BPM Atrial Rate : 50 BPM P-R Int : 182 ms QRS Dur : 112 ms QT Int : 438 ms P-R-T Axes : 35 35 84 degrees QTcB Int : 399 ms Sinus bradycardia Minimal voltage criteria for LVH, may be normal variant ( Олег product ) Nonspecific ST and T wave abnormality Abnormal ECG When compared with ECG of 28-Sep-2001 14:45, Nonspecific T wave abnormality now evident in Lateral leads Referred By: Tahmina Gordon Electronically Signed By: Andi Ballard
== END ==
LOC: HO.CARD 10:45
PROVIDERS: PCP Internal Medicine; Visit Provider Internal Medicine
DX: R07.9 Chest pain, unspecified (principal); E11.9 Type 2 diabetes mellitus without complications; I10 Essential (primary) hypertension; E78.00 Pure hypercholesterolemia, unspecified; L30.9 Dermatitis, unspecified; Z79.84 Long term (current) use of oral hypoglycemic drugs; Z79.899 Other long term (current) drug therapy; Z87.891 Personal history of nicotine dependence
CPT/HCPCS: 83036; 93005; 96127; 99212

== ENCOUNTER → 2025-02-12 11:24 | Outpatient (BNV) | payer OTHER, SELFPAY | PROVIDERS: PCP Internal Medicine; Visit Provider Internal Medicine Cardiovascular Disease | DX: R00.1 Bradycardia, unspecified (principal) | CPT/HCPCS: 93010 ==

== ENCOUNTER 2025-03-08 13:30 | Outpatient (AMB) | payer OTHER, SELFPAY ==
[2025-03-08 13:39] VITALS: BP 138/72; PULSE 53; BMI 29.7
--- NOTE | 2025-03-08 13:39 | MHC.OFFVIS ---
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: No Allergies amlodipine Allergy (Intermediate, Verified 03/08/25 13:45) palpitations, palpatations atorvastatin Allergy (Intermediate, Verified 03/08/25 13:45) numbness and tingling hydrochlorothiazide Allergy (Intermediate, Verified 03/08/25 13:45) loopiness Medication List - Last Reconciled 03/08/25 by Daniel Maciel MD cholecalciferol (vitamin D3) 25 mcg PO DAILY 90 days lisinopril 40 mg PO DAILY 90 days metformin 500 mg PO BID 90 days rosuvastatin 20 mg PO DAILY 90 days triamcinolone acetonide 0.1% 1 appl topical DAILY 30 days verapamil ER 120 mg PO DAILY 90 days HPI Comments Details: The patient is a 65-year-old male presenting with dizziness and chest pressure. The symptoms began in October while performing yard work, characterized by a deep pressure sensation and dizziness, occurring intermittently during physical exertion. The patient reports that these episodes have occurred three times, with the last episode occurring a month ago. The patient denies any prior history of heart problems, including myocardial infarction or coronary stents. He has a medical history of diabetes mellitus, hypertension, and hypercholesterolemia, but denies smoking. [facility] Medical History Anxiety Hypovitaminosis D Right hip pain Rash Wound cellulitis Pure hypercholesterolemia Essential hypertension Diabetes mellitus Surgical History Hx of lithotripsy H/O colonoscopy History of vasectomy Family History Father No problems noted. Mother CVD (cardiovascular disease) Diabetes Social History Housing: Apartment Are you a primary residential care facility manager to a significant other at home: No Do you presently have visiting nurse or other home services: No Alcohol intake: former Patient Tobacco Use Status: Former Tobacco user e-Cigarette/Vaping Use: Never Used Second Hand Smoke Exposure: No service: No Current occupational status: unemployed Cognitive needs: No Hearing needs: No Vision needs: Yes Review of Systems ENT Reports dizziness Card Denies chest pain, Denies chest pain at rest, Denies chest pain with activity, Denies rapid heart rate, Denies pedal edema, Denies edema, Denies leg edema, Denies lightheadedness, Denies palpitations, Denies dyspnea, Denies dyspnea on exertion and Denies orthopnea Resp Denies cough, Denies dyspnea and Denies dyspnea on exertion GI Denies hematochezia and Denies change in stool character Musc Denies abnormal gait, Reports limited range of motion, Reports muscle cramps, Denies muscle weakness, Denies numbness, Denies radiating pain into limb, Denies stiffness and Denies tingling Neuro Denies abnormal gait, Reports dizziness, Denies numbness and Denies tingling Endo Denies palpitations Physical Exam Vital Signs: Last Vital Signs Pulse 53 03/08/25 13:39 BP 138/72 03/08/25 13:39 BMI result Body Mass Index 29.7 Const General: comfortable and no acute distress Orientation/consciousness: patient oriented x3 HEENT Other: Unremarkable Head: Yes normal to inspection Neck Neck: Yes normal visual inspection Chest Chest palpation & inspection: normal inspection of the chest Resp Auscultation: clear to auscultation bilaterally Cardio Palpation: normal PMI Heart sounds: S1 normal heart sound present, S2 normal heart sound present, no gallops, no murmurs and no rubs GI Palpation (GI): Soft to palpation Back/Spine/Pelvis Other: unremarkable Skin General skin exam: no rashes or lesions noted Neuro General: patient oriented x3 Extrem General: Yes normal to inspection Psych Mental Status: mental status grossly normal Office Procedures EKG Details: EKG with sinus bradycardia at 53/Min; nonspecific ST-T changes; [place] [id number], Complete Assessment & Plan Assessment & Plan (1) Chest pain: Code(s): R07.9 - Chest pain, unspecified Category: Medical (2) Abnormal EKG: Code(s): R94.31 - Abnormal electrocardiogram [ECG] [EKG] Category: Medical (3) Essential hypertension: Code(s): I10 - Essential (primary) hypertension Category: Medical (4) Diabetes mellitus: Code(s): E11.9 - Type 2 diabetes mellitus without complications Category: Medical Qualifiers: Diabetes mellitus type: type 2 Diabetes mellitus longterm insulin use: without longterm use Diabetes mellitus complication status: without complication Qualified Code(s): E11.9 - Type 2 diabetes mellitus without complications (5) Pure hypercholesterolemia: Code(s): E78.00 - Pure hypercholesterolemia, unspecified Category: Medical Plan Exertional sounding chest pain with multiple cardiovascular risk factors. He needs workup for obstructive CAD. Recommend an echocardiogram and exercise stress perfusion imaging study. Discussion Notes I discussed with the patient the need for a stress test to rule out any cardiac issues, such as blockages, that might be causing the symptoms of dizziness and chest pressure. The patient was informed about the procedure, which involves walking on a treadmill, and the importance of avoiding smoking two hours before the test. Patient was informed and verbally consented to the use of an ambient scribe for clinic note documentation during this visit. Orders: Orders CA echo transthoracic complete Today R07.9 - Chest pain, unspecified CA stress test Today R07.9 - Chest pain, unspecified NM cardiolite stress test Today R07.9 - Chest pain, unspecified Patient Instructions: - Undergo the scheduled echo/stress test to evaluate heart health. - Follow-up appointment to discuss test results - If there is any recurrence of chest pain, seek emergency help. Coding Level of Care Code New Pt Level 4 (30994) Complex EM visit Add On G2211 Diagnoses Chest pain R07.9 Abnormal EKG R94.31 Essential hypertension I10 Type 2 diabetes mellitus without complication, without long-term current use of insulin E11.9 Diabetes mellitus type: type 2 Diabetes mellitus longterm insulin use: without moth exterminator use Diabetes mellitus complication status: without complication Pure hypercholesterolemia E78.00 CPT Codes EKG - CPT: 29642-[id number], Complete ([id number])
== END 2025-03-08 14:00 | disposition home or self-care (01) ==
LOC: HO.HCS 13:31
PROVIDERS: PCP Internal Medicine; Visit Provider Internal Medicine
DX: R07.9 Chest pain, unspecified (principal); R94.31 Abnormal electrocardiogram [ECG] [EKG]; I10 Essential (primary) hypertension; E11.9 Type 2 diabetes mellitus without complications; E78.00 Pure hypercholesterolemia, unspecified
CPT/HCPCS: 93010; 99204; G2211

== ENCOUNTER → 2025-03-08 13:30 | Outpatient (BNVA) | payer OTHER, SELFPAY | PROVIDERS: PCP Internal Medicine; Visit Provider Internal Medicine | DX: R07.9 Chest pain, unspecified (principal); R94.31 Abnormal electrocardiogram [ECG] [EKG]; I10 Essential (primary) hypertension; E11.9 Type 2 diabetes mellitus without complications; E78.00 Pure hypercholesterolemia, unspecified; R42 Dizziness and giddiness; Z87.891 Personal history of nicotine dependence; Z79.84 Long term (current) use of oral hypoglycemic drugs | CPT/HCPCS: 93005; 99202 ==

== ENCOUNTER → 2025-04-06 09:30 | Outpatient (REF) | payer OTHER, SELFPAY ==
--- NOTE | 2025-04-06 09:34 | CA_ITS ---
Transthoracic Echocardiogram Patient (Last, First, Middle): Rosales Duatre, Gender: M Date of : 1960 Age: 65 Procedure Date: 04/06/2025 Procedure Type: Transthoracic Echocardiogram Location: OP Height: 165.1 cm Weight: 80.74 kg BSA: 1.88 m2 Heart Rate: 51 bpm BP: 138 / 72 mmHg Engineering Vice President: KRISTY Referring MD: Daniel Maciel MD Head Inspector And Center Marker: Miah Owen MD Symptoms: R07.9 - Chest pain, unspecified Study Quality: Adequate ECG Rhythm: Bradycardia Conclusions: - 1. Hyperdynamic LV EF of greater than 70% with suggestion of elevated LV end-diastolic pressure 2. Normal cardiac valvular Dopplers 3. Normal measured RV systolic pressure 4. No gross pericardial effusion Findings Left Ventricle Normal left ventricular cavity size. There is normal left ventricular wall thickness. The left ventricular systolic function is hyperdynamic. The visually estimated ejection fraction is >70%. Spectral Doppler is indicative of a pseudonormal filling pattern. Elevated left ventricular end diastolic pressure. Right Ventricle Normal right ventricular cavity size and systolic function. Atria The left atrium is likely dilated. There is no evidence of interatrial shunt. The right atrium is normal in size. Aortic Valve Normal aortic valve structure and function. There is no aortic valve stenosis. There is no aortic valve regurgitation. Mitral Valve Normal mitral valve structure and function. There is trace mitral valve regurgitation. There is no mitral valve stenosis. Pulmonic Valve The pulmonic valve is likely normal. There is trace to mild pulmonic valve regurgitation. Tricuspid Valve Normal tricuspid valve structure. There is trace tricuspid valve regurgitation. The right ventricular systolic pressure is normal. The right ventricular systolic pressure is 23 mmHg. Normal right atrial pressure. There is no evidence of pulmonary hypertension. Great Vessels All visible segments of the aorta are normal in size. The pulmonary artery was not well visualized. There is no dilatation of the ascending aorta measuring 3.40 cm. Venous The inferior vena cava is normal in size and collapses greater than 50% with inspiration. Pericardium/Pleural There is no evidence of pericardial effusion. Prior Study Comparison No prior study available for comparison. Measurements 2D Linear Measurements IVSd: 1.04 0.6-0.9/0.6-1.0 cm LVIDd: 3.85 3.9-5.3/4.2-5.9 cm LVIDd Index: 2.05 2.4-3.2/2.2-3.1 cm/m2 LVIDs: 2.21 2.0-3.6 cm LVPWd: 1.04 0.7-1.1 cm LA Diam: 3.90 2.7-3.8/3.0-4.0 cm LAIDs Index: 2.07 1.5-2.3 cm/m2 LV Mass: 201.94 67-162/88-224 g LV Mass Index: 107.41 43-95/49-115 g/m2 LVOT Diam: 2.00 3.0+(-)1.3 cm 2D Systolic Function EF 4C: 72.50 >55% EF 2C: 73.30 >55% EF BiP: 73.50 >55% Mitral Valve MV Pk E: 0.76 MV PK A: 0.64 MV Decel Time: 259.00 E/A: 1.20 E'Lateral: 8.49 E'Medial: 5.33 E/E' Med: 14.20 E/E' Lat: 8.90 PHT: 76.00 MVA PHT: 2.89 Decel [place]: 2.93 Aortic Valve AoV Pk Denzel: 1.46 AoV Pk Grad: 9.00 LIA: 2.96 LVOT LVOT Pk Denzel: 1.36 LVOT Mn Denzel: 0.80 LVOT VTI: 0.24 LVOT Pk Grad: 7.00 LVOT Mn Grad: 3.00 LVOT Diam: 2.00 LVOT Area: 3.14 Diastolic Function MV Pk E: 0.76 MV Pk A: 0.64 E/A: 1.20 E'Medial: 5.33 E/E' Med: 14.20 E' Laterial: 8.49 E/E' Lat: 8.90 Right Ventricle TAPSE (mm): 24.10 TVS' Denzel: 15.90 Tricuspid Valve TR Pk Denzel: 2.24 TR Pk Grad: 20.00 RA Press: 3.00 RVSP: 23.00 Great Vessels Aorta Sinus of Valsalva: 3.20 2.0-3.5 cm Ao Asc: 3.40 2.1-3.4 cm Ao Arch: 2.70 Pulmonary Veins Pulm Vein S/D 1.40 Pulmonary Valve PV Pk Denzel: 1.44 Peak PV Grad: 8.00 [place] Pk Denzel: 1.70 Updated in Other Vendor System with Status of Final Miah Owen MD electronically signed on 04/06/2025 4:27:01 PM with status of Final
== END ==
LOC: HO.CARD 09:30
PROVIDERS: PCP Internal Medicine; Visit Provider Internal Medicine
DX: R07.9 Chest pain, unspecified (principal)
CPT/HCPCS: 93306

== ENCOUNTER → 2025-04-06 09:34 | Outpatient (BNV) | payer OTHER, SELFPAY | PROVIDERS: PCP Internal Medicine; Visit Provider Internal Medicine Cardiovascular Disease | DX: R07.9 Chest pain, unspecified (principal) | CPT/HCPCS: 93306 ==

== ENCOUNTER → 2025-04-16 09:32 | Outpatient (REF) | payer OTHER, SELFPAY ==
--- NOTE | ~2025-04-16 | NM_ITS ---
EXERCISE MYOCARDIAL PERFUSION STUDY INDICATION: Chest pain TECHNIQUE: The patient was brought in for an exercise perfusion study on 04/16/2025. Patient performed exercise as per Vasyl protocol and was injected 25 mCi of sestamibi once target heart rate was achieved. Images were obtained using the SPECT gamma camera interlaced with the gating device. Images were obtained in supine position. Resting perfusion study was performed on 04/17/2025. Patient was administered 25 mCi of sestamibi intravenously at rest. Images were then obtained in supine position. Total DLP 86 mGy-cm. Images were processed with the software and compared side to side in short axis, horizontal long axis and vertical long axis views. FINDINGS: Raw aquisition reviewed. The stress perfusion study showed no significant perfusion abnormality. Both uncorrected as well as CT attenuation corrected images were reviewed. The gated study shows normal LV systolic function with calculated LVEF of 67%. LV cavity is normal in size. The gated study shows normal wall thickening and contraction of segments. Resting study shows mildly diminished tracer uptake in the basal inferior wall. There is improvement with CT attenuation correction and hence could be from diaphragmatic attenuation artifact. Gating at rest reveals normal wall motion with ejection fraction at 62%. The findings are consistent with no clear reversible or fixed perfusion abnormality. NM/NM cardiolite stress test IMPRESSION: 1. Myocardial perfusion imaging study shows no clear evidence of ischemia or infarction. 2. Gated LVEF is 67% during stress and 62% during rest. 3. Transient ischemic dilatation not present. EKG component of the test reported separately. Electronically signed by: Daniel Maciel MD 04/17/2025 05:09 PM [facility]
--- NOTE | 2025-04-16 09:36 | CA_ITS ---
Acquisition Time: 2025-04-16 10:10:29 Total Exercise Time: 00:09:26 Test Indications: CHEST PAIN Medications: LISINOPRIL METFORMIN ROSUVASTIN Protocol: KATE Max HR: 141 BPM 86% of Pred: 163 BPM Max BP: 166/80 mmHG Max Work Load: 10.7 METS Exercise stress test with exercise 9 mins 26 secs of Kate Protocol, achieving 85% MPHR, with reports of SOB, no chest pain, with isolated PVCs, with normotensive response to exercise. With downsloping ST depression inferolaterally meeting criteria for ischemia. In recovery, breathing improve to baseline. ST segment abnormal even inm 21 mins of recovery . Nuclear images pending. Test reviewed with Dr. Maciel. Referred By: Daniel Maciel Electronically Signed By: Tomi Nguyen
[2025-04-16 13:59] LABS: Microalbum/Creatinine Ratio Ur 107.2 ug/mg cr (<30)
[2025-04-16 14:43] LABS: Alanine Aminotransferase 54 U/L (0-40); Albumin Level 5.2 g/dL (3.5-5.0); Alkaline Phosphatase 83 U/L (39-117); Anion Gap 20 (12-20); Aspartate Amino Transferase 40 U/L (5-37); Blood Urea Nitrogen 25 mg/dL (9-16); Calcium 10.2 mg/dL (8.4-10.2); Carbon Dioxide 18 mmol/L (22-29); Chloride 107 mmol/L (96-108); Cholesterol 116 mg/dL (<200); Estimated Glomerular Filt Rate 40; HDL Cholesterol 35 mg/dL (>40); Potassium 5.1 mmol/L (3.3-5.1); Sodium 140 mmol/L (135-145); Total Protein 8.4 g/dL (6.5-8.0); Triglycerides 161 mg/dL (<150)
== END ==
LOC: HO.CARD 09:32
PROVIDERS: PCP Internal Medicine; Visit Provider Internal Medicine
DX: R07.9 Chest pain, unspecified (principal); R80.9 Proteinuria, unspecified; E78.5 Hyperlipidemia, unspecified; E11.9 Type 2 diabetes mellitus without complications
CPT/HCPCS: 36415; 78452; 80053; 80061; 82043; 82570; 93017; A9500

== ENCOUNTER → 2025-04-16 09:36 | Outpatient (BNV) | payer OTHER, SELFPAY | PROVIDERS: PCP Internal Medicine | DX: I49.3 Ventricular premature depolarization (principal); R06.02 Shortness of breath | CPT/HCPCS: 78452; 93016; 93018 ==

== ENCOUNTER 2025-05-04 06:10 | Outpatient (REF) | payer OTHER, SELFPAY ==
[2025-05-04 07:13] LABS: Hematocrit 45.3 % (42.0-52.0); Hemoglobin 15.5 g/dl (14.0-18.0); Mean Corpuscular HGB Conc 34.2 g/dl (31.0-36.0); Mean Corpuscular Hemoglobin 30.8 pg (27.0-33.0); Mean Corpuscular Volume 90.1 fL (80.0-98.0); NRBC Abs Auto 0.000 X10*3/uL (0.0-0.012); NRBC Pct Auto 0.0 /100WBC (0.0-0.2); Platelet Count 172 X10*3/uL (160-400); Red Blood Count 5.03 X10*6/uL (4.60-5.80); White Blood Count 10.2 X10*3/uL (4.8-10.8)
[2025-05-04 07:21] LABS: INTERNATIONAL NORM RATIO 0.9 (0.9-1.1); Prothrombin Time 11.4 SEC (11.2-13.5)
== END 2025-05-04 06:11 | disposition home or self-care (01) ==
LOC: HO.LAB 06:10
PROVIDERS: PCP Internal Medicine
DX: R07.9 Chest pain, unspecified (principal)
CPT/HCPCS: 36415; 85027; 85610

== ENCOUNTER → 2025-05-09 23:59 | Outpatient (BNV) | payer OTHER, SELFPAY | PROVIDERS: PCP Internal Medicine; Visit Provider Internal Medicine Cardiovascular Disease | DX: I25.118 Atherosclerotic heart disease of native coronary artery with other forms of angina pectoris (principal) | CPT/HCPCS: 93458; 99152 ==

== ENCOUNTER 2025-05-14 09:47 | Outpatient (AMB) | payer OTHER, SELFPAY ==
[2025-05-14 10:10] VITALS: BP 144/82; PULSE 49; RESP 18; O2SAT 97
--- NOTE | 2025-05-14 10:10 | A.OFFPC_ITS ---
Vital Signs 05/14/25 10:10 Height 5 ft 5 in Weight 180 lb 6 oz BMI 30.0 BP 144/82 H Blood Pressure Location Lt brachial Position Sitting Respiration 18 Pulse 49 L Pulse Source Pulse Oximeter Temp Source Temporal Artery Scan Pulse Oximetry (%) 97 Oxygen Delivery Method Room Air Intake Visit Reasons: PE- A1C Sleep Tech Required: No Accompanied by: Self / Same As Patient Allergies amlodipine Allergy (Intermediate, Verified 05/14/25 10:23) palpitations, palpatations atorvastatin Allergy (Intermediate, Verified 05/14/25 10:23) numbness and tingling hydrochlorothiazide Allergy (Intermediate, Verified 05/14/25 10:23) loopiness Medication List - Last Reconciled 05/14/25 by Tahmina Gordon MD aspirin (Adult Low Dose Aspirin) 81 mg PO DAILY cholecalciferol (vitamin D3) 25 mcg PO DAILY 90 days lisinopril 40 mg PO DAILY 90 days metformin 500 mg PO BID 90 days metoprolol succinate ER 25 mg PO DAILY rosuvastatin 20 mg PO DAILY 90 days triamcinolone acetonide 0.1% 1 appl topical DAILY 30 days verapamil ER 120 mg PO DAILY 90 days Tobacco use date assessed: 05/14/25 Fall risk assessment: No Falls in past year Last assessed Fall Risk: 05/14/25 Dental Screening Dental Screen Date: 05/14/25 Did you have a dental visit in the last 12 months?: Yes Did you have a dental problem in the last 6 months where you did not have access to dental care?: No Was dental information given to patient?: Patient has dentist HPI HPI Comments History of Present Illness Details This is a 65-year-old man that comes for his physical exam. He has diabetes mellitus type 2 with an A1c goal of less than 7% and goes to Ophthalmology once a year for diabetic eye exam. Flu vaccine given today. Tdap vaccine done 2015 but he declines it today. Colonoscopy done this year showing hyperplastic polyp and next colonoscopy should be in 10 years. He does have a mild decrease in GFR and microalbuminuria and will be referred to nephrology. He also complains of lumbar pain radiating to the left leg that started 2 happened 2 weeks ago. No previous trauma. No fever, bowel or bladder incontinence. No leg numbness. He has A1c was 8.5% today and dietary changes were advised. [facility] Medical History (Updated 05/14/25 @ 10:39 by Tahmina Gordon MD) Anxiety Hypovitaminosis D Right hip pain Rash Wound cellulitis Pure hypercholesterolemia Essential hypertension Diabetes mellitus Surgical History Hx of lithotripsy H/O colonoscopy History of vasectomy Family History Father No problems noted. Mother CVD (cardiovascular disease) Diabetes Social History Housing: Apartment Are you a primary home health aide caregiver to a significant other at home: No Do you presently have visiting nurse or other home services: No Alcohol intake: former Patient Tobacco Use Status: Former Tobacco user e-Cigarette/Vaping Use: Never Used Second Hand Smoke Exposure: No service: No Current occupational status: unemployed Cognitive needs: No Hearing needs: No Vision needs: Yes Questionnaire Thrive Questionnaire Date Thrive assessed: 05/14/25 What is your living situation today?: I have a place to live, but I am worried about losing it in the future Within the past 12 months, did the food you bought not last and you didn't have the money to get more?: Never true Within the past 12 months, did you worry whether your food would run out before you got money to buy more?: Often true Do you have trouble paying for medicines?: No Do you have trouble getting transportation to medical appointments?: No Do you have trouble paying your heating and electricity bill?: Yes Do you have trouble taking care of your child, family member or friend?: No Do you have trouble with day-to-day activities such as bathing, preparing meals, shopping, managing finances, etc.?: No Are you currently unemployed and looking for a job?: I choose not to answer this question Are you interested in more education?: No Currently or been in a relationship where the following occur: I choose not to answer THRIVE Score: 3 MARILOU-7 AMB Questionnaire MARILOU-7 Date MARILOU - 7 assessed: 09/27/24 Source: Developed by Drs. Cameron Massey, Elizabeth Correa, Bernabe Rodriguez and colleagues, with an educational red from [employer]. Review of Systems Const All systems reviewed & are unremarkable except as noted in HPI and below Card Denies chest pain at rest, Denies chest pain with activity, Denies edema, Denies irregular heart rhythm, Denies claudication, Denies dyspnea, Denies dyspnea on exertion, Denies orthopnea, Denies paroxysmal nocturnal dyspnea and Denies slow heart rate Resp Denies cough, Denies dyspnea and Denies dyspnea on exertion Physical exam (Primary Care) Vital Signs: Last Vital Signs Pulse 49 L 05/14/25 10:10 Resp 18 05/14/25 10:10 BP 144/82 H 05/14/25 10:10 Pulse Ox 97 05/14/25 10:10 Oxygen Delivery Method Room Air 05/14/25 10:10 BMI result Body Mass Index 30.0 Tobacco/Smoking Status: Tobacco use Status Tobacco use date assessed 05/14/25 05/14/25 10:11 Patient Tobacco Use Status Former Tobacco user 05/14/25 10:11 e-Cigarette/Vaping Use Never Used 05/14/25 10:11 Thrive Assessment: Date of Thrive Assessment Date Thrive assessed 05/14/25 05/14/25 10:11 Currently or been in a relationship where the following occur: I choose not to answer [facility] Head: Yes normal to inspection, Yes normocephalic and Yes atraumatic Ears: external ears normal Eyes General: appearance normal, both eyes and all related structures Eyelids: Yes eyelids normal Conjunctivae: conjunctivae normal Neck Neck: Yes normal visual inspection and Yes supple Resp Effort & Inspection: normal respiratory effort Auscultation: clear to auscultation bilaterally Cardio Jugular venous distension: no JVD Rate: regular rate Rhythm: regular rhythm Heart sounds: S1 normal heart sound present and S2 normal heart sound present GI Inspection: Yes normal to inspection Palpation (GI): Soft to palpation and nontender Auscultation: normal bowel sounds Skin General skin exam: no rashes or lesions noted Neuro General: no focal motor deficits Extrem General: Yes full ROM Psych Appearance: grossly normal Office Procedures Flu Questionnaire Does the patient have a severe egg allergy?: No Does the patient have severe life threatening allergies?: No Does the patient have a fever or illness today?: No Has the patient ever had Guillain-Sorento Syndrome?: No Has the patient ever had any past reaction to a flu shot?: No Results AMB Hemoglobin A1c AMB Hemoglobin A1c 8.5 % Last Edit by Dagmar Ivy MA on 05/14/25 10:40 Immunizations Fluarix [id number] (PF) 45 mcg (15 mcg x 3)/0.5 mL IM syringe Performing Provider: Tahmina Gordon MD Performing Location: [facility] [place] [facility] Administered by: Melba Palacios RN on 05/14/25 10:42 Dose Route Admin Location Dispensed Lot Number Expiration Date NDC Relay Technician 0.5 mL IM Left Deltoid 0.5 mL [id number] 11/20/25 [id number] [employer] VIS Given Date VIS Provided VIS Publication Date 05/14/25 Single Vaccine 24 Eligibility Eligibility Date Funding Source Not [facility] Eligible 05/14/25 Private Results Reviewed Results Reviewed: Laboratory Last Values Hgb A1c (Clinic) 8.5 % (4.0-6.0) H 05/14/25 10:13 Coding Level of Care Code Est Pt Level 3 (54020) Est Pt Prev Care >65y(10043) Diagnoses Physical exam Z00.00 Type 2 diabetes mellitus without complication, without long-term current use of insulin E11.9 Diabetes mellitus type: type 2 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 insulin use: without penitentiary use Diabetes mellitus complication status: without complication Microalbuminuria R80.9 Lumbar pain M54.50 Time Spent (min) 33 Assessment & Plan Assessment & Plan (1) Physical exam: Code(s): Z00.00 - Encounter for general adult medical examination without abnormal findings Category: Medical (2) Diabetes mellitus: Code(s): E11.9 - Type 2 diabetes mellitus without complications Category: Medical Qualifiers: Diabetes mellitus type: type 2 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 Continue diabetic eye exam yearly. Consider Tdap vaccine next office visit. Referred to nephrology for microalbuminuria. For lumbar pain x-ray was order and he was referred to physical therapy. Also referred to pain management for lumbar pain. A1c goal is equal or less than 7%. Blood pressure goal is equal or less than 130/80. LDL goal is less than 70. Orders: Orders Lipid Panel 4 Months E78.5 - Hyperlipidemia, unspecified Vitamin B12 and Folate 4 Months E53.8 - Deficiency of other specified B group vitamins PT Evaluation and Treatment Today M54.50 - Low back pain, unspecified AMB Hemoglobin A1c Today Z13.9 - Encounter for screening, unspecified Vitamin D 25-OH Total 4 Months E55.9 - Vitamin D deficiency, unspecified Microalbumin, Random (w Creat) 4 Months R80.9 - Proteinuria, unspecified Comprehensive [place]. Panel Fast 4 Months E11.9 - Type 2 diabetes mellitus without complications XR lumbar spine 2-3V Today M54.50 - Low back pain, unspecified Influenza [id number] Immunization Today Z23 - Encounter for immunization Referrals Pain Management Referral M54.50 - Low back pain, unspecified Nephrology Referral R80.9 - Proteinuria, unspecified
== END 2025-05-14 10:44 | disposition home or self-care (01) ==
LOC: HO.HMCH 09:48
PROVIDERS: PCP Internal Medicine; Visit Provider Internal Medicine
DX: Z00.00 Encounter for general adult medical examination without abnormal findings (principal); E11.9 Type 2 diabetes mellitus without complications; R80.9 Proteinuria, unspecified; M54.50 Low back pain, unspecified; Z23 Encounter for immunization

== ENCOUNTER → 2025-05-14 09:47 | Outpatient (BNVA) | payer OTHER, SELFPAY | PROVIDERS: PCP Internal Medicine; Visit Provider Internal Medicine | DX: Z00.00 Encounter for general adult medical examination without abnormal findings (principal); E11.9 Type 2 diabetes mellitus without complications; R80.9 Proteinuria, unspecified; M54.50 Low back pain, unspecified; Z23 Encounter for immunization; E55.9 Vitamin D deficiency, unspecified; E53.8 Deficiency of other specified B group vitamins | CPT/HCPCS: 83036; 90471; 90472; 90656; 99212; 99397 ==